=== PATIENT | male | born 1980 | race Caucasian/White ===

== ENCOUNTER 2019-08-07 19:49 | Emergency (ER) | payer OTHER, SELFPAY ==
--- OUTSIDE RECORDS SUMMARY | 2019-08-07 19:51 | XMS REPORT ---
:1980 Author Organization [facility] t Address [address] Mcgrath [address] [place] [id number] Care Team Providers Name Role Phone UNKNOWN Primary Care Physician Unavailable HAWA CONTRERAS M.D. Attending Clinician Unavailable HAWA CONTRERAS M.D. Admitting Clinician Unavailable Problems This patient has no known problems. Allergies, Adverse Reactions, Alerts This patient has no known allergies or adverse reactions. Medications This patient has no known medications. Procedures This patient has no known procedures. Results Test Description Test Time Test Comments Results Result Comments Source Thyroid Stimulating Hormone (TSH) 2016-12-06 13:34:00 Test Item Value Reference Range Interpretation Comme nts TSH (test code = TSH) 1.59 mIU/mL 0.270-4.200 N RPR, [id number] 12:29:00 Test Item Value Reference Range Interpretation Comments RPR (test code = RPR) Non-Reactive Non-Reactive N
[2019-08-07 20:57] LABS: Absolute Lymphocytes (CBC) 1.6 K/uL (0.7-4.9); Basophils % 0.4 % (0-1.3); Hematocrit 45.1 % (39.6-49.0); Lymphocytes % 20.6 % (15.3-44.8); MPV 8.9 fL (7.6-11.3); RBC Red Blood Cell Count 4.92 M/uL (4.33-5.43)
[2019-08-07 21:03] LABS: Barbiturates NEGATIVE (NEGATIVE); Benzodiazepines POSITIVE (NEGATIVE); Cocaine POSITIVE (NEGATIVE); METHAMPHETAM POSITIVE (NEGATIVE); Methadone NEGATIVE (NEGATIVE); Opiates POSITIVE (NEGATIVE); Phencyclidine NEGATIVE (NEGATIVE); THC Cannibis NEGATIVE (NEGATIVE)
[2019-08-07] MEDS ORDERED: THIAMINE 200 MG/2 ML INJ ONE (21:03)
[2019-08-07] MEDS ORDERED: NA CHLORIDE 0.9% 1,000 ML ONE (21:04)
[2019-08-07 21:06] LABS: Protime INR 1.01
[2019-08-07] MEDS ORDERED: NICOTINE 21 MG/PAT TD ONE (21:06)
[2019-08-07 21:09] LABS: Urine Blood NEGATIVE (NEG); Urine Glucose NEGATIVE (NEG); Urine Protein NEGATIVE (NEG); Urine Specific Gravity >1.030 (1.005-1.030); Urine pH 5.5 (5.0-7.0)
[2019-08-07 21:23] LABS: ALT/SGPT 18 U/L (12-78); AST/SGOT 11 U/L (15-37); Albumin 3.2 g/dL (3.4-5.0); Alkaline Phosphatase 105 U/L (45-117); BUN Blood Urea Nitrogen 7 mg/dL (7-18); Bicarbonate 24 mmol/L (21-32); Bilirubin Direct < 0.1 mg/dL (0-0.2); Bilirubin Total 0.3 mg/dL (0.2-1.0); Glucose Level 119 mg/dL (74-106); Potassium 3.5 mmol/L (3.5-5.1); Sodium Level 142 mmol/L (136-145)
--- NOTE | 2019-08-07 23:20 | ER ---
Nurse's Notes [facility] Name: Dami Newton Age: 39 yrs Sex: Male : 1980 Arrival Date: 08/07/2019 Time: 19:56 Bed 15 Private MD: Diagnosis: Alcohol abuse with intoxication;Abuse of non-psychoactive substances;Cocaine abuse;Major depressive disorder, recurrent;Bipolar disorder Presentation: 08/06 19:56 Chief complaint: EMS states: He is under the influence of alcohol and medications. He ca1 said he took Klonopin, Hydrocodone and Lexapro. His mom called us because he was talking about hanging himself. Reports History of previous suicide attempts. Pt has history of schizophrenia and bipolar and has not taken his meds for 5-6 months. Coronavirus screen: Proceed with normal triage. Patient denies a cough. Patient denies shortness of breath or difficulty breathing. Patient denies measured and/or subjective temperature greater than 100.4F prior to today's visit. Patient denies travel on a cruise ship or to a country the [facility] currently lists as an affected area. Patient denies contact with known and/or suspected case of COVID-19. Ebola Screen: Patient negative for fever greater than or equal to 101.5 degrees Fahrenheit, and additional compatible Ebola Virus Disease symptoms Patient denies exposure to infectious person. Patient denies travel to an Ebola-affected area in the 21 days before illness onset. No symptoms or risks identified at this time. Initial Sepsis Screen: Does the patient meet any 2 criteria? No. Patient's initial sepsis screen is negative. Does the patient have a suspected source of infection? No. Patient's initial sepsis screen is negative. Risk Assessment: Do you want to hurt yourself or someone else? Patient reports no desire to harm self or others. Onset of symptoms was August 07, 2019. 19:56 Method Of Arrival: EMS: [facility] ca1 19:56 Acuity: STEVE 2 ca1 21:36 Care prior to arrival: None. Activity prior to arrival: None. ls4 Triage Assessment: 21:36 General: Appears obese, Behavior is slurring words, unbalanced unsteady gate . Smells ls4 of alcohol, Reports. Pain: Denies pain. EENT: No deficits noted. No signs and/or symptoms were reported regarding the EENT system. Neuro: Level of Consciousness is awake, alert, obeys commands, Oriented to person, place, time, situation. Cardiovascular: No deficits noted. Denies chest pain, diaphoresis, fatigue, lightheadedness, nausea, palpitations, shortness of breath, syncope, vomiting. Respiratory: Airway is patent Respiratory effort is even, unlabored. GI: Abdomen is round non-distended, obese, Bowel sounds present X 4 quads. Patient currently denies abdominal pain, cramping, diarrhea, nausea, pain, vomiting. : No deficits noted. No signs and/or symptoms were reported regarding the genitourinary system. Derm: Skin is intact, is healthy with good turgor, Skin is dry, Skin is pink, warm \T\ dry. Musculoskeletal: Circulation, motion, and sensation intact. Capillary refill < 3 seconds, Range of motion: intact in all extremities, Swelling absent. Historical: - Allergies: 20:01 Ruxulti; ca1 - PMHx: 20:01 addiction; Anxiety; Bipolar disorder; Depression; Paranoid Schizophrenia; ca1 - PSHx: 20:01 paranasal surg; eye surg; ankle surg; ca1 - Immunization history:: Adult Immunizations up to date. - Social history:: Smoking status: Patient reports the use of cigarette tobacco products, smokes two packs cigarettes per day. Patient uses alcohol, on a daily basis. Patient/guardian denies using. Screenin:40 Abuse screen: Denies threats or abuse. Denies injuries from another. Nutritional ls4 screening: No deficits noted. Tuberculosis screening: No symptoms or risk factors identified. Fall Risk None identified. Assessment: 20:15 Reassessment: Pt reports he took Klonopin 8 tabs, Dille 5-6 tabs and Liter alcoholic ca1 drink. 20:19 Reassessment: Called Poison Control Center, Spoke with Radha. Suggest OD panel, EKG, ca1 cardiac and BP monitoring till baseline. Bolus if BP drops. Case # [id number]. 20:30 Reassessment: Ranjana Newton, , . Please call for updates. tl1 21:23 Pain: Denies pain. ls4 21:57 Reassessment: Patient appears in no apparent distress at this time. Patient and/or ls4 family updated on plan of care and expected duration. Pain level reassessed. Patient is alert, oriented x 3, equal unlabored respirations, skin warm/dry/pink. 08/07 00:00 Reassessment: Patient appears in no apparent distress at this time. Patient and/or ls4 family updated on plan of care and expected duration. Pain level reassessed. Patient is alert, oriented x 3, equal unlabored respirations, skin warm/dry/pink. [facility] POISON CONTROL CLOSED PT CASE. 02:00 Reassessment: Patient appears in no apparent distress at this time. Patient is alert, rr5 oriented x 3, equal unlabored respirations, skin warm/dry/pink. received from mary SUN for transfer to [facility] [place],awaiting for EMS transport. 02:59 Reassessment: Patient appears in no apparent distress at this time. Patient is alert, rr5 oriented x 3, equal unlabored respirations, skin warm/dry/pink. report given to [facility], awake, alert, ambulatory, breathing spontaneously at room air. no complaints made. Psych: 08/06 20:05 Objective: Patient is cooperative, Speech is slurred, Affect is flat. ls4 20:05 Subjective: Patient's mood is sad, hopeless, Delusions are denied, Hallucinations are ls4 denied Having thoughts of suicide. Plan for suicide is HANG HIMSELF. Interventions: Removed personal items and placed in bag. Urine collected and sent for urine drug test. Belonging list filled out. PAPER SCRUBS ON PT. Suicide Risk Assessment: Sad Person Scale: Sex of patient: Male: Score 1 point. Age of patient: Score 0 point if patient falls outside of specified age parameters. Depression: Score 1 point if signs of depression are present. Previous Attempt: Score 1 point if patient has previously attempted suicide. Substance Abuse: Score 1 point if patient abuses alcohol or drugs. Rational Thinking: Score 0 point if patient has rational thinking. Social Support: Score 1 point if social support is lacking and/or unavailable. Organized Plan: Score 1 point if patient had a plan in place. Relationship: Score 0 point if patient has a spouse or domestic partner. Chronic Sickness: Score 1 point if patient has illness, chronic, debilitating, or severe. TOTAL POINTS: If total points are 7-10, the proposed clinical action is to hospitalize or commit. Implement suicide precautions. Safety Checks: Personal items have been removed. Door is open. SITTER AT BEDSIDE. Patient uses one fifth of liquor, Last use was 3 hours ago. Patient does not have a history of DTs. Patient uses benzodiazepines Patient uses cocaine, Last use was 3 days ago. Patient uses hallucinogens Patient uses methamphetamines monthly, Last use was 1 months ago. Patient uses tobacco 2 packs Frequency daily, Last use was 3 hours ago. Vital Signs: 19:56 BP 102 / 61; Pulse 75; Resp 16 S; Temp 97.5(TE); Pulse Ox 98% on R/A; Weight 108.86 kg ca1 (R); Height 5 ft. 10 in. (177.80 cm) (R); 08/07 00:56 BP 116 / 60; Pulse 74; Resp 14; Temp 97.4; Pulse Ox 99% on R/A; Pain 0/10; ls4 08/06 19:56 Body Mass Index 34.44 (108.86 kg, 177.80 cm) ca1 ED Course: 08/06 19:56 Patient arrived in ED. ds1 20:00 Triage completed. ca1 20:01 Arm band placed on right wrist. ca1 20:04 Safety Checks: Personal items have been removed. The door is open or patient has been ls4 placed in a hallway bed/chair. 20:04 No provider procedures requiring assistance completed. Patient maintains SpO2 ls4 saturation greater than 95% on room air. 20:19 Trell Gutierrez MD is Attending Physician. [facility] 20:29 Mary Robin, CORINNE is Primary Nurse. ls4 20:45 Initial lab(s) drawn, by me, sent to lab. EKG done, by ED staff, reviewed by Trell ltPrashanth Gutierrez MD. Inserted saline lock: 20 gauge in right antecubital area, using aseptic technique. 21:40 Patient has correct armband on for positive identification. Side rails up X 1. ls4 Valuables inventory done. Locked in safe. See valuables checklist. Eunice PCT at bedside. Sitter at bedside. 21:57 No apparent distress. Resting quietly. ls4 08/07 02:56 IV discontinued, intact, bleeding controlled, No redness/swelling at site. Pressure rr5 dressing applied. Administered Medications: 08/06 21:00 Drug: Thiamine 100 mg Route: IV; Rate: per protocol; Site: right antecubital; ls4 21:55 Follow up: Response: No adverse reaction; IV Status: Completed infusion; IV Intake: 1ml 4 21:01 Drug: NS 0.9% 1000 ml Route: IV; Rate: 1 bolus; Site: right antecubital; ls4 21:55 Follow up: IV Status: Completed infusion; IV Intake: 1000ml 4 08/07 00:59 Drug: Banana Bag - (NS 0.9% 1000 ml, foLIC Acid 1 mg, Thiamine 100 mg, Multivitamin 1 ls4 amp) Route: IV; Rate: 125 ml/hr; Site: right antecubital; 03:04 Follow up: Response: No adverse reaction; IV Status: Completed infusion; Infusion rr5 continued upon transfer; IV Intake: 250ml Intake: 08/06 21:55 IV: 1ml; Total: 1ml. 4 :55 IV: 1000ml; Total: 1001ml. 4 08/07 03:04 IV: 250ml; Total: 1251ml. rr5 Outcome: 08/06 23:18 ER care complete, transfer ordered by . [facility] 08/07 02:56 Transferred by ground EMS to other acute care facility: [facility]. rr5 Transfer form completed. Condition: stable Instructed on the need for transfer. 03:03 Patient left the ED. rr5 Signatures: Trell Gutierrez MD MD cha Sanford, Demi ds1 Christina Jennings RN RN tl1 Mary Robin RN RN ls4 Janes Cameron RN RN rr5 Lisa Singh RN RN ca1 Eunice Monsivais lt1 Corrections: (The following items were deleted from the chart) 08/06 20:02 19:56 Chief complaint: EMS states: He is under the influence of alcohol and ca1 medications. He said he took Klonopin, Hydrocodone and Lexapro. His mom called us because he was talking about hanging himself. Reports History of previous suicide attempts. ca1 20:15 20:11 Reassessment: ca1 ca1 20:19 20:11 Reassessment: Reassessment: ca1 ca1 21:02 20:10 Reassessment: Pt reports he took Klonopin 8 tabs, Dille 5-6 tabs and Liter ca1 alcoholic drink. [facility] 08/07 01:06 00:00 Reassessment: Patient appears in no apparent distress at this time. Patient ls4 and/or family updated on plan of care and expected duration. Pain level reassessed. Patient is alert, oriented x 3, equal unlabored respirations, skin warm/dry/pink. ls4
--- NOTE | 2019-08-07 23:20 | EDPHYS ---
Physician Documentation [facility] Name: Dami Nweton Age: 39 yrs Sex: Male : 1980 Arrival Date: 08/07/2019 Time: 19:56 Bed 15 Private MD: ED Physician Trell Gutierrez HPI: 08/06 20:45 This 39 yrs old Male presents to ER via EMS with complaints of Suicidal karmen Ideation. 20:45 The patient presents to the emergency department with depression, a history of karmen substance abuse, Type: beer, the amount of abuse is unknown. Onset: The symptoms/episode began/occurred 3 day(s) ago. Past psychiatric history: Prior diagnosis: depression, Psychiatric medications include: Klonipin, Lexapro, hydrocodone. Associated signs and symptoms: Pertinent positives; anxiety, depression, substance abuse, suicide ideation. Severity of symptoms: At their worst the symptoms were mild. The patient has experienced similar episodes in the past, multiple times. Historical: - Allergies: 20:01 Ruxulti; ca1 - PMHx: 20:01 addiction; Anxiety; Bipolar disorder; Depression; Paranoid Schizophrenia; ca1 - PSHx: 20:01 paranasal surg; eye surg; ankle surg; ca1 - Immunization history:: Adult Immunizations up to date. - Social history:: Smoking status: Patient reports the use of cigarette tobacco products, smokes two packs cigarettes per day. Patient uses alcohol, on a daily basis. Patient/guardian denies using. ROS: 20:50 Constitutional: Negative for fever, chills, and weight loss, Eyes: Negative for injury, karmen pain, redness, and discharge, ENT: Negative for injury, pain, and discharge, Neck: Negative for injury, pain, and swelling, Cardiovascular: Negative for chest pain, palpitations, and edema, Respiratory: Negative for shortness of breath, cough, wheezing, and pleuritic chest pain, Abdomen/GI: Negative for abdominal pain, nausea, vomiting, diarrhea, and constipation, Back: Negative for injury and pain, : Negative for injury, bleeding, discharge, and swelling, MS/Extremity: Negative for injury and deformity, Skin: Negative for injury, rash, and discoloration, Neuro: Negative for headache, weakness, numbness, tingling, and seizure, Allergy/Immunology: Negative for hives, rash, and allergies, Endocrine: Negative for neck swelling, polydipsia, polyuria, polyphagia, and marked weight changes, Hematologic/Lymphatic: Negative for swollen nodes, abnormal bleeding, and unusual bruising. 20:50 Psych: Positive for anxiety, depression, suicidal ideation. Exam: 20:50 Constitutional: This is a well developed, well nourished patient who is awake, alert, karmen and in no acute distress. Head/Face: Normocephalic, atraumatic. Eyes: Pupils equal round and reactive to light, extra-ocular motions intact. Lids and lashes normal. Conjunctiva and sclera are non-icteric and not injected. Cornea within normal limits. Periorbital areas with no swelling, redness, or edema. ENT: Nares patent. No nasal discharge, no septal abnormalities noted. Tympanic membranes are normal and external auditory canals are clear. Oropharynx with no redness, swelling, or masses, exudates, or evidence of obstruction, uvula midline. Mucous membranes moist. Neck: Trachea midline, no thyromegaly or masses palpated, and no cervical lymphadenopathy. Supple, full range of motion without nuchal rigidity, or vertebral point tenderness. No Meningismus. Chest/axilla: Normal chest wall appearance and motion. Nontender with no deformity. No lesions are appreciated. Cardiovascular: Regular rate and rhythm with a normal S1 and S2. No gallops, murmurs, or rubs. Normal PMI, no JVD. No pulse deficits. Respiratory: Lungs have equal breath sounds bilaterally, clear to auscultation and percussion. No rales, rhonchi or wheezes noted. No increased work of breathing, no retractions or nasal flaring. Abdomen/GI: Soft, non-tender, with normal bowel sounds. No distension or tympany. No guarding or rebound. No evidence of tenderness throughout. Back: No spinal tenderness. No costovertebral tenderness. Full range of motion. Skin: Warm, dry with normal turgor. Normal color with no rashes, no lesions, and no evidence of cellulitis. MS/ Extremity: Pulses equal, no cyanosis. Neurovascular intact. Full, normal range of motion. Neuro: Awake and alert, GCS 15, oriented to person, place, time, and situation. Cranial nerves II-XII grossly intact. Motor strength 5/5 in all extremities. Sensory grossly intact. Cerebellar exam normal. Normal gait. 20:50 Psych: Behavior/mood is cooperative, Affect is calm, Oriented to person, place, time, Patient has no thoughts/intents to harm self or others. Judgement / Insight is normal. Delusions/hallucinations are not present. 20:55 ECG was reviewed by the Attending Physician. karmen Vital Signs: 19:56 BP 102 / 61; Pulse 75; Resp 16 S; Temp 97.5(TE); Pulse Ox 98% on R/A; Weight 108.86 kg ca1 (R); Height 5 ft. 10 in. (177.80 cm) (R); 08/07 00:56 BP 116 / 60; Pulse 74; Resp 14; Temp 97.4; Pulse Ox 99% on R/A; Pain 0/10; ls4 08/06 19:56 Body Mass Index 34.44 (108.86 kg, 177.80 cm) ca1 MDM: 08/06 20:19 Patient medically screened. karmen 20:52 Data reviewed: vital signs, nurses notes, lab test result(s), EKG, radiologic studies. [facility] 20:52 Differential diagnosis: drug withdrawal. acute psychotic break, depression, psychosis karmen secondary to non-compliance. Data interpreted: bus monitor: rate is 75 beats/min, Pulse oximetry: on room air is 98 %. Test interpretation: by ED physician or midlevel provider: ECG, plain radiologic studies. Counseling: I had a detailed discussion with the patient and/or guardian regarding: the historical points, exam findings, and any diagnostic results supporting the discharge/admit diagnosis, lab results, the need to transfer to another facility, for higher level of care, [facility] does not immediately have the required specialist. ED course: wants help, will go voluntary. ED course: willl transfer to psych. 08/06 20:21 Order name: Acetaminophen; Complete Time: 23:15 [facility] 08/06 20:21 Order name: Basic Metabolic Panel; Complete Time: 23:15 [facility] 08/06 20:21 Order name: CBC with Diff; Complete Time: 23:15 [facility] 08/06 20:21 Order name: ETOH Level; Complete Time: 23:15 [facility] 08/06 20:21 Order name: Hepatic Function; Complete Time: 23:15 [facility] 08/06 20:21 Order name: PT-INR; Complete Time: 23:15 [facility] 08/06 20:21 Order name: Ptt, Activated; Complete Time: 23:15 [facility] 08/06 20:21 Order name: Salicylate; Complete Time: 23:15 [facility] 08/06 20:21 Order name: Urine Drug Screen; Complete Time: 23:15 [facility] 08/06 20:32 Order name: Urine Dipstick--Ancillary (enter results); Complete Time: 23:15 ar5 08/07 00:18 Order name: ETOH Level [facility] 08/06 20:21 Order name: EKG; Complete Time: 20: [facility] 08/06 20:21 Order name: EKG - Nurse/Tech; Complete Time: 20:45 [facility] 08/06 20:21 Order name: IV Saline Lock; Complete Time: 20:45 [facility] 08/06 20:21 Order name: Labs collected and sent; Complete Time: 20:45 [facility] 08/06 20:21 Order name: Urine Dipstick-Ancillary (obtain specimen); Complete Time: 20:46 [facility] 08/06 20:21 Order name: Misc. Order: call poison control; Complete Time: 21:01 [facility] EC:55 Rate is 76 beats/min. Rhythm is regular. QRS [place] is Normal. [place] interval is normal. QRS karmen interval is normal. QT interval is normal. No Q waves. T waves are Normal. No ST changes noted. Clinical impression: Normal ECG and No evidence of ischemia. Interpreted by me. Reviewed by me. Administered Medications: 21:00 Drug: Thiamine 100 mg Route: IV; Rate: per protocol; Site: right antecubital; ls4 21:55 Follow up: Response: No adverse reaction; IV Status: Completed infusion; IV Intake: 1ml 4 21:01 Drug: NS 0.9% 1000 ml Route: IV; Rate: 1 bolus; Site: right antecubital; ls4 21:55 Follow up: IV Status: Completed infusion; IV Intake: 1000ml 4 08/07 00:59 Drug: Banana Bag - (NS 0.9% 1000 ml, foLIC Acid 1 mg, Thiamine 100 mg, Multivitamin 1 ls4 amp) Route: IV; Rate: 125 ml/hr; Site: right antecubital; 03:04 Follow up: Response: No adverse reaction; IV Status: Completed infusion; Infusion rr5 continued upon transfer; IV Intake: 250ml Disposition: 08/07/19 23:18 Transfer ordered to Psych Facility. Diagnosis are Alcohol abuse with intoxication, Abuse of non-psychoactive substances, Cocaine abuse, Major depressive disorder, recurrent, Bipolar disorder. - Reason for transfer: Higher level of care. - Accepting physician is to psych. - Condition is Stable. - Problem is new. - Symptoms have improved. Signatures: Dispatcher [employer] EDTrell Mahan MD MD cha Stewart, Lisa, RN RN ls4 Janes Cameron RN RN rr5 Lisa Singh RN RN ca1 Corrections: (The following items were deleted from the chart) 03:03 08/06 23:18 08/07/2019 23:18 Transfer ordered to Psych Facility. Diagnosis is Alcohol rr5 abuse with intoxication; Abuse of non-psychoactive substances; Cocaine abuse; Major depressive disorder, recurrent; Bipolar disorder. Reason for transfer: Higher level of care. Accepting physician is to psych. Condition is Stable. Problem is new. Symptoms have improved. karmen
[2019-08-08] MEDS ORDERED: NA CHLORIDE 0.9% 1,000 ML ONE (00:28)
[2019-08-08] MEDS ORDERED: THIAMINE 200 MG/2 ML INJ ONE (00:28)
[2019-08-08] MEDS ORDERED: MULTIVITAMINS 10 ML VIAL (INJ) IV ONE ×2 (00:29→00:32)
[2019-08-08] MEDS ORDERED: FOLIC ACID 5 MG/ML VIAL ONE (00:30)
[2019-08-08 03:19] VITALS: BP 116/60; TEMP 97.4; O2SAT 99
--- NOTE | 2019-08-10 07:05 | EKG ---
Test Date: 2019-08-07 Test Time: 20:30:56 Hot Press Operator: FRANCESCO MEASUREMENT RESULTS: Intervals: Rate: 76 VA: 160 QRSD: 80 QT: 400 QTc: 450 [place]: P: 40 VA: 160 QRS: 22 T: 39 INTERPRETIVE STATEMENTS: Normal sinus rhythm Normal ECG Compared to ECG 02/01/2017 13:58:10 No significant changes Electronically Signed On 08-10-19 07:00:45 CDT by Michael Charles
== END 2019-08-08 03:03 ==
LOC: ER 19:49
DX: F10.129 Alcohol abuse with intoxication, unspecified (principal); F14.10 Cocaine abuse, uncomplicated; F55.8 Abuse of other non-psychoactive substances; F33.9 Major depressive disorder, recurrent, unspecified; F20.0 Paranoid schizophrenia; F17.210 Nicotine dependence, cigarettes, uncomplicated; Z88.8 Allergy status to other drugs, medicaments and biological substances
CPT/HCPCS: 96365; 96367; 93005; 85025; 80048; 36415; 80320 ×2; 80329 ×2; 85610; 80076; 80307 ×8; 85730; 81003; 99285; 96366; J3411 ×2; J7030 ×2

== ENCOUNTER 2020-08-29 13:21 | Emergency (ER) | payer OTHER, SELFPAY ==
--- OUTSIDE RECORDS SUMMARY | 2020-08-29 13:24 | XMS REPORT | Continuity of Care Document ---
:[address] [facility] t Address [address] [place] [address] Care Team Providers Name Role Phone UNKNOWN Primary Care Physician Unavailable HAWA CONTRERAS M.D. Attending Clinician Unavailable HAWA CONTRERAS M.D. Admitting Clinician Unavailable Problems Condition Condition Condition Status Onset Resolution Last Treating Co mments Source Name Details Category Date Date Treatment Clinician Date Abdominal Problem Active 2012-03-14 Me moria Pain In 14:05:37 l The Right [place] Upper Abdominal Belly Pain In (Ruq) The Right Upper Belly (Ruq) Active 2 [facility] Recent Problem Active 2012-03-14 Memor ia Weight 14:05:37 l Loss Recent [place] Involuntar Weight y Over Loss Several Involuntar Months y Over Several Months Active 2 [facility] Allergies, Adverse Reactions, Alerts This patient has no known allergies or adverse reactions. Family History Family Member Diagnosis Comments Start Date Stop Date Source Unknown Family Family History 2012-03-14 2012-03-14 Roseann duran [place] Member 14:05:37 14:05:37 Social History Social Habit Start Date Stop Date Quantity Comments Source Social History 2012-03-14 2012-03-14 [facility] henry 14:05:37 14:05:37 Medications Ordered Filled Start Stop Current Ordering Indication Dosage Frequency Signature Comments Components Source Medication Medication Date Date Medication? Clinician (SIG) Name Name Suboxone 2011-03 Yes (Active) Kelvin cheryl SUBL 2-22 l 14:05: [place] 38 CeleXA 40 2011-03 Yes (Active) Mem oria MG Oral 2-22 l Tablet 14:05: [place] 37 Procedures This patient has no known procedures. Encounters Start End Encounter Admission Attending Care Care Encounter Source Date/Time Date/Time Type Type Clinicians Facility Department ID 2012-03-14 2012-03-14 Outpatient 3 [id number] 08:05:53 08:05:37 Results Test Description Test Time Test Comments Results Result Comments Source Thyroid Stimulating Hormone (TSH) 2016-12-06 13:34:00 Test Item Value Reference Range Interpretation Comme nts TSH (test code = TSH) 1.59 mIU/mL 0.270-4.200 N RPR, [id number] 12:29:00 Test Item Value Reference Range Interpretation Comments RPR (test code = RPR) Non-Reactive Non-Reactive N
[2020-08-29 14:56] LABS: Urine Blood Negative (Negative); Urine Glucose Negative (Negative); Urine Protein 1+ (Negative); Urine Specific Gravity >=1.030 (1.005-1.030); Urine pH 5.5 (5.0-7.0)
[2020-08-29 15:15] LABS: Barbiturates NEGATIVE (NEGATIVE); Benzodiazepines NEGATIVE (NEGATIVE); Cocaine NEGATIVE (NEGATIVE); METHAMPHETAM NEGATIVE (NEGATIVE); Methadone NEGATIVE (NEGATIVE); Opiates NEGATIVE (NEGATIVE); Phencyclidine NEGATIVE (NEGATIVE); THC Cannibis NEGATIVE (NEGATIVE)
[2020-08-29] MEDS ORDERED: ONDANSETRON 4 MG/2 ML VIAL ONE (15:19)
[2020-08-29] MEDS ORDERED: NA CHLORIDE 0.9% 1,000 ML ONE (15:20)
[2020-08-29 15:36] LABS: Absolute Lymphocytes (CBC) 1.8 K/uL (0.7-4.9); Basophils % 0.5 % (0-1.3); Hematocrit 48.8 % (39.6-49.0); MPV 9.1 fL (7.6-11.3); RBC Red Blood Cell Count 5.48 M/uL (4.33-5.43)
[2020-08-29] MEDS ORDERED: HALOPERIDOL LACT 5 MG/ML INJ ONE (15:40)
[2020-08-29 15:51] LABS: Protime INR 1.08
[2020-08-29 15:55] LABS: ALT/SGPT 17 U/L (12-78); AST/SGOT 8 U/L (15-37); Albumin 3.9 g/dL (3.4-5.0); Alkaline Phosphatase 82 U/L (45-117); BUN Blood Urea Nitrogen 7 mg/dL (7-18); Bicarbonate 27 mmol/L (21-32); Bilirubin Direct < 0.1 mg/dL (0-0.2); Bilirubin Total 0.4 mg/dL (0.2-1.0); Glucose Level 93 mg/dL (74-106); Potassium 3.5 mmol/L (3.5-5.1); Protein, Total 8.1 g/dL (6.4-8.2); Sodium Level 138 mmol/L (136-145)
--- NOTE | 2020-08-29 16:00 | ER ---
Nurse's Notes [facility] Name: Dami Newton Age: 40 yrs Sex: Male : 1980 Arrival Date: 08/29/2020 Time: 13:23 Bed 15 Private MD: None, None Diagnosis: Suicidal ideations;Paranoid schizophrenia Presentation: 08/29 14:01 Chief complaint: Patient states: " I feel like there's something all over my skin and ph clothes that's burning my skin." Also reports auditory and visual hallucinations. States that he has been taking medications as prescribed. States he has non-stop thoughts of killing himself. 14:04 Coronavirus screen: Client denies travel out of the [place] in the last 14 days. Ebola ph Screen: No symptoms or risks identified at this time. Initial Sepsis Screen: Does the patient meet any 2 criteria? No. Patient's initial sepsis screen is negative. Does the patient have a suspected source of infection? No. Patient's initial sepsis screen is negative. Risk Assessment: Do you want to hurt yourself or someone else? Patient reports no desire to harm self or others. Onset of symptoms was August 29, 2020. 14:04 Method Of Arrival: Ambulatory ph 14:04 Acuity: STEVE 2 ph Triage Assessment: 14:15 General: Appears distressed, comfortable, unkempt, Behavior is cooperative, appropriate bp for age, anxious. Pain: Denies pain. EENT: No deficits noted. Neuro: Level of Consciousness is awake, alert, obeys commands, Oriented to Appropriate for age. Cardiovascular: No deficits noted. Respiratory: No deficits noted. GI: No signs and/or symptoms were reported involving the gastrointestinal system. : No signs and/or symptoms were reported regarding the genitourinary system. Derm: No deficits noted. Musculoskeletal: No deficits noted. Historical: - Allergies: 14: Ruxulti; ph - PMHx: 14: addiction; Anxiety; Bipolar disorder; Depression; Paranoid Schizophrenia; ph - PSHx: 14:01 paranasal surg; eye surg; ankle surg; ph - Immunization history:: Adult Immunizations unknown. - Social history:: Smoking status: Patient reports the use of cigarette tobacco products, smokes one pack cigarettes per day. Patient/guardian denies using alcohol, street drugs. - Family history:: not pertinent. - Hospitalizations: : No recent hospitalization is reported. Screenin:15 Abuse screen: Denies threats or abuse. Denies injuries from another. Nutritional bp screening: No deficits noted. Tuberculosis screening: No symptoms or risk factors identified. Fall Risk None identified. Assessment: 14:15 General: SEE TRIAGE NOTE. bp 16:00 Reassessment: Patient appears in no apparent distress at this time. Patient and/or bp family updated on plan of care and expected duration. Pain level reassessed. Patient is alert, oriented x 3, equal unlabored respirations, skin warm/dry/pink. PT MEDICALLY CLEARED. 18:00 Reassessment: [facility]. bp 08/30 13:49 Reassessment: Patient appears in no apparent distress at this time. Patient and/or tw2 family updated on plan of care and expected duration. Pain level reassessed. Patient is alert, oriented x 3, equal unlabored respirations, skin warm/dry/pink. Vital Signs: 08/29 14:04 BP 146 / 96; Pulse 92; Resp 18; Temp 98.0; Pulse Ox 98% on R/A; Height 5 ft. 8 in. ph (172.72 cm); 16:00 BP 118 / 86; Pulse 77; Resp 17; Pulse Ox 96% ; bp 20:00 BP 119 / 68; Pulse 75; Resp 18; Temp 98.7; Pulse Ox 91% ; fm2 20:00 BP 119 / 68; Pulse 75; Resp 18; Temp 98; Pulse Ox 91% ; fm2 08/30 00:00 BP 118 / 58; Pulse 71; Resp 18; Temp 97.1; Pulse Ox 93% ; fm2 04:00 BP 120 / 67; Pulse 89; Resp 18; Temp 97.5; Pulse Ox 95% ; fm2 08:00 BP 131 / 72; Pulse 65; Resp 15; Temp 98.2; Pulse Ox 95% ; tf1 ED Course: 08/29 13:23 Patient arrived in ED. hh 13:24 None, None is Private Physician. hh 14:05 Triage completed. ph 14:05 Arm band placed on Patient placed in an exam room, on a stretcher. ph 14:06 Brain Jackson, CORINNE is Primary Nurse. bp 14:14 Miguel Abdi MD is Attending Physician. rn 14:15 Patient has correct armband on for positive identification. Bed in low position. Call bp light in reach. Side rails up X2. Adult w/ patient. 15:30 EKG done, by ED staff, reviewed by Miguel Abdi MD. formerly [facility] 15:30 Inserted saline lock: 20 gauge in right antecubital area, using aseptic technique. bp Blood collected. 16:48 contacted [facility] to have pt evaluated by screener. bd 17:58 Conchis Johnson (Lisa) (mother to pt) [phone]. [phone] 18:37 faxed chart to [facility] and [facility]. bd 20:48 [facility] called and said he will be on a waiting list. ar5 08/30 10:12 Primary Nurse role handed off by Brain Jackson, CORINNE tw2 10:12 Anne Weems, CORINNE is Primary Nurse. tw2 13:39 No provider procedures requiring assistance completed. tw2 13:49 IV discontinued, intact, bleeding controlled, No redness/swelling at site. Pressure tw2 dressing applied. Administered Medications: 08/29 15:19 CANCELLED (Duplicate Order): Geodon (ziprasidone) 10 mg IM once rn 15:30 Drug: NS 0.9% 1000 ml Route: IV; Rate: 1000 ml; Site: right antecubital; bp 18:23 Follow up: IV Status: Completed infusion; IV Intake: 1000ml bp 15:30 Drug: Zofran (Ondansetron) 4 mg Route: IVP; Site: right antecubital; bp 18:24 Follow up: Response: No adverse reaction bp 15:30 Drug: HALdol (as decanoate) 5 mg Route: IM; Site: left deltoid; bp 18:24 Follow up: Response: Anxiety decreased bp Intake: 18:23 IV: 1000ml; Total: 1000ml. bp Outcome: 15:59 ER care complete, transfer ordered by . rn 08/30 13:27 Discharge ordered by . rn 13:49 Patient left the ED. tw2 Signatures: Alicia Vann Roman, MD MD rn Hall, Patricia, RN RN Anne Weems RN RN 2 Pat Aviles 3 Brain Jackson RN RN bp [place], [place]fel fm2 Cindi Sarah ar5 Sumeet Sosa RN RN tf1 Desi Champagne Corrections: (The following items were deleted from the chart) 08/29 14:05 14:01 Chief complaint: Patient states: " I feel like there's something all over my skin ph and clothes that's burning my skin." Also reports auditory and visual hallucinations. States that he has been taking medications as prescribed. ph
--- NOTE | 2020-08-29 16:00 | EDPHYS ---
Physician Documentation [facility] Name: Dami Newton Age: 40 yrs Sex: Male : 1980 Arrival Date: 08/29/2020 Time: 13:23 Bed 15 Private MD: None, None ED Physician Miguel Abdi HPI: 08/29 15:53 This 40 yrs old Male presents to ER via Ambulatory with complaints of mental rn health evaluation, Suicidal Ideation. 15:53 The patient presents to the emergency department with suicide ideation. Onset: The rn symptoms/episode began/occurred at an unknown time. Associated signs and symptoms: Pertinent positives; anxiety, delusions, hallucinations, suicide ideation, Pertinent negatives: fever. Associated signs and symptoms: Pertinent negatives: homicidal ideation. Severity of symptoms: At their worst the symptoms were moderate in the emergency department the symptoms are unchanged. The patient has experienced similar episodes in the past. The patient has not recently seen a physician. Reports longstanding thoughts of self-harm, worse recently, no specific trigger. + suicidal ideations with command auditory hallucinations. Reports sees [facility] and they have been titrating meds down. No attempt today. Also increased paranoia and not eating lately because feels like someone is going to poison him.. Historical: - Allergies: 14:01 Ruxulti; ph - PMHx: 14:01 addiction; Anxiety; Bipolar disorder; Depression; Paranoid Schizophrenia; ph - PSHx: 14:01 paranasal surg; eye surg; ankle surg; ph - Immunization history:: Adult Immunizations unknown. - Social history:: Smoking status: Patient reports the use of cigarette tobacco products, smokes one pack cigarettes per day. Patient/guardian denies using alcohol, street drugs. - Family history:: not pertinent. - Hospitalizations: : No recent hospitalization is reported. ROS: 15:53 Constitutional: Negative for fever, chills, and weight loss, Eyes: Negative for injury, rn pain, redness, and discharge, ENT: Negative for injury, pain, and discharge, Neck: Negative for injury, pain, and swelling, Cardiovascular: Negative for chest pain, palpitations, and edema, Respiratory: Negative for shortness of breath, cough, wheezing, and pleuritic chest pain, Abdomen/GI: Negative for abdominal pain, vomiting, diarrhea, and constipation, Back: Negative for injury and pain, MS/Extremity: Negative for injury and deformity, Skin: Negative for injury, rash, and discoloration, Neuro: Negative for headache, weakness, numbness, tingling, and seizure, Psych: + for suicidal ideation and auditory hallucinations Exam: 15:53 Constitutional: Disheveled male who doesn't make eye contact, + strong body odor rn Head/Face: Normocephalic, atraumatic. ENT: dry MM Neck: Trachea midline, no masses palpated, and no cervical lymphadenopathy. Supple, full range of motion without nuchal rigidity, or vertebral point tenderness. No Meningismus. Cardiovascular: Regular rate and rhythm. No pulse deficits. Respiratory: No increased work of breathing, no retractions or nasal flaring. Abdomen/GI: soft, non-tender Skin: Warm, dry MS/ Extremity: Pulses equal, no cyanosis. Neuro: Awake and alert, GCS 15, oriented to person, place, time, and situation. Cranial nerves II-XII grossly intact. Motor strength 5/5 in all extremities. Sensory grossly intact. Cerebellar exam normal. Vital Signs: 14:04 BP 146 / 96; Pulse 92; Resp 18; Temp 98.0; Pulse Ox 98% on R/A; Height 5 ft. 8 in. ph (172.72 cm); 16:00 BP 118 / 86; Pulse 77; Resp 17; Pulse Ox 96% ; bp 20:00 BP 119 / 68; Pulse 75; Resp 18; Temp 98.7; Pulse Ox 91% ; fm2 20:00 BP 119 / 68; Pulse 75; Resp 18; Temp 98; Pulse Ox 91% ; fm2 09 00:00 BP 118 / 58; Pulse 71; Resp 18; Temp 97.1; Pulse Ox 93% ; fm2 04:00 BP 120 / 67; Pulse 89; Resp 18; Temp 97.5; Pulse Ox 95% ; fm2 08:00 BP 131 / 72; Pulse 65; Resp 15; Temp 98.2; Pulse Ox 95% ; tf1 MDM: 08/29 14:14 Patient medically screened. rn 15:58 Differential diagnosis: depression, psychosis secondary to non-compliance, paranoid rn schizophrenia, suicidal ideations. Data reviewed: vital signs, nurses notes, lab test result(s), and as a result, I will admit patient. Counseling: I had a detailed discussion with the patient and/or guardian regarding: the historical points, exam findings, and any diagnostic results supporting the discharge/admit diagnosis, lab results, the need to transfer to another facility. 08/30 01:19 ED course: Resting comfortably, NAD, VSS, no combative activity.. mh7 06:52 ED course: Resting comfortably, NAD, VSS. No acute issues overnight. Continues to await mh7 placement at psychiatric facility.. 07:09 ED course: Pt resting comfortably, stable vitals.. rn 13:25 ED course: Reevaluated patient, now looks like a totally different andrea, smiling, making rn eye contact, states feels rested and longer having thoughts of hurting himself. States wants to go home and will not hurt himself. Will call mother to pick him up. States feels much better after sleeping, hadn't been to sleep in a few days. has medication at home and is thankful for the help.. 08/29 14:29 Order name: Acetaminophen; Complete Time: 16:26 08/29 14:29 Order name: Basic Metabolic Panel; Complete Time: 16: rn 08/29 14:29 Order name: CBC with Diff; Complete Time: 16: rn 08/29 14:29 Order name: ETOH Level; Complete Time: 16: rn 08/29 14:29 Order name: Hepatic Function; Complete Time: 16:26 rn 08/29 14:29 Order name: PT-INR; Complete Time: 16:26 rn 08/29 14:29 Order name: Ptt, Activated; Complete Time: 16:26 rn 08/29 14:29 Order name: Salicylate; Complete Time: 16:26 rn 08/29 14:29 Order name: Urine Drug Screen; Complete Time: 15:19 rn 08/29 14:55 Order name: Urine Dipstick-Ancillary; Complete Time: 15:19 EDNV 08/29 19:22 Order name: SARS-COV-2 RT PCR EDNV 08/29 14:29 Order name: Suicide Precautions; Complete Time: 15:43 rn 08/29 14:29 Order name: EKG; Complete Time: 14:30 rn 08/29 14:29 Order name: EKG - Nurse/Tech; Complete Time: 15:43 rn 08/29 14:29 Order name: IV Saline Lock; Complete Time: 15:43 rn 08/29 14:29 Order name: Labs collected and sent; Complete Time: 15:44 rn 08/29 14:29 Order name: Suicide Screening ([place]); Complete Time: 15:44 rn 08/29 14:29 Order name: Urine Dipstick-Ancillary (obtain specimen); Complete Time: 15:44 rn 08/29 16:12 Order name: Diet Regular; Complete Time: 16:12 dh3 08/30 06:10 Order name: Diet Regular: psych; Complete Time: 06:10 ss 08/30 09:47 Order name: Diet Regular; Complete Time: 09:47 tw2 Administered Medications: 08/29 15:19 CANCELLED (Duplicate Order): Geodon (ziprasidone) 10 mg IM once rn 15:30 Drug: NS 0.9% 1000 ml Route: IV; Rate: 1000 ml; Site: right antecubital; bp 18:23 Follow up: IV Status: Completed infusion; IV Intake: 1000ml bp 15:30 Drug: Zofran (Ondansetron) 4 mg Route: IVP; Site: right antecubital; bp 18:24 Follow up: Response: No adverse reaction bp 15:30 Drug: HALdol (as decanoate) 5 mg Route: IM; Site: left deltoid; bp 18:24 Follow up: Response: Anxiety decreased bp Disposition: 08/30/20 13:27 Discharged to Home. Impression: Suicidal ideations, Paranoid schizophrenia. - Condition is Stable. - Discharge Instructions: Paranoia, Schizophrenia, Suicidal Feelings: How to Help Yourself, Stress and Stress Management. - Medication Reconciliation Form, Thank You Letter, Antibiotic Education, Prescription Opioid Use form. - Follow up: Private Physician; When: As needed; Reason: Recheck today's complaints, Re-evaluation by your physician. - Problem is an ongoing problem. - Symptoms have improved. Signatures: Dispatcher [employer] EDMS Miguel Abdi MD MD rn Hall, Patricia RN RN ph Anne Weems RN RN tw2 Brain Jackson RN RN bp Mahesh Warner MD MD 7 Corrections: (The following items were deleted from the chart) 15:19 15:19 Geodon (ziprasidone) 10 mg IM once ordered. rn rn 18:05 16:01 CORONAVIRUS+MR.LAB.BRZ ordered. EDMS EDMS 08/30 13:27 08/29 15:59 08/29/2020 15:59 Transfer ordered to [facility]. Diagnosis is Suicidal rn ideations; Paranoid schizophrenia. Reason for transfer: Higher level of care. Accepting physician is . Condition is Stable. Problem is an ongoing problem. Symptoms are unchanged. rn 08/30 13:49 13:27 08/30/2020 13:27 Discharged to Home. Impression: Suicidal ideations; Paranoid tw2 schizophrenia. Condition is Stable. Forms are Medication Reconciliation Form, Thank You Letter, Antibiotic Education, Prescription Opioid Use. Follow up: Private Physician; When: As needed; Reason: Recheck today's complaints, Re-evaluation by your physician. Problem is an ongoing problem. Symptoms have improved. rn
[2020-08-30 14:23] VITALS: O2SAT 95
[2020-08-30 14:25] VITALS: BP 131/72; TEMP 98.2
== END 2020-08-30 13:49 | disposition home or self-care (01) ==
LOC: ER 13:21
DX: F20.0 Paranoid schizophrenia (principal); F17.210 Nicotine dependence, cigarettes, uncomplicated; Z20.822 Contact with and (suspected) exposure to COVID-19; Z88.8 Allergy status to other drugs, medicaments and biological substances
CPT/HCPCS: 36415; 80048; 80076; 80307; 80320; 80329; 81003; 85025; 85610; 85730; 93005; 96361; 96372; 96374; 99284; J1630; J2405; J7030; U0003

== ENCOUNTER 2022-08-12 23:02 | Inpatient (IN) | payer SELFPAY ==
--- OUTSIDE RECORDS SUMMARY | 2022-08-12 23:07 | XMS REPORT | Continuity of Care Document ---
:1980 Author Organization [facility] t Address [address] [place] [address] Care Team Providers Name Role Phone UNKNOWN, REFFERING Primary Care Physician Unavailable JEANNINE HAMILTON Attending Clinician Unavailable Radhika Kimball MD Attending Clinician [phone] Jeannine Hamilton MD Attending Clinician RADHIKA KIMBALL Attending Clinician Unavailable HAWA CONTRERAS M.D., Loli SHAIKH Attending Clinician Unavailable RADHIKA KIMBALL Admitting Clinician Unavailable HAWA CONTRERAS M.D., Loli SHAIKH Admitting Clinician Unavailable Payers Payer Name Policy Type Policy Number Effective Date Expiration Date S ource Problems Condition Condition Condition Status Onset Resolution Last Treating Co mments Source Name Details Category Date Date Treatment Clinician Date Encephalop Encephalop Disease Active [facility] Allergies, Adverse Reactions, Alerts Allergy Allergy Status Severity Reaction(s) Onset Inactive Treating Comm ents Source Name Type Date Date Clinician BREXPIPR Allergy Active Itching [facility] 06-21 00:00: 00 Brexpipr Propensi Active [facility]ching [facility] adverse [facility]: Medical reaction 00 Center s Social History Social Habit Start Date Stop Date Quantity Comments Source History SDOH [facility] History of tobacco Smokes tobacco [facility] History SDOH 2022-06-25 2022-06-[address] [facility] Transport Med 00:00:00 00:00:[address] [facility] 2022-06-25 2022-06-[address] [facility] Housing Unable to 00:00:00 00:00:00 Medical Center Pay History [facility] 2022-06-25 2022-06-[address] [facility] Housing Places 00:00:00 00:00:00 Medical Ce nter Lived History [facility] 2022-06-25 2022-06-[address] [facility] Housing Homeless 00:00:00 00:00:00 Medical Center Last Year Alcohol Comment 2022-06-21 2022-06-21 Uncle at bedside [facility]:00 00:00:00 reported that he Medical Center drinks only socially Alcohol intake 2022-06-21 2022-06-21 Ex-drinker [facility] [place] [facility] 00:00:00 00:00:00 (finding) [facility] Sex Assigned At [birth year] [facility] 00:00:00 00:00:00 [facility] Smoking Status Start Date Stop Date Source Smokes tobacco daily 2022-06-21 00:00:00 [facility] Medications Ordered Filled Start Stop Current Ordering Indication Dosage Frequency Signature Comments Components Source Medication Medication Date Date Medication? Clinician (SIG) Name Name amLODIPine 2023- Yes 5mg QD Take [address] [facility] [address] (NORVASC) 5 4-11 04-10 tablet (5 Shelby kes MG tablet 00:00: 23:59 mg total) Me dical 00 :00 by mouth Center in the morning. divalproex 2022- No 500mg QD Take [address] [facility] (DEPAKOTE) 4-10 04-10 tablet [facility] 500 MG 24 13:47: 00:00 (500 mg Medi temitope hr tablet 51 :00 [facility] QUEtiapine 2022- No 100mg QD Take [address] [facility] (SEROquel) 4-10 04-10 tablet [facility] 100 MG 13:47: 00:00 (100 mg Medical tablet 51 :00 total) by Center mouth nightly. busPIRone 2022- No 15mg [id number] Take [address] [address] (BUSPAR) 15 4-10 04-10 [id number] tablet (15 [facility] MG tablet 13:47: 00:00 3D mg total) Me dical 51 :00 by mouth Center in the morning and 1 tablet (15 mg total) at noon and 1 tablet (15 mg total) in the evening. QUEtiapine 3-0 Yes 100mg QD Take [address] (SEROquel) 4-10 tablet [facility] 100 MG 00:00: (100 mg Medical tablet 00 total) by Center mouth nightly. busPIRone 2023-0 Yes 15mg [id number] Take [address] (BUSPAR) 15 4-10 [id number] tablet (15 [facility] MG tablet 00:00: 3D mg total) Med ical 00 by mouth Center in the morning and 1 tablet (15 mg total) at noon and 1 tablet (15 mg total) in the evening. divalproex 2022-0 Yes 500mg QD Take [address] [facility] (DEPAKOTE) 4-10 tablet [facility] 500 MG 24 00:00: (500 mg Medic al hr tablet 00 total) by Cente r mouth in the morning. hydrOXYzine 2022-0 2023- No 25mg Take [address] [facility] (ATARAX) 25 4-10 04-20 tablet (25 [facility] MG tablet 00:00: 23:59 mg total) Me dical 00 :00 by mouth Center every 6 (six) hours as needed for Anxiety for up to 10 days . Vital Signs Vital Name Observation Time Observation Value Comments Source WEIGHT 2022-07-01 06:00:00 84.55 kg WEIGHT 2022-07-01 04:44:00 84.505 kg WEIGHT 2022-06-29 06:00:00 82.872 kg WEIGHT 2022-06-26 06:00:00 81.647 kg HEIGHT 2022-06-24 07:05:00 177.8 cm WEIGHT 2022-06-23 06:00:00 86.2 kg WEIGHT 2022-06-22 06:00:00 86.2 kg WEIGHT 2022-06-21 12:49:00 86.183 kg WEIGHT 2022-07-01 06:00:00 84.55 kg WEIGHT 2022-07-01 04:44:00 84.505 kg WEIGHT 2022-06-29 06:00:00 82.872 kg WEIGHT 2022-06-26 06:00:00 81.647 kg HEIGHT 2022-06-24 07:05:00 177.8 cm WEIGHT 2022-06-23 06:00:00 86.2 kg WEIGHT 2022-06-22 06:00:00 86.2 kg WEIGHT 2022-06-21 12:49:00 86.183 kg WEIGHT 2022-07-01 06:00:00 84.55 kg WEIGHT 2022-07-01 04:44:00 84.505 kg WEIGHT 2022-06-29 06:00:00 82.872 kg WEIGHT 2022-06-26 06:00:00 81.647 kg HEIGHT 2022-06-24 07:05:00 177.8 cm WEIGHT 2022-06-23 06:00:00 86.2 kg WEIGHT 2022-06-22 06:00:00 86.2 kg WEIGHT 2022-06-21 12:49:00 86.183 kg Diastolic blood 2022-07-01 11:10:00 86 mm[Hg] [facility] Heart rate 2022-07-01 11:10:00 67 /min [facility] Body temperature 2022-07-01 11:10:00 36.61 Hortencia [facility] Respiratory rate 2022-07-01 11:10:00 18 /min [facility] Oxygen saturation in 2022-07-01 11:10:00 96 /min [facility] Arterial blood by Medical Ce nter Pulse oximetry Systolic blood 2022-07-01 11:10:00 146 mm[Hg] [facility] Body weight 2022-07-01 06:00:00 84.55 kg [facility] BMI 2022-07-01 06:00:00 26.75 kg/m2 [facility] Body height 2022-06-24 07:05:00 177.8 cm [facility] Procedures Procedure Date / Time Performed Performing Clinician Sour e BASIC METABOLIC PANEL 2022-07-01 04:50:00 Jeannine Hamilton [facility] CBC W/PLT COUNT & AUTO 2022-06-30 03:47:00 Ibgustavo [facility] CBC W/PLT COUNT & AUTO 2022-06-30 03:47:00 Joy [facility] BASIC METABOLIC PANEL 2022-06-29 06:10:00 Ibgustavo [facility] CBC W/PLT COUNT & AUTO 2022-06-28 05:27[facility] BASIC METABOLIC PANEL 2022-06-28 05:27:00 Ibgustavo [facility] CBC W/PLT COUNT & AUTO 2022-06-28 05:27:00 [facility] CBC W/PLT COUNT & AUTO 2022-06-27 05:18:00 Joy [facility] BASIC METABOLIC PANEL 2022-06-27 05:18:00 [facility] CBC W/PLT COUNT & AUTO 2022-06-27 05:18:00 Joy [facility] CARBAMAZEPINE 2022-06-25 11:19:00 Ruth Vasquez [facility] BASIC METABOLIC PANEL 2022-06-25 04:46:00 Ruth Vasquez [facility] CBC W/PLT COUNT & AUTO 2022-06-25 04:46:00 Ruth Vasquez [facility] VALPROIC ACID LEVEL, 2022-06-25 04:46:00 Chaz Estrada [facility] CBC W/PLT COUNT & AUTO 2022-06-25 04:46:00 Ruth Vasquez [facility] BASIC METABOLIC PANEL 2022-06-24 04:44:00 Daron Rios [facility] CBC W/PLT COUNT & AUTO 2022-06-24 04:44:00 Daron Rios [facility] CARBAMAZEPINE 2022-06-24 04:44:00 Joy Biswas [facility] CBC W/PLT COUNT & AUTO 2022-06-24 04:44:00 Gabriel Daron Hallmaja [facility] CBC W/PLT COUNT & AUTO 2022-06-23 05:59:00 Gabriel Daron Valentin [facility] PROCALCITONIN 2022-06-23 05:59:00 Marce Ordoñez [facility] COMPREHENSIVE METABOLIC 2022-06-23 05:59:00 Radhika Kimball [facility] CARBAMAZEPINE 2022-06-23 05:59:00 Sheikh Radhika [facility] CBC W/PLT COUNT & AUTO 2022-06-23 05:59:00 Gabriel Daron Valentin [facility] CARBAMAZEPINE 2022-06-22 20:39:00 Chaz Estrada [facility] CARBAMAZEPINE 2022-06-22 12:24:00 Chaz Estrada [facility] ECG 12-LEAD 2022-06-22 12:22:11 Chaz Estrada [facility] ECG 12-LEAD 2022-06-22 12:22:11 Unknown, Hl7 Doctor [facility] BASIC METABOLIC PANEL 2022-06-22 04:56:00 Daron Rios [facility] CBC W/PLT COUNT & AUTO 2022-06-22 04:56:00 Gabriel Daron Valentin [facility] CBC W/PLT COUNT & AUTO 2022-06-22 04:56:00 Daron Rios [facility] CARBAMAZEPINE 2022-06-22 04:54:00 Radhika Kimball [facility] STREP PNEUMONIAE ANTIGEN 2022-06-21 20:57:00 Daron Rios [facility] LEGIONELLA ANTIGEN, URINE 2022-06-21 20:56:00 Daron Rios [facility] BASIC METABOLIC PANEL 2022-06-21 19:54:00 Radhika Kimball [facility] CARBAMAZEPINE 2022-06-21 18:16:00 Chaz Estrada [facility] ECG 12-LEAD 2022-06-21 18:07:12 Chaz Estrada [facility] ECG 12-LEAD 2022-06-21 18:07:12 Unknown, Hl7 Doctor [facility] LACTIC ACID, VENOUS 2022-06-21 17:17:00 AchDaron hicksmaja [facility] XR CHEST 1 VIEW PORTABLE 2022-06-21 16:23:[address] [facility] / BEDSIDE [facility] BLOOD CULTURE 2022-06-21 15:28[facility] 2022-06-21 15:28:00 [facility] 2022-06-21 15:28:00 [facility] COMPREHENSIVE METABOLIC 2022-06-21 14:19:[address] [facility] MAGNESIUM 2022-06-21 14:19:00 Chaz Estrada [facility] PHOSPHORUS 2022-06-21 14:19:00 [facility] LACT[facility], VENOUS 2022-06-21 14:19:00 Chaz Estrada [facility] POCT-GLUCOSE METER 2022-06-21 12:49:[address] [facility] EKG-SCANNED 2022-06-21 00:00:00 ProviderMeri [facility] Plan of Care Planned Activity Planned Date Details Comments Source Future Scheduled 2023-06-[address] [facility] Test 00:00[facility]00 [facility] r Screening (12+) [code = Tobacco Cessation Counseling and Screening (12+)] Future Scheduled 2022-11-[address] [facility] Test 00:00:00 (Season Ended) [code = [facility] INFLUENZA VACCINE (Season Ended)] Future Scheduled 2022-03-[address] [facility] Test 00:00:00 (12+) [code = Medical Center DEPRESSION SCREENING (12+)] Future Scheduled [address] [facility] 00:[facility]00 (procedure) [code = Medical Center [id number]] Future Scheduled 2000 DTAP/TDAP/TD VACCINES [facility] 00:00:00 (1 - Tdap) [code = Medical C enter DTAP/TDAP/TD VACCINES (1 - Tdap)] Future Scheduled 1999 HEPATITIS C SCREENING [facility] 00:00:00 [code = HEPATITIS C Medical Center SCREENING] Future Scheduled [address] [facility] Test 00:00:00 0-64 YRS (1 - PCV) Medical C enter [code = PNEUMOCOCCAL VACCINE 0-64 YRS (1 - PCV)] Future Scheduled 1981 COVID-19 VACCINE (#1) [facility] Test 00:00:00 [code = COVID-[address] VACCINE (#1)] Encounters Start End Encounter Admission Attending Care Care Encounter Source Date/Time Date/Time Type Type Clinicians Facility Department ID 2022-06-26 Outpatient [facility] [id number] [place] 23:25:[id number] [place] [address] 2022-06-25 Outpatient [facility] [id number] [place] 17:05:[id number] [place] [address] 2022-06-24 Outpatient [facility] [id number] [place] 22:27:19 [id number] [facility] 2022-02-08 Inpatient TEXANA TEXANA [id number] [place] 15:14:51 [id number] [facility] 2021-10-11 Inpatient TEXANA TEXANA [id number] [place] 12:36:37 [id number] [facility] 2021-09-18 Inpatient TEXANA TEXANA [id number] [place] 11:21:56 [id number] [facility] 2022-06-21 2022-07-01 Inpatient ER ANAND HAMILTON [facility] [id number] [facility] 12:04:00 13:49:00 [facility] 2022-06-21 2022-07-01 [facility] Radhika Kimball [facility] [id number] 12:04:00 13:49:00 [facility] 2022-06-24 Travel [facility] [id number] [facility] 00:00:00 00:00:00 [facility] 2022-06-21 2022-06-21 Orders [facility] [id number] [facility] 00:00:00 00:00:00 Only [facility] Results Test Description Test Time Test Comments Results Result Comments Source BASIC METABOLIC PANEL 2022-07-01 05:31:30 Test Item Value Reference Range Interpretation Comme nts SODIUM (BEAKER) (test 139 meq/L 135-148 code = 381) POTASSIUM (BEAKER) 3.9 meq/L 3.6-5.5 (test code = 379) CHLORIDE (BEAKER) (test 106 meq/L 98-106 code = 382) CO2 (BEAKER) (test code 20 meq/L 20-29 = 355) BLOOD UREA NITROGEN 10 mg/dL 10-26 (BEAKER) (test code = 354) CREATININE (BEAKER) 0.77 mg/dL 0.50-1.20 (test code = 358) GLUCOSE RANDOM (BEAKER) 113 mg/dL 70-110 H (test code = 652) CALCIUM (BEAKER) (test 9.0 mg/dL 8.5-10.5 code = 697) EGFR (BEAKER) (test 116 mL/min/1.73 sq I nterpretation of eGFR values code = 1092) m Stage Descripti on Result G1 Normal or high >=90 G2 Mildly decreased 60-89 G3a Mildly to moderately 45-5 9 G3b Moderately to severely 30- 44 G4 Severly decreased 15-29 G5 Kidney failure <15Repo rted eGFR is based on the CK D-EPI 2020 equation that d oes not use a race coefficien tEstimated GFR is not as accurate as Creatinine Clearance in pr edicting glomerular filt ration rate. Estimated GFR i s not applicable for dialysis anton boothe Geophysical Data Technician ID - CHOPZCBC W/PLT COUNT & AUTO [id number] 04:02:54 Test Item Value Reference Range Interpretation Comments WHITE BLOOD CELL COUNT (BEAKER) 7.8 K/ L 4.0-10.0 (test code = 775) RED BLOOD CELL COUNT (BEAKER) 5.08 M/ L 4.20-5.80 (test code = 761) HEMOGLOBIN (BEAKER) (test code = 15.8 GM/DL 13.0-16.8 410) HEMATOCRIT (BEAKER) (test code = 46.3 % 36.0-50.0 411) MEAN CORPUSCULAR VOLUME (BEAKER) 91 fL 82-99 (test code = 753) MEAN CORPUSCULAR HEMOGLOBIN 31.1 pg 27.0-33.0 (BEAKER) (test code = 751) MEAN CORPUSCULAR HEMOGLOBIN CONC 34.1 GM/DL 32.0-36.0 (BEAKER) (test code = 752) RED CELL DISTRIBUTION WIDTH 12.4 % 12.0-15.0 (BEAKER) (test code = 412) PLATELET COUNT (BEAKER) (test 272 K/CU MM 150-430 code = 756) MEAN PLATELET VOLUME (BEAKER) 9.9 fL 6.0-11.5 (test code = 754) NUCLEATED RED BLOOD CELLS 0 /100 WBC 0-0 (BEAKER) (test code = 413) NEUTROPHILS RELATIVE PERCENT 58 % (BEAKER) (test code = 429) LYMPHOCYTES RELATIVE PERCENT 28 % (BEAKER) (test code = 430) MONOCYTES RELATIVE PERCENT 10 % (BEAKER) (test code = 431) EOSINOPHILS RELATIVE PERCENT 3 % (BEAKER) (test code = 432) BASOPHILS RELATIVE PERCENT 1 % (BEAKER) (test code = 437) NEUTROPHILS ABSOLUTE COUNT 4.56 K/ L 1.80-8.00 (BEAKER) (test code = 670) LYMPHOCYTES ABSOLUTE COUNT 2.18 K/ L 1.48-4.50 (BEAKER) (test code = 414) MONOCYTES ABSOLUTE COUNT (BEAKER) 0.76 K/ L 0.00-1.30 (test code = 415) EOSINOPHILS ABSOLUTE COUNT 0.22 K/ L 0.00-0.50 (BEAKER) (test code = 416) BASOPHILS ABSOLUTE COUNT (BEAKER) 0.06 K/ L 0.00-0.20 (test code = 417) IMMATURE GRANULOCYTES-RELATIVE 0.40 % 0.00-0.00 H PERCENT (BEAKER) (test code = 2801) BASIC METABOLIC [id number] 06:36:58 Test Item Value Reference Range Interpretation Comments SODIUM (BEAKER) 138 meq/L 135-148 (test code = 381) POTASSIUM 4.6 meq/L 3.6-5.5 (BEAKER) (test code = 379) CHLORIDE (BEAKER) 106 meq/L 98-106 (test code = 382) CO2 (BEAKER) 21 meq/L 20-29 (test code = 355) BLOOD UREA 8 mg/dL 10-26 L NITROGEN (BEAKER) (test code = 354) CREATININE 0.71 mg/dL 0.50-1.20 (BEAKER) (test code = 358) GLUCOSE RANDOM 101 mg/dL 70-110 (BEAKER) (test code = 652) CALCIUM (BEAKER) 9.4 mg/dL 8.5-10.5 (test code = 697) EGFR (BEAKER) 118 Interpretatio n of eGFR (test code = mL/min/1.73 values Stage De scription 1092) sq m Result G1 Fifi l or high >=90 G2 Mildly decreased 60-89 G3a Mildl y to moderately 45-5 9 G3b Moderately to s everely 30-44 G4 Severl y decreased 15-29 G5 Kidne y failure <15Reported eGF R is based on the CKD-EPI 2020 equation that d oes not use a race coefficientEsti mated GFR is not as accur ate as Creatinine Mare anton in predicting glom erular filtration rate . Estimated GFR is not appl icable for dialysis patien ts Geophysical Data Technician ID [facility] METABOLIC [id number] 06:07:26 Test Item Value Reference Range Interpretation Comments SODIUM (BEAKER) 138 meq/L 135-148 (test code = 381) POTASSIUM 4.8 meq/L 3.6-5.5 (BEAKER) (test code = 379) CHLORIDE (BEAKER) 107 meq/L 98-106 H (test code = 382) CO2 (BEAKER) 18 meq/L 20-29 L (test code = 355) BLOOD UREA 9 mg/dL 10-26 L NITROGEN (BEAKER) (test code = 354) CREATININE 0.72 mg/dL 0.50-1.20 (BEAKER) (test code = 358) GLUCOSE RANDOM 87 mg/dL 70-110 (BEAKER) (test code = 652) CALCIUM (BEAKER) 9.6 mg/dL 8.5-10.5 (test code = 697) EGFR (BEAKER) 118 Interpretatio n of eGFR (test code = mL/min/1.73 values Stage De scription 1092) sq m Result G1 Fifi l or high >=90 G2 Mildly decreased 60-89 G3a Mildl y to moderately 45-5 9 G3b Moderately to s everely 30-44 G4 Severl y decreased 15-29 G5 Kidney failure <15Reported eGF R is based on the CKD-EPI 2020 equation that d oes not use a race coefficientEsti mated GFR is not as accur ate as Creatinine Mare anton in predicting glom erular filtration rate . Estimated GFR is not appl icable for dialysis patien ts Geophysical Data Technician ID - Luz Maria TCBC W/PLT COUNT & AUTO [id number] 05:37:14 Test Item Value Reference Range Interpretation Comments WHITE BLOOD CELL COUNT (BEAKER) 9.4 K/ L 4.0-10.0 (test code = 775) RED BLOOD CELL COUNT (BEAKER) 5.34 M/ L 4.20-5.80 (test code = 761) HEMOGLOBIN (BEAKER) (test code = 16.8 GM/DL 13.0-16.8 410) HEMATOCRIT (BEAKER) (test code = 50.0 % 36.0-50.0 411) MEAN CORPUSCULAR VOLUME (BEAKER) 94 fL 82-99 (test code = 753) MEAN CORPUSCULAR HEMOGLOBIN 31.5 pg 27.0-33.0 (BEAKER) (test code = 751) MEAN CORPUSCULAR HEMOGLOBIN CONC 33.6 GM/DL 32.0-36.0 (BEAKER) (test code = 752) RED CELL DISTRIBUTION WIDTH 13.1 % 12.0-15.0 (BEAKER) (test code = 412) PLATELET COUNT (BEAKER) (test 258 K/CU MM 150-430 code = 756) MEAN PLATELET VOLUME (BEAKER) 10.3 fL 6.0-11.5 (test code = 754) NUCLEATED RED BLOOD CELLS 0 /100 WBC 0-0 (BEAKER) (test code = 413) NEUTROPHILS RELATIVE PERCENT 63 % (BEAKER) (test code = 429) LYMPHOCYTES RELATIVE PERCENT 22 % (BEAKER) (test code = 430) MONOCYTES RELATIVE PERCENT 11 % (BEAKER) (test code = 431) EOSINOPHILS RELATIVE PERCENT 3 % (BEAKER) (test code = 432) BASOPHILS RELATIVE PERCENT 1 % (BEAKER) (test code = 437) NEUTROPHILS ABSOLUTE COUNT 5.89 K/ L 1.80-8.00 (BEAKER) (test code = 670) LYMPHOCYTES ABSOLUTE COUNT 2.04 K/ L 1.48-4.50 (BEAKER) (test code = 414) MONOCYTES ABSOLUTE COUNT (BEAKER) 1.01 K/ L 0.00-1.30 (test code = 415) EOSINOPHILS ABSOLUTE COUNT 0.24 K/ L 0.00-0.50 (BEAKER) (test code = 416) BASOPHILS ABSOLUTE COUNT (BEAKER) 0.11 K/ L 0.00-0.20 (test code = 417) IMMATURE GRANULOCYTES-RELATIVE 0.90 % 0.00-0.00 H PERCENT (BEAKER) (test code = 2801) BASIC METABOLIC [id number] 05:48:52 Test Item Value Reference Range Interpretation Comments SODIUM (BEAKER) 139 meq/L 135-148 (test code = 381) POTASSIUM 4.4 meq/L 3.6-5.5 (BEAKER) (test code = 379) CHLORIDE (BEAKER) 108 meq/L 98-106 H (test code = 382) CO2 (BEAKER) 21 meq/L 20-29 (test code = 355) BLOOD UREA 5 mg/dL 10-26 L NITROGEN (BEAKER) (test code = 354) CREATININE 0.62 mg/dL 0.50-1.20 (BEAKER) (test code = 358) GLUCOSE RANDOM 95 mg/dL 70-110 (BEAKER) (test code = 652) CALCIUM (BEAKER) 9.5 mg/dL 8.5-10.5 (test code = 697) EGFR (BEAKER) 122 Interpretatio n of eGFR (test code = mL/min/1.73 values Stage De scription 1092) sq m Result G1 Fifi l or high >=90 G2 Mildly decreased 60-89 G3a Mildl y to moderately 45-5 9 G3b Moderately to s everely 30-44 G4 Severl y decreased 15-29 G5 Kidney failure <15Reported eGF R is based on the CKD-EPI 2020 equation that d oes not use a race coefficientEsti mated GFR is not as accur ate as Creatinine Mare anton in predicting glom erular filtration rate . Estimated GFR is not appl icable for dialysis patien ts Geophysical Data Technician ID - CHOPZCBC W/PLT COUNT & AUTO [id number] 05:28:05 Test Item Value Reference Range Interpretation Comments WHITE BLOOD CELL COUNT (BEAKER) 8.5 K/ L 4.0-10.0 (test code = 775) RED BLOOD CELL COUNT (BEAKER) 5.24 M/ L 4.20-5.80 (test code = 761) HEMOGLOBIN (BEAKER) (test code = 16.1 GM/DL 13.0-16.8 410) HEMATOCRIT (BEAKER) (test code = 48.1 % 36.0-50.0 411) MEAN CORPUSCULAR VOLUME (BEAKER) 92 fL 82-99 (test code = 753) MEAN CORPUSCULAR HEMOGLOBIN 30.7 pg 27.0-33.0 (BEAKER) (test code = 751) MEAN CORPUSCULAR HEMOGLOBIN CONC 33.5 GM/DL 32.0-36.0 (BEAKER) (test code = 752) RED CELL DISTRIBUTION WIDTH 12.7 % 12.0-15.0 (BEAKER) (test code = 412) PLATELET COUNT (BEAKER) (test 259 K/CU MM 150-430 code = 756) MEAN PLATELET VOLUME (BEAKER) 10.4 fL 6.0-11.5 (test code = 754) NUCLEATED RED BLOOD CELLS 0 /100 WBC 0-0 (BEAKER) (test code = 413) NEUTROPHILS RELATIVE PERCENT 64 % (BEAKER) (test code = 429) LYMPHOCYTES RELATIVE PERCENT 23 % (BEAKER) (test code = 430) MONOCYTES RELATIVE PERCENT 9 % (BEAKER) (test code = 431) EOSINOPHILS RELATIVE PERCENT 3 % (BEAKER) (test code = 432) BASOPHILS RELATIVE PERCENT 1 % (BEAKER) (test code = 437) NEUTROPHILS ABSOLUTE COUNT 5.43 K/ L 1.80-8.00 (BEAKER) (test code = 670) LYMPHOCYTES ABSOLUTE COUNT 1.98 K/ L 1.48-4.50 (BEAKER) (test code = 414) MONOCYTES ABSOLUTE COUNT (BEAKER) 0.74 K/ L 0.00-1.30 (test code = 415) EOSINOPHILS ABSOLUTE COUNT 0.27 K/ L 0.00-0.50 (BEAKER) (test code = 416) BASOPHILS ABSOLUTE COUNT (BEAKER) 0.05 K/ L 0.00-0.20 (test code = 417) IMMATURE GRANULOCYTES-RELATIVE 0.50 % 0.00-0.00 H PERCENT (BEAKER) (test code = 2801) BLOOD [id number] 23:00:38 Test Item Value Reference Range Interpretation Comments CULTURE (BEAKER) (test No growth in 5 days code = 1095) The specimen volume collected for this blood culture was below the optimum (10 mL per bottle or 20 mL total). Use of lower volumes may adversely affect recovery and/or detection times of some organisms.BLOOD [id number] 23:00:38 Test Item Value Reference Range Interpretation Comments CULTURE (BEAKER) (test No growth in 5 days code = 1095) The specimen volume collected for this blood culture was below the optimum (10 mL per bottle or 20 mL total). Use of lower volumes may adversely affect recovery and/or detection times of some organisms.[id number] 17:57:07 Test Item Value Reference Range Interpretation Comments CARBAMAZEPINE LEVEL (BEAKER) (test 5.0 ug/mL 4.0-12.0 code = 696) Geophysical Data Technician ID - BSVALPROIC ACID LEVEL, [id number] 16:16:29 Test Item Value Reference Range Interpretation Comments VALPROIC ACID TOTAL (BEAKER) (test 28 ug/mL 50-100 L code = 924) Therapeutic range for some clinical conditions may be >100 ug/mLBASIC METABOLIC [id number] 05:17:45 Test Item Value Reference Range Interpretation Comments SODIUM (BEAKER) 141 meq/L 135-148 (test code = 381) POTASSIUM 3.6 meq/L 3.6-5.5 (BEAKER) (test code = 379) CHLORIDE (BEAKER) 108 meq/L 98-106 H (test code = 382) CO2 (BEAKER) 23 meq/L 20-29 (test code = 355) BLOOD UREA 7 mg/dL 10-26 L NITROGEN (BEAKER) (test code = 354) CREATININE 0.69 mg/dL 0.50-1.20 (BEAKER) (test code = 358) GLUCOSE RANDOM 123 mg/dL 70-110 H (BEAKER) (test code = 652) CALCIUM (BEAKER) 8.6 mg/dL 8.5-10.5 (test code = 697) EGFR (BEAKER) 119 Interpretatio n of eGFR (test code = mL/min/1.73 values Stage De scription 1092) sq m Result G1 Fifi l or high >=90 G2 Mildly decreased 60-89 G3a Mildl y to moderately 45-5 9 G3b Moderately to s everely 30-44 G4 Sever ly decreased 15-29 G5 Kidney failure <15Repo rted eGFR is based on the CKD-EPI 1 equation t hat does not use a race coefficientEsti mated GFR is not as accur ate as Creatinine Mare walton in predicting glom erular filtration rate . Estimated GFR is not appl icable for dialysis patien ts Geophysical Data Technician ID - PURACBC W/PLT COUNT & AUTO [id number] 04:58:53 Test Item Value Reference Range Interpretation Comments WHITE BLOOD CELL COUNT (BEAKER) 8.1 K/ L 4.0-10.0 (test code = 775) RED BLOOD CELL COUNT (BEAKER) 4.53 M/ L 4.20-5.80 (test code = 761) HEMOGLOBIN (BEAKER) (test code = 14.1 GM/DL 13.0-16.8 410) HEMATOCRIT (BEAKER) (test code = 41.3 % 36.0-50.0 411) MEAN CORPUSCULAR VOLUME (BEAKER) 91 fL 82-99 (test code = 753) MEAN CORPUSCULAR HEMOGLOBIN 31.1 pg 27.0-33.0 (BEAKER) (test code = 751) MEAN CORPUSCULAR HEMOGLOBIN CONC 34.1 GM/DL 32.0-36.0 (BEAKER) (test code = 752) RED CELL DISTRIBUTION WIDTH 12.3 % 12.0-15.0 (BEAKER) (test code = 412) PLATELET COUNT (BEAKER) (test 193 K/CU MM 150-430 code = 756) MEAN PLATELET VOLUME (BEAKER) 10.5 fL 6.0-11.5 (test code = 754) NUCLEATED RED BLOOD CELLS 0 /100 WBC 0-0 (BEAKER) (test code = 413) NEUTROPHILS RELATIVE PERCENT 66 % (BEAKER) (test code = 429) LYMPHOCYTES RELATIVE PERCENT 22 % (BEAKER) (test code = 430) MONOCYTES RELATIVE PERCENT 8 % (BEAKER) (test code = 431) EOSINOPHILS RELATIVE PERCENT 3 % (BEAKER) (test code = 432) BASOPHILS RELATIVE PERCENT 1 % (BEAKER) (test code = 437) NEUTROPHILS ABSOLUTE COUNT 5.34 K/ L 1.80-8.00 (BEAKER) (test code = 670) LYMPHOCYTES ABSOLUTE COUNT 1.79 K/ L 1.48-4.50 (BEAKER) (test code = 414) MONOCYTES ABSOLUTE COUNT (BEAKER) 0.61 K/ L 0.00-1.30 (test code = 415) EOSINOPHILS ABSOLUTE COUNT 0.23 K/ L 0.00-0.50 (BEAKER) (test code = 416) BASOPHILS ABSOLUTE COUNT (BEAKER) 0.05 K/ L 0.00-0.20 (test code = 417) IMMATURE GRANULOCYTES-RELATIVE 0.40 % 0.00-0.00 H PERCENT (BEAKER) (test code = 2801) [id number] 13:34:42 Test Item Value Reference Range Interpretation Comments CARBAMAZEPINE LEVEL (BEAKER) (test 14.9 ug/mL 4.0-12.0 H code = 696) Geophysical Data Technician ID - MARCOOperator ID - MARCOBASIC METABOLIC [id number] 05:11:16 Test Item Value Reference Range Interpretation Comments SODIUM (BEAKER) 138 meq/L 135-148 (test code = 381) POTASSIUM 3.6 meq/L 3.6-5.5 (BEAKER) (test code = 379) CHLORIDE (BEAKER) 107 meq/L 98-106 H (test code = 382) CO2 (BEAKER) 20 meq/L 20-29 (test code = 355) BLOOD UREA 3 mg/dL 10-26 L NITROGEN (BEAKER) (test code = 354) CREATININE 0.64 mg/dL 0.50-1.20 (BEAKER) (test code = 358) GLUCOSE RANDOM 88 mg/dL 70-110 (BEAKER) (test code = 652) CALCIUM (BEAKER) 8.4 mg/dL 8.5-10.5 L (test code = 697) EGFR (BEAKER) 121 Interpretatio n of eGFR (test code = mL/min/1.73 values Stage De scription 1092) sq m Result G1 Fifi l or high >=90 G2 Mildly decreased 60-89 G3a Mildl y to moderately 45-5 9 G3b Moderately to s everely 30-44 G4 Severl y decreased 15-29 G5 Kidne y failure <15Reported eGF R is based on the CKD-EPI 2020 equation that d oes not use a race coefficientEsti mated GFR is not as accur ate as Creatinine Mare walton in predicting glom erular filtration rate . Estimated GFR is not appl icable for dialysis patien ts Geophysical Data Technician ID - [id number] W/PLT COUNT & AUTO [id number] 04:50:57 Test Item Value Reference Range Interpretation Comments WHITE BLOOD CELL COUNT (BEAKER) 7.3 K/ L 4.0-10.0 (test code = 775) RED BLOOD CELL COUNT (BEAKER) 4.49 M/ L 4.20-5.80 (test code = 761) HEMOGLOBIN (BEAKER) (test code = 14.0 GM/DL 13.0-16.8 410) HEMATOCRIT (BEAKER) (test code = 41.2 % 36.0-50.0 411) MEAN CORPUSCULAR VOLUME (BEAKER) 92 fL 82-99 (test code = 753) MEAN CORPUSCULAR HEMOGLOBIN 31.2 pg 27.0-33.0 (BEAKER) (test code = 751) MEAN CORPUSCULAR HEMOGLOBIN CONC 34.0 GM/DL 32.0-36.0 (BEAKER) (test code = 752) RED CELL DISTRIBUTION WIDTH 12.5 % 12.0-15.0 (BEAKER) (test code = 412) PLATELET COUNT (BEAKER) (test 165 K/CU MM 150-430 code = 756) MEAN PLATELET VOLUME (BEAKER) 10.3 fL 6.0-11.5 (test code = 754) NUCLEATED RED BLOOD CELLS 0 /100 WBC 0-0 (BEAKER) (test code = 413) NEUTROPHILS RELATIVE PERCENT 62 % (BEAKER) (test code = 429) LYMPHOCYTES RELATIVE PERCENT 26 % (BEAKER) (test code = 430) MONOCYTES RELATIVE PERCENT 8 % (BEAKER) (test code = 431) EOSINOPHILS RELATIVE PERCENT 3 % (BEAKER) (test code = 432) BASOPHILS RELATIVE PERCENT 1 % (BEAKER) (test code = 437) NEUTROPHILS ABSOLUTE COUNT 4.51 K/ L 1.80-8.00 (BEAKER) (test code = 670) LYMPHOCYTES ABSOLUTE COUNT 1.89 K/ L 1.48-4.50 (BEAKER) (test code = 414) MONOCYTES ABSOLUTE COUNT (BEAKER) 0.59 K/ L 0.00-1.30 (test code = 415) EOSINOPHILS ABSOLUTE COUNT 0.18 K/ L 0.00-0.50 (BEAKER) (test code = 416) BASOPHILS ABSOLUTE COUNT (BEAKER) 0.06 K/ L 0.00-0.20 (test code = 417) IMMATURE GRANULOCYTES-RELATIVE 0.40 % 0.00-0.00 H PERCENT (BEAKER) (test code = 2801) [id number] 15:31:07 Test Item Value Reference Range Interpretation Comments CARBAMAZEPINE LEVEL (BEAKER) (test 19.8 ug/mL 4.0-12.0 HH code = 696) Geophysical Data Technician ID - MARCOOperator ID - [id number] 15:30:51 Test Item Value Reference Range Interpretation Comments CARBAMAZEPINE LEVEL (BEAKER) (test 21.8 ug/mL 4.0-12.0 HH code = 696) Geophysical Data Technician ID - MARCOOperator ID - [id number] 10:09:57 Test Item Value Reference Range Interpretation Comments PROCALCITONIN (BEAKER) (test code = < ng/mL <0.05 3036) SEPSIS RISK (ng/mL)Low: 0.05-0.50Intermediate: 0.51-2.00High: >=2.01 COMPREHENSIVE METABOLIC [id number] 06:31:44 Test Item Value Reference Range Interpretation Comments TOTAL PROTEIN 5.8 gm/dL 6.0-8.5 L Specimen sligh tly (BEAKER) (test hemolyzed code = 770) ALBUMIN (BEAKER) 3.1 g/dL 3.5-5.0 L Specimen sl ightly (test code = 1145) hemolyzed ALKALINE 72 U/L 30-115 PHOSPHATASE (BEAKER) (test code = 346) BILIRUBIN TOTAL 0.3 mg/dL 0.1-1.2 Specimen sli ghtly (BEAKER) (test hemolyzed code = 377) SODIUM (BEAKER) 143 meq/L 135-148 (test code = 381) POTASSIUM (BEAKER) 3.6 meq/L 3.6-5.5 Specimen slightly (test code = 379) hemolyzed CHLORIDE (BEAKER) 108 meq/L 98-106 H (test code = 382) CO2 (BEAKER) (test 25 meq/L 20-29 code = 355) BLOOD UREA 4 mg/dL 10-26 L NITROGEN (BEAKER) (test code = 354) CREATININE 0.74 mg/dL 0.50-1.20 Specimen slight ly (BEAKER) (test hemolyzed code = 358) GLUCOSE RANDOM 92 mg/dL 70-110 (BEAKER) (test code = 652) CALCIUM (BEAKER) 8.3 mg/dL 8.5-10.5 L (test code = 697) AST (SGOT) 13 U/L 5-40 Specimen slight ly (BEAKER) (test hemolyzed code = 353) ALT (SGPT) 11 U/L 5-50 Specimen slight ly (BEAKER) (test hemolyzed code = 347) EGFR (BEAKER) 117 Interpretatio n of eGFR (test code = 1092) mL/min/1.[address] age Description sq m Result G1 Fifi l or high >=90 G2 Mildly decreased 60-89 G3a Mildl y to moderately 45-5 9 G3b Moderately to s everely 30-44 G4 Severl y decreased 15-29 G5 Kidney failure <15Reported eGF R is based on the CKD-EPI 2020 equation that d oes not use a race coefficientEsti mated GFR is not as accur ate as Creatinine Mare anton in predicting glom erular filtration rate . Estimated GFR is not appl icable for dialysis patien ts Geophysical Data Technician ID - PURACBC W/PLT COUNT & AUTO [id number] 06:18:41 Test Item Value Reference Range Interpretation Comments WHITE BLOOD CELL COUNT (BEAKER) 6.7 K/ L 4.0-10.0 (test code = 775) RED BLOOD CELL COUNT (BEAKER) 4.29 M/ L 4.20-5.80 (test code = 761) HEMOGLOBIN (BEAKER) (test code = 13.3 GM/DL 13.0-16.8 410) HEMATOCRIT (BEAKER) (test code = 39.2 % 36.0-50.0 411) MEAN CORPUSCULAR VOLUME (BEAKER) 91 fL 82-99 (test code = 753) MEAN CORPUSCULAR HEMOGLOBIN 31.0 pg 27.0-33.0 (BEAKER) (test code = 751) MEAN CORPUSCULAR HEMOGLOBIN CONC 33.9 GM/DL 32.0-36.0 (BEAKER) (test code = 752) RED CELL DISTRIBUTION WIDTH 12.5 % 12.0-15.0 (BEAKER) (test code = 412) PLATELET COUNT (BEAKER) (test 187 K/CU MM 150-430 code = 756) MEAN PLATELET VOLUME (BEAKER) 10.5 fL 6.0-11.5 (test code = 754) NUCLEATED RED BLOOD CELLS 0 /100 WBC 0-0 (BEAKER) (test code = 413) NEUTROPHILS RELATIVE PERCENT 62 % (BEAKER) (test code = 429) LYMPHOCYTES RELATIVE PERCENT 30 % (BEAKER) (test code = 430) MONOCYTES RELATIVE PERCENT 7 % (BEAKER) (test code = 431) EOSINOPHILS RELATIVE PERCENT 2 % (BEAKER) (test code = 432) BASOPHILS RELATIVE PERCENT 0 % (BEAKER) (test code = 437) NEUTROPHILS ABSOLUTE COUNT 4.11 K/ L 1.80-8.00 (BEAKER) (test code = 670) LYMPHOCYTES ABSOLUTE COUNT 1.99 K/ L 1.48-4.50 (BEAKER) (test code = 414) MONOCYTES ABSOLUTE COUNT (BEAKER) 0.45 K/ L 0.00-1.30 (test code = 415) EOSINOPHILS ABSOLUTE COUNT 0.10 K/ L 0.00-0.50 (BEAKER) (test code = 416) BASOPHILS ABSOLUTE COUNT (BEAKER) 0.02 K/ L 0.00-0.20 (test code = 417) IMMATURE GRANULOCYTES-RELATIVE 0.10 % 0.00-0.00 H PERCENT (BEAKER) (test code = 2801) [id number] 19:46:11 Test Item Value Reference Range Interpretation Comments CARBAMAZEPINE LEVEL (BEAKER) (test 16.9 ug/mL 4.0-12.0 HH code = 696) Geophysical Data Technician ID - MMOperator ID - [id number] 17:03:40 Test Item Value Reference Range Interpretation Comments CARBAMAZEPINE LEVEL > ug/mL 4.0-12.0 HH >60This is a (BEAKER) (test code = [facility] result. 696) Previous result was >15.0 ug/mL on 06/22/2022 at 163 0 CDT Geophysical Data Technician ID - MMLegilyndonlla antigen, [id number] 14:07:45 Test Item Value Reference Range Interpretation Comments Legionella Urine Negative - see Negative Negative for L. Antigen (test code = comment pneumop oksana 37794-1) serogroup 1 antigen, sugges ting no recent or current infecti on with this serogroup. Legionellosis cannot be ruled out since other serogroups and species may cau se disease. Lab Interpretation Normal (test code = 12728-3) [facility], [id number] 14:07:45 Test Item Value Reference Range Interpretation Comments L. PNEUMOPHILA Negative - see Negative Negative fo r L. SEROGP 1 UR AG comment pneumophila (BEAKER) (test code serogrou p 1 antigen, = 1156) suggesting no r ecent or current infe ction with this serog roup. Legionellosis c annot be ruled out si nce other serogroup s and species may cau se disease. STREP PNEUMONIAE [id number] 14:05:28 Test Item Value Reference Range Interpretation Comments STREP PNEUMONIAE Presumptive negative Presumptive negative ANTIGEN (BEAKER) for pneumococcal for pneumococcal (test code = 1615) pneumonia - see pneumonia - see comment commen Presumptive negative for pneumococcal pneumonia, suggesting no current or recent pneumococcal infection. Infection due to S. pneumoniae cannot be ruled out since the antigen present in the sample may be below the detection limit of the test. CBC W/PLT COUNT & AUTO [id number] 05:49:29 Test Item Value Reference Range Interpretation Comments WHITE BLOOD CELL COUNT (BEAKER) 5.4 K/ L 4.0-10.0 (test code = 775) RED BLOOD CELL COUNT (BEAKER) 4.19 M/ L 4.20-5.80 L (test code = 761) HEMOGLOBIN (BEAKER) (test code = 13.0 GM/DL 13.0-16.8 410) HEMATOCRIT (BEAKER) (test code = 38.5 % 36.0-50.0 411) MEAN CORPUSCULAR VOLUME (BEAKER) 92 fL 82-99 (test code = 753) MEAN CORPUSCULAR HEMOGLOBIN 31.0 pg 27.0-33.0 (BEAKER) (test code = 751) MEAN CORPUSCULAR HEMOGLOBIN CONC 33.8 GM/DL 32.0-36.0 (BEAKER) (test code = 752) RED CELL DISTRIBUTION WIDTH 12.5 % 12.0-15.0 (BEAKER) (test code = 412) PLATELET COUNT (BEAKER) (test 172 K/CU MM 150-430 code = 756) MEAN PLATELET VOLUME (BEAKER) 10.6 fL 6.0-11.5 (test code = 754) NUCLEATED RED BLOOD CELLS 0 /100 WBC 0-0 (BEAKER) (test code = 413) NEUTROPHILS RELATIVE PERCENT 62 % (BEAKER) (test code = 429) LYMPHOCYTES RELATIVE PERCENT 29 % (BEAKER) (test code = 430) MONOCYTES RELATIVE PERCENT 8 % (BEAKER) (test code = 431) EOSINOPHILS RELATIVE PERCENT 1 % (BEAKER) (test code = 432) BASOPHILS RELATIVE PERCENT 0 % (BEAKER) (test code = 437) NEUTROPHILS ABSOLUTE COUNT 3.34 K/ L 1.80-8.00 (BEAKER) (test code = 670) LYMPHOCYTES ABSOLUTE COUNT 1.56 K/ L 1.48-4.50 (BEAKER) (test code = 414) MONOCYTES ABSOLUTE COUNT (BEAKER) 0.41 K/ L 0.00-1.30 (test code = 415) EOSINOPHILS ABSOLUTE COUNT 0.06 K/ L 0.00-0.50 (BEAKER) (test code = 416) BASOPHILS ABSOLUTE COUNT (BEAKER) 0.02 K/ L 0.00-0.20 (test code = 417) IMMATURE GRANULOCYTES-RELATIVE 0.60 % 0.00-0.00 H PERCENT (BEAKER) (test code = 2801) BASIC METABOLIC [id number] 05:44:00 Test Item Value Reference Range Interpretation Comments SODIUM (BEAKER) 141 meq/L 135-148 (test code = 381) POTASSIUM 3.6 meq/L 3.6-5.5 (BEAKER) (test code = 379) CHLORIDE (BEAKER) 108 meq/L 98-106 H (test code = 382) CO2 (BEAKER) 25 meq/L 20-29 (test code = 355) BLOOD UREA 3 mg/dL 10-26 L NITROGEN (BEAKER) (test code = 354) CREATININE 0.67 mg/dL 0.50-1.20 (BEAKER) (test code = 358) GLUCOSE RANDOM 109 mg/dL 70-110 (BEAKER) (test code = 652) CALCIUM (BEAKER) 8.2 mg/dL 8.5-10.5 L (test code = 697) EGFR (BEAKER) 120 Interpretatio n of eGFR (test code = mL/min/1.73 values Stage De scription 1092) sq m Result G1 Fifi l or high >=90 G2 Mildly decreased 60-89 G3a Mildl y to moderately 45-5 9 G3b Moderately to s everely 30-44 G4 Severl y decreased 15-29 G5 Kidney failure <15Reported eGF R is based on the CKD-EPI 2020 equation that d oes not use a race coefficientEsti mated GFR is not as accur ate as Creatinine Mare anton in predicting glom erular filtration rate . Estimated GFR is not appl icable for dialysis patien ts Geophysical Data Technician ID - [id number] 22:32:20 Test Item Value Reference Range Interpretation Comments CARBAMAZEPINE LEVEL (BEAKER) (test > ug/mL 4.0-12.0 HH code = 696) Geophysical Data Technician ID - BSBASIC METABOLIC [id number] 20:20:47 Test Item Value Reference Range Interpretation Comments SODIUM (BEAKER) 139 meq/L 135-148 (test code = 381) POTASSIUM 3.3 meq/L 3.6-5.5 L (BEAKER) (test code = 379) CHLORIDE (BEAKER) 109 meq/L 98-106 H (test code = 382) CO2 (BEAKER) 22 meq/L 20-29 (test code = 355) BLOOD UREA 4 mg/dL 10-26 L NITROGEN (BEAKER) (test code = 354) CREATININE 0.62 mg/dL 0.50-1.20 (BEAKER) (test code = 358) GLUCOSE RANDOM 102 mg/dL 70-110 (BEAKER) (test code = 652) CALCIUM (BEAKER) 8.0 mg/dL 8.5-10.5 L (test code = 697) EGFR (BEAKER) 122 Interpretati on of eGFR (test code = mL/min/1.73 values Stage De scription 1092) sq m Result G1 Fifi l or high >=90 G2 Mildly decreased 60-89 G3a Mildl y to moderately 45-5 9 G3b Moderately to s everely 30-44 G4 Severl y decreased 15-29 G5 Kidney failure <15Reported eGF R is based on the CKD-EPI 2020 equation that d oes not use a race coefficientEsti mated GFR is not as accur ate as Creatinine Mare walton in predicting glom erular filtration rate . Estimated GFR is not appl icable for dialysis patien ts Geophysical Data Technician ID - BRUCELACTIC ACID, [id number] 17:51:43 Test Item Value Reference Range Interpretation Comments LACTATE BLOOD VENOUS (2) ([facility]) 1.89 mmol/L 0.50-2.00 (test code = 2872) Geophysical Data Technician ID - BRUCEPOC-Glucose [id number] 17:10:41 Test Item Value Reference Range Interpretation Comments POC-Glucose Meter (test 98 mg/dL 70-110 : TE STED AT [facility] code = 1538) [address], [facility] [address]: Geophysical Data Technician/Techni emir ID = [id number] for Chelsey Mccarthy Lab Interpretation (test Normal code = 56916-0) [facility] [id number] 17:10:41 Test Item Value Reference Range Interpretation Comments POC-GLUCOSE METER 98 mg/dL 70-110 : TESTED A T [facility] ([facility]) (test code = [address], 1538) [facility] [address]: Geophysical Data Technician/Techni emir ID = [id number] for Frank jane Chelsey RAD, CHEST, 1 VIEW, NON [id number] 16:19:00Reason for exam:->sepsisShould this be performed at the bedside?->Yes [facility] 1980 Sex: MFINAL REPORTPATIENT ID: [id number] Chest AP portable erect History provided: Sepsis Radiographically normal-appearing heart and lungs. Signed: Min Sevilla Verified Date/Time: 06/21/2022 16:19:41 Reading Location: [facility] Diagnostic Imaging Reading Room - [facility] [id number] 16:02:34 Test Item Value Reference Range Interpretation Comments PARTIAL THROMBOPLASTIN 25.9 seconds 25.8-34.5 Final Information TIME (BEAKER) (test (Auto Ou tput) code = 760) PROTHROMBIN [id number] 16:02:33 Test Item Value Reference Range Interpretation Comments PROTIME (BEAKER) 10.4 seconds 9.8-12.0 Final Infor mation (test code = 759) (Auto Outp ut) INR (BEAKER) (test 0.94 <=5.90 Final Inf ormation code = 370) (Auto Output) RECOMMENDED COUMADIN/WARFARIN INR THERAPY RANGESSTANDARD DOSE: 2.0 - 3.0 Includes: PROPHYLAXIS for venous thrombosis, systemic embolization; TREATMENT for venous thrombosis and/or pulmonary embolus.HIGH RISK: Target INR is 2.5-3.5 for patients with mechanical heart valves.COMPREHENSIVE METABOLIC PANEL 2022-06-21 15:03:35 Test Item Value Reference Range Interpretation Comments TOTAL PROTEIN 5.9 gm/dL 6.0-8.5 L (BEAKER) (test code = 770) ALBUMIN (BEAKER) 3.8 g/dL 3.5-5.0 (test code = 1145) ALKALINE 78 U/L 30-115 PHOSPHATASE (BEAKER) (test code = 346) BILIRUBIN TOTAL 0.5 mg/dL 0.1-1.2 (BEAKER) (test code = 377) SODIUM (BEAKER) 139 meq/L 135-148 (test code = 381) POTASSIUM (BEAKER) 3.4 meq/L 3.6-5.5 L (test code = 379) CHLORIDE (BEAKER) 108 meq/L 98-106 H (test code = 382) CO2 (BEAKER) (test 19 meq/L 20-29 L code = 355) BLOOD UREA 3 mg/dL 10-26 L NITROGEN (BEAKER) (test code = 354) CREATININE 0.70 mg/dL 0.50-1.20 (BEAKER) (test code = 358) GLUCOSE RANDOM 99 mg/dL 70-110 (BEAKER) (test code = 652) CALCIUM (BEAKER) 8.4 mg/dL 8.5-10.5 L (test code = 697) AST (SGOT) 8 U/L 5-40 (BEAKER) (test code = 353) ALT (SGPT) 9 U/L 5-50 (BEAKER) (test code = 347) EGFR (BEAKER) 118 Interpretatio n of eGFR (test code = 1092) mL/min/1.[address] age Description sq m Result G1 Fifi l or high >=90 G2 Mildly decreased 60-89 G3a Mildl y to moderately 45-5 9 G3b Moderately to s everely 30-44 G4 Severl y decreased 15-29 G5 Kidney failure <15Reported eGF R is based on the CKD-EPI 2020 equation that d oes not use a race coefficientEsti mated GFR is not as accur ate as Creatinine Mare anton in predicting glom erular filtration rate . Estimated GFR is not appl icable for dialysis patien ts Geophysical Data Technician ID - [id number] 14:57:36 Test Item Value Reference Range Interpretation Comments PHOSPHORUS (BEAKER) (test code = 2.9 mg/dL 2.5-4.5 604) Geophysical Data Technician ID - [id number] 14:57:36 Test Item Value Reference Range Interpretation Comments MAGNESIUM (BEAKER) (test code = 1.9 mg/dL 1.5-3.0 627) Geophysical Data Technician ID - CAROLYNLACTIC ACID, [id number] 14:51:53 Test Item Value Reference Range Interpretation Comments LACTATE BLOOD VENOUS (2) (BEAKER) 3.58 mmol/L 0.50-2.00 H (test code = 2872) Geophysical Data Technician ID - CAROLYNThyroid Stimulating Hormone (TSH)2016-12-06 13:34:00 Test Item Value Reference Range Interpretation Comments TSH (test code = TSH) 1.59 mIU/mL 0.270-4.200 N RPR, [id number] 12:29:00 Test Item Value Reference Range Interpretation Comments RPR (test code = RPR) Non-Reactive Non-Reactive N Notes Date/Time Note Provider Source 2017-03-11 20:58:37-00:00 [facility] Discharge Summary PATIENT NAME: VARINDER FISH PHYSICIAN: Eunice Arenas MD Admitted: MR NUMBER: [id number] DISCHARGED: 02/10/2017 03:3 6:00 ATTENDING PHYSICIAN: Dr. Contreras. DATE OF ADMISSION: 02/02/2017. DATE OF DISCHARGE: 02/10/2017. REASON FOR ADMISSION: The patient is a 36-year-old male with a past psychiatric history of schizoaffective disorder and polysubstance us e disorder (opioids currently and alcohol and benzodiazepines). His last admis randi to [facility] was on 11/2016 for a suicide attempt. He is now presenting for suicidal ideation with a plan to overdose with i ntent as well as command auditory hallucinations telling him to "kill him self", visual hallucinations in the context of unstable psychiatric f ollow-up and polysubstance use. He was evaluated at [facility] and signed into [facility] volunt arily. On interview, he endorsed depressed mood for the last year, sleep disturbances, anhedonia, guilt, 20-pound weight loss over the last year, decreased energy, concentration problems and hopelessness, as well as his suicidal ideation. He also endorses paranoia, audio and visual hidalgo ucinations. He denies any other odd beliefs or delusions. His history is m ost significant for been on Suboxone from 9984-7326. He was not taking them as prescribed and would get them off the streets if needed, then 1 y ear ago, he decided to taper off them. The suboxone taper was not done under the superv ision of a psychiatrist or physician. When we saw him last at [facility] in 11/2016, we helped him finish the Suboxone taper with a meth adone taper. On discharge however he got a hold of some hydrocodone and st arted taking those. He then checked himself back into a psychiatric hospital to help him get off of the hydrocodone. He states that the medications that we discharged him on began not working. He then after being discharged from [facility], went to two [facility], had 1 mor e psychiatric hospitalization and finally ended up here at our psychiatric war d.His psych review of systems was significant for panic attacks and very sever e anxiety and agoraphobia and social phobia. Other than that, he denies any manic symptoms. Denies any history of manic symp toms. FINAL DIAGNOSES: AXIS I: 1. Major depressive disorder, recurrent, most r ecent episode, severe, with psychotic features. 2. Substance-induced mood disorder. 3. Opioid use disorder. AXIS II: None. AXIS III: None. AXIS IV: Unemployed, living with his mother, sep arated from his . He [facility] Discharge Summary PATIENT NAME: VARINDER FISH PHYSICIAN: Eunice Farr Admitted: MR NUMBER: [id number] DISCHARGED: 02/10/2017 03:3 6:00 ATTENDING PHYSICIAN: Dr. Contreras. DATE OF ADMISSION: 02/02/2017. DATE OF DISCHARGE: 02/10/2017. REASON FOR ADMISSION: The patient is a 36-year-old male with a past psychiatric history of schizoaffective disorder and polysubstance us e disorder (opioids currently and alcohol and benzodiazepines). His last admis randi to [facility] was on 11/2016 for a suicide attempt. He is now presenting for suicidal ideation with a plan to overdose with i ntent as well as command auditory hallucinations telling him to "kill him self", visual hallucinations in the context of unstable psychiatric f ollow-up and polysubstance use. He was evaluated at [facility] and signed into [facility] volunt arily. On interview, he endorsed depressed mood for the last year, sleep disturbances, anhedonia, guilt, 20-pound weight loss over the last year, decreased energy, concentration problems and hopelessness, as well as his suicidal ideation. He also endorses paranoia, audio and visual hidalgo ucinations. He denies any other odd beliefs or delusions. His history is m ost significant for been on Suboxone from 5230-5866. He was not taking them as prescribed and would get them off the streets if needed, then 1 y ear ago, he decided to taper off them. The suboxone taper was not done under the superv ision of a psychiatrist or physician. When we saw him last at [facility] in 11/2016, we helped him finish the Suboxone taper with a meth adone taper. On discharge however he got a hold of some hydrocodone and st arted taking those. He then checked himself back into a psychiatric hospital to help him get off of the hydrocodone. He states that the medications that we discharged him on began not working. He then after being discharged from [facility], went to two ERs, had 1 mor e psychiatric hospitalization and finally ended up here at our psychiatric war d.His psych review of systems was significant for panic attacks and very sever e anxiety and agoraphobia and social phobia. Other than that, he denies any manic symptoms. Denies any history of manic symp toms. FINAL DIAGNOSES: AXIS I: 1. Major depressive disorder, recurrent, most r ecent episode, severe, with psychotic features. 2. Substance-induced mood disorder. 3. Opioid use disorder. AXIS II: None. AXIS III: None. AXIS IV: Unemployed, living with his mother, sep arated from his . He [facility] Discharge Summary has 3 kids, has a supportive family in the area. Mary is his mother, her number is [phone]. I spoke with her reyes gilmore throughout his stay. His is Ranjana, her number is [phone]. I did not speak with her, as he asked me not to, since they are and not getting along at the moment. His Family Medicine doctor in [facility] is Dr. Ortega. His office number is [phone], his fax number is . I will fax the discharge summary to his office. I spoke with moni barnes about the current issues of the patient. He is in agreement with our disc harge plan. PRINCIPAL PROCEDURES: Psychopharmacotherapy. SPECIAL PROCEDURES: None. HOSPITAL COURSE: The patient is a 36-year-old male that was admitted to Dr. Contreras's team from 02/02/2017-02/10/2017. The patient was on unit restrictions along with elopement and standard PICU precautions. Th e patient was started on Celexa 40 mg p.o. daily for his depression, Risp erdal 2 mg p.o. b.i.d. for his psychotic features, Klonopin 1 mg p.o. b.i.d . with a taper as he did mention being on benzodiazepines prior to his ad mission, which he has got at other psych hospitalizations and ER visits. He w as also started on Vistaril 50 mg p.o. q.6h. p.r.n. for anxiety and trazodon e 50 mg p.o. at bedtime p.r.n. for insomnia. On 02/05/2017 we titrated gary banuelos Klonopin down to 0.5 b.i.d. We changed the Celexa to bedtime at the r equest of the patient. We increased his fish oil to 100 mg p.o. every 6 ho urs p.r.n. as the 50 mg were not working for anxiety. We also called our disa bility department to come and speak with him to get his application proces s started on 02/06/2017, it was when he finally got his first dose of Celexa as we had medication administration problems. It was also on this day that we titrated up his Risperdal to 3 mg p.o. b.i.d. The patient did ve ry well on Risperdal, that made the voices and the visual hallucinations go away. We also started him on propranolol 10 mg p.o. q.12 hours for anxiety. Gary holland did very well on propranolol and felt like his anxiety was manage d with the propranolol as well as Vistaril. As the Risperdal was working s o well, he was agreeable to starting Invega Sustenna, we administered the fi rst dose on 02/06/2017. His Invega Sustenna 234 mg IM. He then received a odell anneliese dose on 02/10/2017 of 156 mg IM. He tolerated it well. Initially, he e xperienced some drowsiness, but that self resolved. We discontinued the oral Risperdal after starting the Invega Sustenna. The patient showed symptom improvement. The patient attended daily assessments and group therapy. On the day of discharge, the patient was deemed suitable for discharge, based on symptom improvement. His anxiety was managed with the propranolol and Vis taril. His hallucinations had subsided with the oral Risperdal and then the In mason Sustenna injection. His mood had improved with the Celexa 40 mg p.o. oscar ry day. He had improved mood and affect, was sleeping well. His insight was fair. Judgment good. [facility] Discharge Summary has 3 kids, has a supportive family in the area. Mary is his mother, her number is [phone]. I spoke with her tongdavid gilmore throughout his stay. His is Ranjana, her number is [phone]. I did not speak with her, as he asked me not to, since they are and not getting along at the moment. His Family Medicine doctor in [facility] is Dr. Ortega. His office number is [phone], his fax number is . I will fax the discharge summary to his office. I spoke with moni barnes about the current issues of the patient. He is in agreement with our disc harge plan. PRINCIPAL PROCEDURES: Psychopharmacotherapy. SPECIAL PROCEDURES: None. HOSPITAL COURSE: The patient is a 36-year-old male that was admitted to Dr. Contreras's team from 02/02/2017-02/10/2017. The patient was on unit restrictions along with elopement and standard PICU precautions. Th e patient was started on Celexa 40 mg p.o. daily for his depression, Risp erdal 2 mg p.o. b.i.d. for his psychotic features, Klonopin 1 mg p.o. b.i.d . with a taper as he did mention being on benzodiazepines prior to his ad mission, which he has got at other psych hospitalizations and ER visits. He w as also started on Vistaril 50 mg p.o. q.6h. p.r.n. for anxiety and trazodon e 50 mg p.o. at bedtime p.r.n. for insomnia. On 02/05/2017 we titrated gary banuelos Klonopin down to 0.5 b.i.d. We changed the Celexa to bedtime at the r equest of the patient. We increased his fish oil to 100 mg p.o. every 6 ho urs p.r.n. as the 50 mg were not working for anxiety. We also called our disa bility department to come and speak with him to get his application proces s started on 02/06/2017, it was when he finally got his first dose of Celexa as we had medication administration problems. It was also on this day that we titrated up his Risperdal to 3 mg p.o. b.i.d. The patient did ve ry well on Risperdal, that made the voices and the visual hallucinations go away. We also started him on propranolol 10 mg p.o. q.12 hours for anxiety. Gary holland did very well on propranolol and felt like his anxiety was manage d with the propranolol as well as Vistaril. As the Risperdal was working s o well, he was agreeable to starting Invega Sustenna, we administered the fi rst dose on 02/06/2017. His Invega Sustenna 234 mg IM. He then received a odell anneliese dose on 02/10/2017 of 156 mg IM. He tolerated it well. Initially, he e xperienced some drowsiness, but that self resolved. We discontinued the oral Risperdal after starting the Invega Sustenna. The patient showed symptom improvement. The patient attended daily assessments and group therapy. On the day of discharge, the patient was deemed suitable for discharge, based on symptom improvement. His anxiety was managed with the propranolol and Vis taril. His hallucinations had subsided with the oral Risperdal and then the In mason Sustenna injection. His mood had improved with the Celexa 40 mg p.o. oscar ry day. He had improved mood and affect, was sleeping well. His insight was fair. Judgment good. [facility] Discharge Summary He denied any SI, HI, or AVH. The patient plans to be discharged to the [facility], continuing the psychotropic medicat ions, follow up with an outpatient psychiatrist and go to rehab with [facility]. MENTAL STATUS EXAMINATION ON DISCHARGE: GENERAL: He is a well-groomed, well-nourished [place] ucasian male, with good eye contact, calm attitude. No psychomotor retardati on, activation, tics, tardive dyskinesia or tremor. Speech regular rat e and rhythm, and volume with good articulation. Mood was "good." Affect is euthymic and congruent. Affect is even with normal range and intensity. Perception: Denies any audiovisual hallucinations. Thought process: Ally ear and goal directed. Thought content: Denies any SI, HI or delusions. Insight is fair. Judgment is good. The patient is alert and oriented to pe rson, place, time and circumstance. Memory and attention are grossly i ntact. Gait normal. LABS: None. DRUG REACTIONS AND INTERACTIONS: None. DISCHARGE MEDICATIONS: 1. Celexa 40 mg p.o. at bedtime. 2. Propranolol 10 mg p.o. q. 12 hours. 3. Vistaril 100 mg p.o. q.6 hours p.r.n. for an xiety. 4. Trazodone 50 mg p.o. at bedtime p.r.n. for i nsomnia. 5. He received both his initial and booster dos e of Invega Sustenna. His next dose of Invega Sustenna will be on 017. We recommend a dose of 234 mg IM; however, a dose of 156 mg IM may be appropriate. DISCHARGE INSTRUCTIONS: Provided to the patient. PHYSICAL ACTIVITY: As tolerated. DRIVING RESTRICTIONS: Do not drive after taking sedating medications s uch as Vistaril and trazodone. DIET RESTRICTIONS: None. FOLLOWUP: The patient has a followup appointment scheduled at the [facility] in [place], [place] on 03/03/2017 at 8:[address] Weems. Patient has been given specific instructions on how to g et to the appointment. [facility] Discharge Summary He denied any SI, HI, or AVH. The patient plans to be discharged to the [facility], continuing the psychotropic medicat ions, follow up with an outpatient psychiatrist and go to rehab with [facility]. MENTAL STATUS EXAMINATION ON DISCHARGE: GENERAL: He is a well-groomed, well-nourished [place] ucasian male, with good eye contact, calm attitude. No psychomotor retardati on, activation, tics, tardive dyskinesia or tremor. Speech regular rat e and rhythm, and volume with good articulation. Mood was "good." Affect is euthymic and congruent. Affect is even with normal range and intensity. Perception: Denies any audiovisual hallucinations. Thought process: Ally ear and goal directed. Thought content: Denies any SI, HI or delusions. Insight is fair. Judgment is good. The patient is alert and oriented to pe rson, place, time and circumstance. Memory and attention are grossly i ntact. Gait normal. LABS: None. DRUG REACTIONS AND INTERACTIONS: None. DISCHARGE MEDICATIONS: 1. Celexa 40 mg p.o. at bedtime. 2. Propranolol 10 mg p.o. q. 12 hours. 3. Vistaril 100 mg p.o. q.6 hours p.r.n. for an xiety. 4. Trazodone 50 mg p.o. at bedtime p.r.n. for i nsomnia. 5. He received both his initial and booster dos e of Invega Sustenna. His next dose of Invega Sustenna will be on 017. We recommend a dose of 234 mg IM; however, a dose of 156 mg IM may be appropriate. DISCHARGE INSTRUCTIONS: Provided to the patient. PHYSICAL ACTIVITY: As tolerated. DRIVING RESTRICTIONS: Do not drive after taking sedating medications s uch as Vistaril and trazodone. DIET RESTRICTIONS: None. FOLLOWUP: The patient has a followup appointment scheduled at the [facility] in [place], [place] on 03/03/2017 at 8:[address] Weems. Patient has been given specific instructions on how to g et to the appointment. [facility] Discharge Summary DISPOSITION: The patient is currently stable and tolerating a ll his medications. We are discharging the patient to the [facility] and R ehab with [facility]. The patient's prognosis is poor as he has a hist ory of noncompliance and anxiety that leads him to go to hospitals and ER instead of continuing followup with one psychiatrist on an outpatient basis. However, if he is able to be compliant with his psychotropic medic ations and consistent with outpatient followup, he should do very well. He has also been encouraged to abstain from illicit drug use and not to discont inue any of his psychotropic medications without the [facility]. The patient has also met with his social services specialist to obtain th e appropriate follow-up paperwork. The importance of following through w ith this plan have been reviewed with the patient, with the jyotiin reshma that compliance will be crucial to his recovery. He has been given the [facility] hotline number and information about [facility] if he wishes to obtain therapy. He has been given information about the chemical dependency evaluation so he can get into rehab with [facility]. He is agreeable to this plan. MD Hawa Plummer MD LK/SALLY/MOR/ELIE TD: 02/16/2017 17:30 CC:Dr. Contreras Electronically Authenticated and Edited by: Eunice Arenas MD On 02/24/2017 03:21 PM [facility] Discharge Summary DISPOSITION: The patient is currently stable and tolerating a ll his medications. We are discharging the patient to the [facility]. The patient's prognosis is poor as he has a hist ory of noncompliance and anxiety that leads him to go to hospitals and ER instead of continuing followup with one psychiatrist on an outpatient basis. However, if he is able to be compliant with his psychotropic medic ations and consistent with outpatient followup, he should do very well. He has also been encouraged to abstain from illicit drug use and not to discont inue any of his psychotropic medications without the guidance [facility]. The patient has also met with his social services specialist to obtain th e appropriate follow-up paperwork. The importance of following through w ith this plan have been reviewed with the patient, with the richard justice that compliance will be crucial to his recovery. He has been given the [facility] hotline number and information about [facility] if he wishes to obtain therapy. He has been given information about the chemical dependency evaluation so he can get into rehab with [facility]. He is agreeable to this plan. MD Hawa Plummer MD LK/SALLY/MOR/ACH TD: 02/16/2017 17:30 CC:Dr. Contreras Electronically Authenticated and Edited by: Eunice Arenas MD On 02/24/2017 03:21 PM AUTOMOTIVE COLLISION ESTIMATOR Electronically Authenticated by: Hawa Contreras MD On 02/26/2017 12:50 PM AUTOMOTIVE COLLISION ESTIMATOR 2017-02-05 22:28:11-00:00 [facility] Psych Eval PATIENT NAME: VARINDER FISH PHYSICIAN: Eunice Farr Admitted: MR NUMBER: [id number] DISCHARGED: Psych Eval Patient Name: VARINDER FISH Date of Service: Date of : April [birth year] Clinician: Eunice Arenas MD User Field 1: J Encounter Visit: [facility] User Field 3: J Referring Hawa Contreras MD Clinician: PSYCHIATRIC EVALUATION INFORMANTS: Include the patient, the patient's mother, [facility]'s medical record, outside hospital record. CHIEF COMPLAINT: Command auditory hallucination to "kill myself a nd cut myself." HISTORY OF PRESENT ILLNESS: Mr. Varinder Fish is a 36-year-old male w ith a past psychiatric history of schizoaffective disorder, last seen a t [facility] in November 2016, presenting for command audito ry hallucinations telling him to "kill himself, developed visual hallucination s of faceless people and suicidal ideation with a plan. All of this is in the context of increasingly worse depression, medication adherence though he has had unstable psychiatric followup and current opioid use with current ariella zodiazepine use and a very recent history of opioid use. On interview, he i s positive for depressed mood since his grandfather 3 years ago, and since his grandmother in May of this year. He also endorses decrease d sleep, anhedonia, guilt, decreased energy, difficulty concentrating, weig ht loss and suicidal ideation. He states that when he was last discha rged from [facility] in November 2016, the medications that gary holland was discharged on were Seroquel 100 mg q.a.m. and 200 mg at bedtime as well as trazodone and Vistaril and Klonopin were working well and his symptoms were controlled; however, after that admission where he was also weaned off of Suboxone with methadone. On discharge, he started using [place] from off the streets. He then checked himself into [facility] . There they changed his psychotropic medications to Trileptal and Risper marcus 2 mg at bedtime. He found no relief with either of those. He does st ate that Seroquel was helping, however, it made him very drowsy. He womack d another admission to [facility] in [place] as well as 2 visits to the ER which eventually led him to this present admission. He states that he was never able to make it to his appointment with a [facility] psychiatrist tressa miramontes to these admissions and ER visits. PROS: His psych review of systems is significant for d epressive symptoms as mentioned above. He was also positive for com raymundo auditory hallucinations that present as his depression gets worse. He is also positive for visual hallucinations, stating they are "faceless peopl e." He is positive for paranoia, thinking that people are out to get hi m. He is negative for any other delusions. He is positive for panic attack s. He denies any history of abuse or trauma. Denies any history of manic epi sodes that occurred outside [facility] Psych Eval PATIENT NAME: VARINDER FISH PHYSICIAN: Eunice Farr Admitted: MR NUMBER: [id number] DISCHARGED: Psych Eval Patient Name: VARINDER FISH Date of Service: Date of : 1980 Clinician: Eunice Arenas MD User Field 1: J Encounter Visit: [facility] User Field 3: J Referring Hawa Contreras MD Clinician: PSYCHIATRIC EVALUATION INFORMANTS: Include the patient, the patient's mother, [facility]'s medical record, outside hospital record. CHIEF COMPLAINT: Command auditory hallucination to "kill myself a nd cut myself." HISTORY OF PRESENT ILLNESS: Mr. Varinder Fish is a 36-year-old male w ith a past psychiatric history of schizoaffective disorder, last seen a t [facility] in November 2016, presenting for command audito ry hallucinations telling him to "kill himself, developed visual hallucination s of faceless people and suicidal ideation with a plan. All of this is in the context of increasingly worse depression, medication adherence though he has had unstable psychiatric followup and current opioid use with current ariella zodiazepine use and a very recent history of opioid use. On interview, he i s positive for depressed mood since his grandfather 3 years ago, and since his grandmother in May of this year. He also endorses decrease d sleep, anhedonia, guilt, decreased energy, difficulty concentrating, weig ht loss and suicidal ideation. He states that when he was last discha rged from [facility] in November 2016, the medications that gary holland was discharged on were Seroquel 100 mg q.a.m. and 200 mg at bedtime as well as trazodone and Vistaril and Klonopin were working well and his symptoms were controlled; however, after that admission where he was also weaned off of Suboxone with methadone. On discharge, he started using [place] from off the streets. He then checked himself into [facility] . There they changed his psychotropic medications to Trileptal and Risper marcus 2 mg at bedtime. He found no relief with either of those. He does st ate that Seroquel was helping, however, it made him very drowsy. He womack d another admission to [facility] in [place] as well as 2 visits to the ER which eventually led him to this present admission. He states that he was never able to make it to his appointment with a [facility] psychiatrist tressa miramontes to these admissions and ER visits. PROS: His psych review of systems is significant for d epressive symptoms as mentioned above. He was also positive for com raymundo auditory hallucinations that present as his depression gets worse. He is also positive for visual hallucinations, stating they are "faceless peopl e." He is positive for paranoia, thinking that people are out to get hi m. He is negative for any other delusions. He is positive for panic attack s. He denies any history of abuse or trauma. Denies any history of manic epi sodes that occurred outside Patient Name: VARINDER FISH [id number] of drug use. He denies any current manic symptom s and no manic symptoms are observed during the evaluation. He is positive f or being tremulous and diaphoretic. PAST PSYCHIATRIC HISTORY: His psychiatrist is at [facility]; however, he h as not been able to make a [facility] psychiatric appointment as he is ramos g to other hospitals and ERs since his last discharge from [facility] in November 2016. THERAPIST: None. HOSPITALIZATIONS: Multiple one and only admission to [facility] in November 2016, where he was treated by Dr. Contreras and Dr. Tyler for a suicide attempt. Since his discharge, he has been to [facility] twice for worsening symptoms. Past medication trials, Celexa with relief, Sero quel with relief; however, increased drowsiness and sedation. Risperdal 2 m g at bedtime without relief. He does say that his recent medications include opioids that are not all prescribed for him. He states those that are pre scribed for him are either Ativan or Xanax 0.5 mg b.i.d. He also takes his 's Clorazepic acid 7.5 mg daily. Suicide attempts 5 including one about 3 weeks ago after being discharged from [facility] in [place] where he overdosed on all of his psychotropic medications. SUBSTANCE USE: Alcohol, history of heavy use; however, he stopp ed using alcohol 1 year ago. Tobacco, he has a 35-[id number] history of smokin g. He has a history of using speed and heroin as well as OxyContin prior to and in 2009 up until 2015, he was using Suboxone, but are doses that were not prescribed to him up to about 80 mg daily. Often that he would get of f the streets. Last year, he decided to self taper himself and has not been u nder psychiatric care for this taper. The end of his taper was when we saw him in November this year and finished the taper with a methadone taper be tween his last discharge and now he was able to get a hold of some [place] whic h he has been using since his last discharge when he has been out of the [facility]. PAST MEDICAL HISTORY: None. PRIMARY CARE PHYSICIAN: Dr. Ortega in [place] is a family medication p ractitioner. ALLERGIES: NO KNOWN DRUG ALLERGIES. Patient Name: VARINDER FISH [id number] of drug use. He denies any current manic symptom s and no manic symptoms are observed during the evaluation. He is positive f or being tremulous and diaphoretic. PAST PSYCHIATRIC HISTORY: His psychiatrist is at [facility]; however, he h as not been able to make a [facility] psychiatric appointment as he is ramos g to other hospitals and ERs since his last discharge from [facility] in November 2016. THERAPIST: None. HOSPITALIZATIONS: Multiple one and only admission to [facility] in November 2016, where he was treated by Dr. Contreras and Dr. Tyler for a suicide attempt. Since his discharge, he has been to [facility] twice for worsening symptoms. Past medication trials, Celexa with relief, Sero quel with relief; however, increased drowsiness and sedation. Risperdal 2 m g at bedtime without relief. He does say that his recent medications include opioids that are not all prescribed for him. He states those that are pre scribed for him are either Ativan or Xanax 0.5 mg b.i.d. He also takes his 's Clorazepic acid 7.5 mg daily. Suicide attempts 5 including one about 3 weeks ago after being discharged from [facility] in [place] where he overdosed on all of his psychotropic medications. SUBSTANCE USE: Alcohol, history of heavy use; however, he stopp ed using alcohol 1 year ago. Tobacco, he has a 89-[id number]-[id number] history of smokin g. He has a history of using speed and heroin as well as OxyContin prior to and in 2009 up until 2016, he was using Suboxone, but are doses that were not prescribed to him up to about 80 mg daily. Often that he would get of f the streets. Last year, he decided to self taper himself and has not been u nder psychiatric care for this taper. The end of his taper was when we saw him in November this year and finished the taper with a methadone taper be tween his last discharge and now he was able to get a hold of some [place] whic h he has been using since his last discharge when he has been out of the [facility]. PAST MEDICAL HISTORY: None. PRIMARY CARE PHYSICIAN: Dr. Ortega in [place] is a family medication p ractitioner. ALLERGIES: NO KNOWN DRUG ALLERGIES. Patient Name: VARINDER FISH [id number] PAST SURGICAL HISTORY: He had multiple eye surgeries as a child when gr eater than 8 years of age. His home medications included, 1. Risperdal 2 mg p.o. at bedtime. 2. Trileptal t.i.d., unknown dose. 3. Klonopin 0.5 q.i.d. 4. Trazodone 150 mg p.o. at bedtime. 5. Flexeril. 6. He also reports taking Xanax or Ativan 0.5 m g b.i.d. 7. Clorazepate acid 7.5 mg daily, which were hi s 's prescription. SOCIAL HISTORY: Recent stressors include the of his grandm other in May of this year as well as from his of 11 years and moving to [facility] 1 year ago. HOUSEHOLD: Currently lives with his mother who has a substa nce abuse disorder with Suboxone. 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 EDUCATION LEVEL: High school with some college. LEGAL HISTORY: He has a DWI in 2001. Other than that, no other charges. FAMILY HISTORY: Mother with Suboxone use disorder. Father with a lcoholism. Uncle with multiple suicide attempts. REVIEW OF SYSTEMS: GENERAL: Denies. HEENT: Positive for headache, chronic bilateral in the occipital area which he describes as a pressure. CARDIOVASCULAR: Denies. RESPIRATORY: Denies. GASTROINTESTINAL: Denies. GENITOURINARY: Denies. MUSCULOSKELETAL: Denies. NEUROLOGIC: Denies. ENDOCRINE: Denies. Patient Name: VARINDER FISH [id number] PAST SURGICAL HISTORY: He had multiple eye surgeries as a child when gr eater than 8 years of age. His home medications included, 1. Risperdal 2 mg p.o. at bedtime. 2. Trileptal t.i.d., unknown dose. 3. Klonopin 0.5 q.i.d. 4. Trazodone 150 mg p.o. at bedtime. 5. Flexeril. 6. He also reports taking Xanax or Ativan 0.5 m g b.i.d. 7. Clorazepate acid 7.5 mg daily, which were hi s 's prescription. SOCIAL HISTORY: Recent stressors include the of his grandm other in May of this year as well as from his of 11 years and moving to [facility] 1 year ago. HOUSEHOLD: Currently lives with his mother who has a substa nce abuse disorder with Suboxone. 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 EDUCATION LEVEL: High school with some college. LEGAL HISTORY: He has a DWI in 2001. Other than that, no other charges. FAMILY HISTORY: Mother with Suboxone use disorder. Father with a lcoholism. Uncle with multiple suicide attempts. REVIEW OF SYSTEMS: GENERAL: Denies. HEENT: Positive for headache, chronic bilateral in the occipital area which he describes as a pressure. CARDIOVASCULAR: Denies. RESPIRATORY: Denies. GASTROINTESTINAL: Denies. GENITOURINARY: Denies. MUSCULOSKELETAL: Denies. NEUROLOGIC: Denies. ENDOCRINE: Denies. Patient Name: VARINDER FISH [id number] SKIN: Denies. PHYSICAL EXAMINATION: VITAL SIGNS: Temperature 97.7, pulse 72, respira tory rate 18, blood pressure 131/54. MENTAL STATUS EXAMINATION: GENERAL: He is a well-appearing, well-nourished male, with good eye contact, calm attitude. No psychomotor retar dation, activation, tics, hives, dyskinesia or tremor. SPEECH: Regular rate, rhythm, and volume with go od articulation. Mood is depressed. Affect is depressed and congruent. Af fect is even with normal range and intensity. Perception: Currently denie s audiovisual hallucinations, but states that last night he wa s seeing people without faces and hearing the voices telling him to "kill myse lf and cut myself." Thought process is linear and goal directed. Thought con tent: Denies any current SI, HI, or delusions. Insight is fair. Judgment: Poor. The patient is alert and oriented to person, place, time and ci rcumstance. Recall intact, able to name three words immediately and at 2 mi nutes. Memory intact. Able to name the current and last 3 presidents. Atten tion intact. Able to spell the word [place] backwards. Abstraction intact, ab le to identify abstract similarities between a ruler and a clock. Fund o f knowledge appropriate per education level, able to name 5 cities. Gait nor mal. LABORATORY DATA: UDS is positive for benzodiazepines only. CBC w ithin normal limits. CMP within normal limits. Blood alcohol content unde tectable. UA within normal limits. ASSESSMENT: Mr. Varinder Fish is a 36-year-old male w ith a past psychiatric history of schizoaffective disorder and past jerrod cide attempts presenting for command auditory hallucinations telling him to k ill himself all in the context of worsening depression, disjointed psyc hiatric followup, current benzodiazepine use and a recent history of opioi d use. On interview, he is positive for depressive symptoms, including depr essed mood, decreased sleep, anhedonia, guilt, decreased energy, decreased co ncentration, weight loss and suicidal ideation for more than 2 weeks. He is a lso positive for visual hallucinations and some paranoia about people ta lking about him. He denies any history of manic episodes and does not demon strate any current manic symptoms. He denies any other delusions. DIAGNOSTIC IMPRESSION: AXIS I: Major depressive disorder, recurrent, mo st recent episode, severe, with psychotic features. He also has substance u se disorder for opioids as he is taking them, not as prescribed, as well as a recent history of opioid use and benzodiazepine withdrawal. Patient Name: VARINDER FISH [id number] SKIN: Denies. PHYSICAL EXAMINATION: VITAL SIGNS: Temperature 97.7, pulse 72, respira tory rate 18, blood pressure 131/54. MENTAL STATUS EXAMINATION: GENERAL: He is a well-appearing, well-nourished male, with good eye contact, calm attitude. No psychomotor retar dation, activation, tics, hives, dyskinesia or tremor. SPEECH: Regular rate, rhythm, and volume with go od articulation. Mood is depressed. Affect is depressed and congruent. Af fect is even with normal range and intensity. Perception: Currently denie s audiovisual hallucinations, but states that last night he wa s seeing people without faces and hearing the voices telling him to "kill myse lf and cut myself." Thought process is linear and goal directed. Thought con tent: Denies any current SI, HI, or delusions. Insight is fair. Judgment: Poor. The patient is alert and oriented to person, place, time and ci rcumstance. Recall intact, able to name three words immediately and at 2 mi nutes. Memory intact. Able to name the current and last 3 presidents. Atten tion intact. Able to spell the word [place] backwards. Abstraction intact, ab le to identify abstract similarities between a ruler and a clock. Fund o f knowledge appropriate per education level, able to name 5 cities. Gait nor mal. LABORATORY DATA: UDS is positive for benzodiazepines only. CBC wi thin normal limits. CMP within normal limits. Blood alcohol content unde tectable. UA within normal limits. ASSESSMENT: Mr. Varinder Fish is a 36-year-old male w ith a past psychiatric history of schizoaffective disorder and past jerrod cide attempts presenting for command auditory hallucinations telling him to k ill himself all in the context of worsening depression, disjointed psyc hiatric followup, current benzodiazepine use and a recent history of opioi d use. On interview, he is positive for depressive symptoms, including depr essed mood, decreased sleep, anhedonia, guilt, decreased energy, decreased co ncentration, weight loss and suicidal ideation for more than 2 weeks. He is a lso positive for visual hallucinations and some paranoia about people ta lking about him. He denies any history of manic episodes and does not demon strate any current manic symptoms. He denies any other delusions. DIAGNOSTIC IMPRESSION: AXIS I: Major depressive disorder, recurrent, mo st recent episode, severe, with psychotic features. He also has substance u se disorder for opioids as he is taking them, not as prescribed, as well as a recent history of opioid use and benzodiazepine withdrawal. Patient Name: VARINDER FISH 2013 AXIS II: None. AXIS III: None. AXIS IV : Currently lives with mother. Has a wif e and 3 kids, ages 2, 3 and 5, is unemployed. Last education high school. LEGAL HISTORY: Significant for one DWI at the age of 21. His mo ther is Mary, her number is [phone]. TREATMENT PLAN: Mr. Varinder Fish will be admitted to Dr. Contreras's s ervice on the [facility] Inpatient Unit and placed on suicide, elopement, standard PICU precautions and unit restriction. He will be started on Klon opin 1 mg p.o. b.i.d., which we will taper during his stay for his benzodiaze pine withdrawal. We will also start him on Celexa 40 mg p.o. daily and Ri sperdal 2 mg p.o. b.i.d. for his depression and mood congruent psychotic feat ures. He will also be started on trazodone 50 mg p.o. at bedtime p.r.n . for insomnia and Vistaril 50 mg p.o. every 6 hours p.r.n. for anxiety. He will be offered nicotine patch and gum for nicotine replacement. Internal Medicine has been consulted for current medical needs. She will be monitored daily while in the unit. We plan to discharge to home with either mother or . He has been encouraged to attend all group therapy sessions to participate in his treatment and to bring any concerns to the atten tion of the treatment team. MD Hawa Plummer MD Date Dictated: 02/03/2017 Date 02/03/2017 Transcribed: DREW/FILIPPO/TABITHA/MCKAYLA cc:Hawa Contreras MD Electronically Authenticated and Edited by: Eunice Arenas MD On 02/05/2017 10:27 PM AUTOMOTIVE COLLISION ESTIMATOR Patient Name: VARINDER FISH [id number] AXIS II: None. AXIS III: None. AXIS IV : Currently lives with mother. Has a wif e and 3 kids, ages 2, 3 and 5, is unemployed. Last education high school. LEGAL HISTORY: Significant for one DWI at the age of 21. His mo ther is Mary, her number is [phone]. TREATMENT PLAN: Mr. Varinder Fish will be admitted to Dr. Contreras's s [facility] on the [facility] Inpatient Unit and placed on suicide, elopement, standard PICU precautions and unit restriction. He will be started on Klon opin 1 mg p.o. b.i.d., which we will taper during his stay for his benzodiaze pine withdrawal. We will also start him on Celexa 40 mg p.o. daily and Ri sperdal 2 mg p.o. b.i.d. for his depression and mood congruent psychotic feat ures. He will also be started on trazodone 50 mg p.o. at bedtime p.r.n . for insomnia and Vistaril 50 mg p.o. every 6 hours p.r.n. for anxiety. He will be offered nicotine patch and gum for nicotine replacement. Internal Medicine has been consulted for current medical needs. She will be monitored daily while in the unit. We plan to discharge to home with either mother or . He has been encouraged to attend all group therapy sessions to participate in his treatment and to bring any concerns to the atten tion of the treatment team. MD Hawa Plummer MD Date Dictated: 02/03/2017 Date 02/03/2017 Transcribed: DREW/FILIPPO/TABITHA/MCKAYLA cc:Hawa Contreras MD Electronically Authenticated and Edited by: Eunice Arenas MD On 02/05/2017 10:27 PM AUTOMOTIVE COLLISION ESTIMATOR Electronically Authenticated by: Hawa Contreras MD On 02/08/2017 07:45 AM AUTOMOTIVE COLLISION ESTIMATOR 2017-02-04 08:30:47-00:00 [facility] History and Physical PATIENT NAME: VARINDER FISH PHYSICIAN: Ventura Russell se, MD Admitted: MR NUMBER: [id number] DISCHARGED: DATE OF SERVICE: 02/03/2017 TIME: Seem approximately at around 1350. REASON FOR EVALUATION: Medical management. REQUESTING PHYSICIAN: Hawa Contreras MD. DICTATING PHYSICIAN: Ventura Fisher MD. HISTORY OF PRESENT ILLNESS: This is a 36-year-old male, who has apparent pas t medical history of schizoaffective disorder and has had issues with his visual acuity as he has had multiple eye surgeries and still has residua l floaters that comes from time to time. On top of his eye surgeries he al so had an unspecified nasal surgery in the past as well as a left ankle surg amado. The patient has been at multiple hospitals in th e recent past, most recently in our facility in November 2016 and has been a t 2 other facilities since then. Most recently, he was in [facility] for inpatient psychiatric care. The patient came in account with regard to worse digna of his symptoms, once again was more depressed than usual, with suicid al ideation and apparently had expressed plans of overdosing. He states gloria t he had been compliant with his medications and he states he was only taking Celexa and Klonopin. He states that he was not happy with the inpatient care at [facility] and is glad he is at this facility. Anyho w, he went through [facility] for further evaluat ion. There, he had the following evaluation done: He had a white count on the CBC that showed a white count 8.4, hemoglobin 15.7, hematocrit 46.2, platelet count 230,000. He had a BUN of 9, creatinine 0.73, potassium 3. 8, sodium 136. There was no acetaminophen noted in his system. No alcohol noted in the system. His LFTs were within normal limits. His INR was 1.02, PTT of 27.9. No salicylate were noted in the system. His urine drug screen was positive for benzodiaz epines. His urinalysis did not indicate infection. He had an EKG performed, which showed normal sin us rhythm mechanism without ST deviation, no axis deviation, no bundle branc h block, that was obvious. [facility] History and Physical PATIENT NAME: VARINDER FISH PHYSICIAN: Ventura Russell se, MD Admitted: MR NUMBER: [id number] DISCHARGED: DATE OF SERVICE: 02/03/2017 TIME: Seem approximately at around 1350. REASON FOR EVALUATION: Medical management. REQUESTING PHYSICIAN: Hawa Contreras MD. DICTATING PHYSICIAN: Ventura Fisher MD. HISTORY OF PRESENT ILLNESS: This is a 36-year-old male, who has apparent pas t medical history of schizoaffective disorder and has had issues with his visual acuity as he has had multiple eye surgeries and still has residua l floaters that comes from time to time. On top of his eye surgeries he als o had an unspecified nasal surgery in the past as well as a left ankle surg amado. The patient has been at multiple hospitals in th e recent past, most recently in our facility in November 2016 and has been a t 2 other facilities since then. Most recently, he was in [facility] for inpatient psychiatric care. The patient came in account with regard to worse digna of his symptoms, once again was more depressed than usual, with suicid al ideation and apparently had expressed plans of overdosing. He states gloria t he had been compliant with his medications and he states he was only taking Celexa and Klonopin. He states that he was not happy with the inpatient care at [facility] and is glad he is at this facility. Anyho w, he went through [facility] for further evaluat ion. There, he had the following evaluation done: He had a white count on the CBC that showed a white count 8.4, hemoglobin 15.7, hematocrit 46.2, platelet count 230,000. He had a BUN of 9, creatinine 0.73, potassium 3. 8, sodium 136. There was no acetaminophen noted in his system. No alcohol noted in the system. His LFTs were within normal limits. His INR was 1.02, PTT of 27.9. No salicylate were noted in the system. His urine drug screen was positive for benzodiaz epines. His urinalysis did not indicate infection. He had an EKG performed, which showed normal sin us rhythm mechanism without ST deviation, no axis deviation, no bundle branc h block, that was obvious. Patient Name: VARINDER FISH [id number] REVIEW OF SYSTEMS: Otherwise documented above, the rest of 10-point review of systems was asked and negative. PAST MEDICAL/ SURGICAL HISTORY: As stated above. HOME MEDICATIONS: The patient states he was just taking Celexa and Klonopin. He does not take any other medications for chronic medical condit ions. ALLERGIES: NONE KNOWN. SOCIAL HISTORY: Smokes about 2 packs a day of cigarettes. He has been sober for 50 days from various drugs. He does not drink alcohol. He is and he has 3 children. He is currently unemployed. FAMILY HISTORY: No premature history of CAD. PHYSICAL EXAMINATION: VITAL SIGNS: Temperature 97.7 degrees Fahrenheit , heart rate 72, respiratory rate 18, blood pressure 131/54. GENERAL: The patient is sitting in chair, appear s comfortable, somewhat with a depressed affect, no acute distress. HEENT: Mucous membranes are moist. Normocephalic , atraumatic. EOMI. No obvious nystagmus appreciated. NECK: No adenopathy. No JVD. Midline supple. CHEST: Clear to auscultation bilaterally. No whe ezes, rhonchi or rales. HEART: S1, S2 audible. Rhythm is regular. No gal lops. ABDOMEN: Soft, nontender, normoactive bowel soun ds. GENITOURINARY: Deferred. BACK: No spinal or paraspinal tenderness. No CVA tenderness. SKIN: No sancho rash or ecchymotic lesions. Good skin turgor otherwise. EXTREMITIES: No cyanosis, clubbing or edema. Dis socorro extremities are warm. NEUROLOGIC: Tongue is midline, no facial symmetr y, no nystagmus, good hand repair operator bilaterally. ASSESSMENT AND PLAN: This is a 36-year-old male who has a significant psychiatric illness history presumed to be from schizoaffective disorder veronika rachel other mood disorder who has had very difficult to control symptoms, who was once again admitted with suicidal ideation. The patient claims he is comp liant with his medications. Patient Name: VARINDER FISH [id number] REVIEW OF SYSTEMS: Otherwise documented above, the rest of 10-point review of systems was asked and negative. PAST MEDICAL/ SURGICAL HISTORY: As stated above. HOME MEDICATIONS: The patient states he was just taking Celexa and Klonopin. He does not take any other medications for chronic medical condit ions. ALLERGIES: NONE KNOWN. SOCIAL HISTORY: Smokes about 2 packs a day of cigarettes. He has been sober for 50 days from various drugs. He does not drink alcohol. He is and he has 3 children. He is currently unemployed. FAMILY HISTORY: No premature history of CAD. PHYSICAL EXAMINATION: VITAL SIGNS: Temperature 97.7 degrees Fahrenheit , heart rate 72, respiratory rate 18, blood pressure 131/54. GENERAL: The patient is sitting in chair, appear s comfortable, somewhat with a depressed affect, no acute distress. HEENT: Mucous membranes are moist. Normocephalic , atraumatic. EOMI. No obvious nystagmus appreciated. NECK: No adenopathy. No JVD. Midline supple. CHEST: Clear to auscultation bilaterally. No whe ezes, rhonchi or rales. HEART: S1, S2 audible. Rhythm is regular. No gal lops. ABDOMEN: Soft, nontender, normoactive bowel soun ds. GENITOURINARY: Deferred. BACK: No spinal or paraspinal tenderness. No CVA tenderness. SKIN: No sancho rash or ecchymotic lesions. Good skin turgor otherwise. EXTREMITIES: No cyanosis, clubbing or edema. Dis socorro extremities are warm. NEUROLOGIC: Tongue is midline, no facial symmetr y, no nystagmus, good hand repair operator bilaterally. ASSESSMENT AND PLAN: This is a 36-year-old male who has a significant psychiatric illness history presumed to be from schizoaffective disorder veronika rachel other mood disorder who has had very difficult to control symptoms, who was once again admitted with suicidal ideation. The patient claims he is comp liant with his medications. Patient Name: VARINDER FISH [id number] We will start this patient on nicotine patch 21 mg daily. Otherwise, the rest of the care as per the [facility] service. We thank you for the opportunity for us to see t his patient. Please call us with any questions regarding the care of the pat ient. MD SVETLANA Duncan/KAMINI TD: 02/03/2017 15:51 CC:Hawa Contreras MD Patient Name: VARINDER FISH [id number] We will start this patient on nicotine patch 21 mg daily. Otherwise, the rest of the care as per the [facility] service. We thank you for the opportunity for us to see t his patient. Please call us with any questions regarding the care of the pat ient. MD EDWARD Duncan TD: 02/03/2017 15:51 CC:Hawa Contreras MD Electronically Authenticated by: Ventura Fisher MD On 02/04/2017 08:30 AM [facility] 2016-12-16 10:52:29-00:00 [facility] Discharge Summary PATIENT NAME: VARINDER FISH PHYSICIAN: Aurora estrada MD Admitted: MR NUMBER: [id number] DISCHARGED: 12/08/2016 12:0 0:00 REASON FOR ADMISSION: Mr. Varinder Fish is a 36-year-old male w ith past psychiatric history of schizoaffective disorder and anxiety disorder , who was transferred from [facility] for suicide attempt after cuttin g his wrist. The patient stated that he began experiencing suicidal ideat ion about 10 months ago and that the thoughts were increasing in intensity a nd frequency of incidents where he was actually trying to hurt himself. Ho wever, the patient states that he is unable to follow through with acts co mpletely due to his kids and his family. He was planning on doing it, but he does not remember going to the places where he actually cut his wrist. He s tates that he blacked out during the incident. The patient also endorsed h earing child-like laughter of auditory hallucinations for the past several mon ths in the absence of depressive symptoms at times. The patient also e ndorsed seeing shadows of hallucinations over the past several months as w ell as seeing people such as his grandfather. The patient and his fam caro state that his symptoms began about a year ago when he and his family mo mina from [employer] into [place]. The patient's family also stated that t he symptoms began occurring during his Suboxone decreased over the past 2 ye ars where he went from 36 mg of Suboxone per day to 8 mg of Suboxone per day. The patient and his family believe that the drugs and the Suboxone may have been lasting the symptoms for years. On initial interview, the patient end orsed depressive symptoms of insomnia, anhedonia, guilt and anorexia with jerardo ght loss, decreased concentration, hopelessness, psychomotor agitati on for the past year. Screening is positive for depression. Patient roger so endorsed periods of mery in his lifetime, lasting about a week in [facility] with symptoms including elevated mood, impulsivity, distractibility, gra ndiosity, racing thoughts and rapid speech. The patient endorsed paranoia abou t people watching him. The patient's stated the patient oftentimes is paranoid that people are out to get him and that restaurants are poisoning hi s food. Most recently the patient has also become increasingly paranoid to wards his . The patient has also had illusions of elderly females being his grandmother. The patient also endorsed panic attacks lasting from 30 seconds t o a few minutes when he experiences shortness of breath, diaphoresis and intensity of impending doom. These attacks have brought him to become agoraph obic and isolating himself to his mother's house. The patient denied a ny PTSD symptoms or significant abuse. FINAL DIAGNOSES: AXIS I: Schizoaffective disorder, bipolar type, most recent episode depressed, severe, substance abuse disorder, chr onic opiate abuse. AXIS II: None. AXIS III: None. AXIS IV: Unemployed and currently staying with h is mother as he has from his and 3 kids. AXIS V: Global assessment of functioning 48. PRINCIPAL PROCEDURE: Psychopharmacotherapy. SPECIAL PROCEDURES: None. [facility] Discharge Summary PATIENT NAME: VARINDER FISH PHYSICIAN: Aurora estrada MD Admitted: MR NUMBER: [id number] DISCHARGED: 12/08/2016 12:0 0:00 REASON FOR ADMISSION: Mr. Varinder Fish is a 36-year-old male w ith past psychiatric history of schizoaffective disorder and anxiety disorder , who was transferred from [place] [facility] for suicide attempt after cuttin g his wrist. The patient stated that he began experiencing suicidal ideat ion about 10 months ago and that the thoughts were increasing in intensity a nd frequency of incidents where he was actually trying to hurt himself. Ho wever, the patient states that he is unable to follow through with acts co mpletely due to his kids and his family. He was planning on doing it, but he does not remember going to the places where he actually cut his wrist. He s tates that he blacked out during the incident. The patient also endorsed h earing child-like laughter of auditory hallucinations for the past several mon ths in the absence of depressive symptoms at times. The patient also e ndorsed seeing shadows of hallucinations over the past several months as w ell as seeing people such as his grandfather. The patient and his fam caro state that his symptoms began about a year ago when he and his family mo mina from college into [place]. The patient's family also stated that t he symptoms began occurring during his Suboxone decreased over the past 2 ye ars where he went from 36 mg of Suboxone per day to 8 mg of Suboxone per day. The patient and his family believe that the drugs and the Suboxone may have been lasting the symptoms for years. On initial interview, the patient end orsed depressive symptoms of insomnia, anhedonia, guilt and anorexia with jerardo ght loss, decreased concentration, hopelessness, psychomotor agitati on for the past year. Screening is positive for depression. Patient roger so endorsed periods of mery in his lifetime, lasting about a week in duratio n with symptoms including elevated mood, impulsivity, distractibility, gra ndiosity, racing thoughts and rapid speech. The patient endorsed paranoia abou t people watching him. The patient's stated the patient oftentimes is paranoid that people are out to get him and that restaurants are poisoning hi s food. Most recently the patient has also become increasingly paranoid to wards his . The patient has also had illusions of elderly females being his grandmother. The patient also endorsed panic attacks lasting from 30 seconds t o a few minutes when he experiences shortness of breath, diaphoresis and intensity of impending doom. These attacks have brought him to become agoraph obic and isolating himself to his mother's house. The patient denied a ny PTSD symptoms or significant abuse. FINAL DIAGNOSES: AXIS I: Schizoaffective disorder, bipolar type, most recent episode depressed, severe, substance abuse disorder, chr onic opiate abuse. AXIS II: None. AXIS III: None. AXIS IV: Unemployed and currently staying with h is mother as he has from his and 3 kids. AXIS V: Global assessment of functioning 48. PRINCIPAL PROCEDURE: Psychopharmacotherapy. SPECIAL PROCEDURES: None. [facility] Discharge Summary HOSPITAL COURSE: Mr. Fish is a 36-year-old male who wa s admitted to Dr. Contreras's team from 12/05/2016 to 12/09/2016. The patient was on unit restrictions along with elopement and standard PICU precautio ns. Initial starting medications included, 1. Methadone 20 mg one with a taper for pain re lated withdrawal. 2. Trazodone 50 mg at bedtime p.r.n. 3. Vistaril 50 mg q. 6 hours p.r.n. 4. Klonopin 0.5 mg t.i.d. 5. Seroquel 100 mg p.o. q.a.m. and 200 mg p.o. q.p.m. The patient showed improvement on the Seroquel m edication and his vitals remained stable during his methadone taper. The patient attended groups as well as one-to-one therapy medicines for patient during his initial intake but has not required for further evaluation duri ng his stay. The patient stated that his suicidal thoughts decreased over his stay and were no longer present at time of discharge. The patient denied any access to firearms on the outside world and stated that if his thought s return he will call the hotline for help and return. The patient also st ated that he wanted to get into a Methadone Clinic to assist him with his S uboxone withdrawal. The patient stated that all of his auditory and visu al hallucinations that subsided on his Seroquel medication. The patient also reported less anxiety. On day of discharge, the patient was deemed suit able for discharge. The patient had his symptom improvement and no longe r experiencing suicidal ideation, homicidal ideation or any auditory or visual hallucinations. MENTAL STATUS EXAMINATION ON DISCHARGE.: BEHAVIOR: No acute distress. APPEARANCE: In civilian clothes and groomed. COGNITION: Intact. Alert and oriented x4. SPEECH: Regular rate and rhythm. MOOD: "okay." AFFECT: Congruent THOUGHT PROCESSING: Linear. THOUGHT CONTENT: No suicidal ideation. No homici marcus ideation. PERCEPTION: No auditory or visual hallucinations . INSIGHT: Fair. JUDGMENT: Fair. GAIT: Within normal limits. The patient plans to return home and then get ev aluated for chemical dependency via the [facility] on 12/11/19 17 in [place], [place] at 8:00 a.m. LABS: TSH was within normal limits. RPR is nonreactive . [facility] Discharge Summary HOSPITAL COURSE: Mr. Fish is a 36-year-old male who wa s admitted to Dr. Contreras's team from 12/05/2016 to 12/09/2016. The patient was on unit restrictions along with elopement and standard PICU precautio ns. Initial starting medications included, 1. Methadone 20 mg one with a taper for pain re lated withdrawal. 2. Trazodone 50 mg at bedtime p.r.n. 3. Vistaril 50 mg q. 6 hours p.r.n. 4. Klonopin 0.5 mg t.i.d. 5. Seroquel 100 mg p.o. q.a.m. and 200 mg p.o. q.p.m. The patient showed improvement on the Seroquel m edication and his vitals remained stable during his methadone taper. The patient attended groups as well as one-to-one therapy medicines for patient during his initial intake but has not required for further evaluation duri ng his stay. The patient stated that his suicidal thoughts decreased over his stay and were no longer present at time of discharge. The patient denied any access to firearms on the outside world and stated that if his thought s return he will call the hotline for help and return. The patient also st ated that he wanted to get into a Methadone Clinic to assist him with his S uboxone withdrawal. The patient stated that all of his auditory and visu al hallucinations that subsided on his Seroquel medication. The patient also reported less anxiety. On day of discharge, the patient was deemed suit able for discharge. The patient had his symptom improvement and no longe r experiencing suicidal ideation, homicidal ideation or any auditory or visual hallucinations. MENTAL STATUS EXAMINATION ON DISCHARGE.: BEHAVIOR: No acute distress. APPEARANCE: In civilian clothes and groomed. COGNITION: Intact. Alert and oriented x4. SPEECH: Regular rate and rhythm. MOOD: "okay." AFFECT: Congruent THOUGHT PROCESSING: Linear. THOUGHT CONTENT: No suicidal ideation. No homici marcus ideation. PERCEPTION: No auditory or visual hallucinations . INSIGHT: Fair. JUDGMENT: Fair. GAIT: Within normal limits. The patient plans to return home and then get ev aluated for chemical dependency via the [facility] on 12/11/19 in [place], [place] at 8:00 a.m. LABS: TSH was within normal limits. RPR is nonreactive . [facility] Discharge Summary DRUG INTERACTIONS: None. DISCHARGE MEDICATIONS: 1. Seroquel 100 mg q.a.m. p.o. and Seroquel 200 mg q.p.m. p.o. 2. Trazodone 50 mg at bedtime p.r.n. p.o. 3. Klonopin 0.5 mg p.o. b.i.d. DISCHARGE INSTRUCTIONS: Discharge instructions were provided to the jocelyne ent. PHYSICAL ACTIVITIES: As tolerated. DRIVING RESTRICTIONS: Please do not drive while taking trazodone as th is may sedate you. DIET RESTRICTIONS: None. FOLLOWUP: Patient has a chemical dependency evaluation wit [facility] on 12/09/2016 in [place] outpatient or inpatient johnnie abilitation evaluation in [place], [place] at 8 a.m. In addition a followup appointment is scheduled with Dr. Moe on January 13, 2017 in [facility] and the patient has been given specific instructions on how to get to thi s appointment. DISPOSITION: Mr. Fish is currently stable and tolerating all of his medications. The patient's prognosis is fair as he has been tryin g to detox from opioids for the past 7 years. If he is able to be compliant with his psychotropic medications and consistent with his outpatient f ollowup, he should do well. He has also been encouraged to abstain from illi cit drug use and not discontinue any of his psychotropic medications without the guidance of his outpatient psychiatrist. The patient has also be en instructed to continue with the treatment plan and he was discharged on followup with [facility] chemical dependency evaluation tomorrow on 12/10 at 8 o'clock in the morning in [place], [place] [facility]. In addition, the patient has been instructed to continue the treatment plan that gary holland was discharged on until followup at the [facility] on January 13 017 at 1:[address] Moe at the [facility]. The patient has als o met with a social services specialist to obtain appropriate followup paperwork. The impor tance of following through with this plan has been reviewed with the toby peña, with understanding the compliance will be crucial to his recovery. He h as been given information [facility] Discharge Summary DRUG INTERACTIONS: None. DISCHARGE MEDICATIONS: 1. Seroquel 100 mg q.a.m. p.o. and Seroquel 200 mg q.p.m. p.o. 2. Trazodone 50 mg at bedtime p.r.n. p.o. 3. Klonopin 0.5 mg p.o. b.i.d. DISCHARGE INSTRUCTIONS: Discharge instructions were provided to the jocelyne amirah. PHYSICAL ACTIVITIES: As tolerated. DRIVING RESTRICTIONS: Please do not drive while taking trazodone as th is may sedate you. DIET RESTRICTIONS: None. FOLLOWUP: Patient has a chemical dependency evaluation wit [facility] on 12/09/2016 in [facility] outpatient or inpatient johnnie abilitation evaluation in [place], [place] at 8 a.m. In addition a followup appointment is scheduled with Dr. Moe on January 13, 2017 in [facility] and the patient has been given specific instructions on how to get to thi s appointment. DISPOSITION: Mr. Fish is currently stable and tolerating all of his medications. The patient's prognosis is fair as he has been tryin g to detox from opioids for the past 7 years. If he is able to be compliant with his psychotropic medications and consistent with his outpatient f ollowup, he should do well. He has also been encouraged to abstain from illi cit drug use and not discontinue any of his psychotropic medications without the guidance of his outpatient psychiatrist. The patient has also be en instructed to continue with the treatment plan and he was discharged on followup with [facility] chemical dependency evaluation tomorrow on 12/10 at 8 o'clock in the morning in [place], [place] [facility]. In addition, the patient has been instructed to continue the treatment plan that gary holland was discharged on until followup at the [facility] on January 13 017 at 1:[address] Moe at the [facility]. The patient has als o met with a social services specialist to obtain appropriate followup paperwork. The impor tance of following through with this plan has been reviewed with the patien casey, with understanding the compliance will be crucial to his recovery. He h as been given information [facility] Discharge Summary about the [facility] that if therapy is needed. The patient is also being given the [facility] crisis hotline, which is . MD Hawa Mckeon MD IP/TABITHA/PITER/HAN TD: 12/12/2016 01:32 CC:Hawa Contreras MD Electronically Authenticated and Edited by: Aurora Tyler MD On 12/16/2016 10:52 AM CDT [facility] Discharge Summary about the [facility] that if therapy is needed. The patient is also being given the [facility] crisis hotline, which is . MD Hawa Mckeon MD IP/TABITHA/PITER/HAN TD: 12/12/2016 01:32 CC:Hawa Contreras MD Electronically Authenticated and Edited by: Aurora Tyler MD On 12/16/2016 10:52 AM CDT Electronically Authenticated by: Hawa Contreras MD On 12/20/2016 11:25 AM CDT 2016-12-11 20:44:07-00:00 [facility] Psych Eval PATIENT NAME: VARINDER FISH PHYSICIAN: Aurora estrada MD Admitted: MR NUMBER: [id number] DISCHARGED: Psych Eval Patient Name: VARINDER FISH Date of Service: Date of : [birth year] Clinician: Aurora Tyler MD User Field 1: J Encounter Visit: B4J User Field 3: J Referring Hawa Contreras MD Clinician: DATE OF ADMISSION: 12/05/2016 ATTENDING PHYSICIAN: Hawa Contreras MD INFORMANT: The patient/mother, Mary/, Ranjana. Mother' p radha number is [phone]. 's phone number is [phone] . CHIEF COMPLAINT: "I have suicidal ideation and schizoaffectivenes s." HISTORY OF PRESENT ILLNESS: The patient is a 36-year-old male with the past psychiatric history of schizoaffective disorder and anxiety, who was transferred from the [facility] for a suicide attempt by cutting his wrist. The patient stated that he began experiencing suicidal ideation abo ut 10 months ago and the thoughts of increasing intensity and frequency o f incidents where he has actually been trying to hurt himself. However, t he patient states that he is unable to follow through with the acts completel y killing himself because of his kids and his family prevented. He states, "I was planning on doing it, but I do not remember going to be placed where I cut my wrist and so as if I blacked out and woke up with my wrist cut. The p atient endorses hearing child-like laughter for the past several months even in the absence of depressive type symptoms. The patient also endor ses seeing shadows of hallucinations for the past several months as we ll as seeing that people such as his grandfather. The patient's family state t hat his symptoms began about 1 year ago when he and his family moved from [facility] in to [place] his original childhood home. Patient's family also s tated that these symptoms began occurring during that his Suboxone decreas ed over the past few years where he went from 36 mg per day to 8 mg per day . Thus, they believe that the drugs in the Suboxone may have been masking the symptoms for the past several years. On initial interview, the patient endorses depressive symptoms of insomnia, anhedonia, guilt and anore osmany with weight loss, decreased concentration, hopelessness, and psych omotor agitation for the past year. Screening positive for depression. Patient also endorses periods remaining in his lifetime each lasting about a w [place] in duration with symptoms including elevated mood, impulsivity, distractib ility, grandiosity, racing thoughts and rapid speech. The patient endorses paranoia about people watching him. Patient's stated that the pat ient oftentimes is paranoid [facility] Psych Eval PATIENT NAME: VARINDER FISH PHYSICIAN: Aurora estrada MD Admitted: MR NUMBER: [id number] DISCHARGED: Psych Eval Patient Name: VARINDER FISH Date of Service: Date of : 1980 Clinician: Aurora Tyler MD User Field 1: J Encounter Visit: B4J User Field 3: J Referring Hawa Contreras MD Clinician: DATE OF ADMISSION: 12/05/2016 ATTENDING PHYSICIAN: Hawa Contreras MD INFORMANT: The patient/mother, Mary/, Ranjana. Mother' p radha number is [phone]. 's phone number is [phone] . CHIEF COMPLAINT: "I have suicidal ideation and schizoaffectivenes s." HISTORY OF PRESENT ILLNESS: The patient is a 36-year-old male with the past psychiatric history of schizoaffective disorder and anxiety, who was transferred from the [place] [facility] for a suicide attempt by cutting his wrist. The patient stated that he began experiencing suicidal ideation abo ut 10 months ago and the thoughts of increasing intensity and frequency o f incidents where he has actually been trying to hurt himself. However, t he patient states that he is unable to follow through with the acts completel y killing himself because of his kids and his family prevented. He states, "I was planning on doing it, but I do not remember going to be placed where I cut my wrist and so as if I blacked out and woke up with my wrist cut. The p atient endorses hearing child-like laughter for the past several months even in the absence of depressive type symptoms. The patient also endor ses seeing shadows of hallucinations for the past several months as we ll as seeing that people such as his grandfather. The patient's family state t hat his symptoms began about 1 year ago when he and his family moved from [facility] in to [place] his original childhood home. Patient's family also s tated that these symptoms began occurring during that his Suboxone decreas ed over the past few years where he went from 36 mg per day to 8 mg per day . Thus, they believe that the drugs in the Suboxone may have been masking the symptoms for the past several years. On initial interview, the patient endorses depressive symptoms of insomnia, anhedonia, guilt and anore osmany with weight loss, decreased concentration, hopelessness, and psych omotor agitation for the past year. Screening positive for depression. Patient also endorses periods remaining in his lifetime each lasting about a w [place] in duration with symptoms including elevated mood, impulsivity, distractib ility, grandiosity, racing thoughts and rapid speech. The patient endorses paranoia about people watching him. Patient's stated that the pat ient oftentimes is paranoid [facility] Psych Eval PATIENT NAME: VARINDER FISH PHYSICIAN: Aurora estrada MD Admitted: MR NUMBER: [id number] DISCHARGED: Psych Eval Patient Name: VARINDER FISH Date of Service: Date of : 1980 Clinician: Aurora Tyler MD User Field 1: J Encounter Visit: B4J User Field 3: J Referring Hawa Contreras MD Clinician: DATE OF ADMISSION: 12/05/2016 ATTENDING PHYSICIAN: Hawa oCntreras MD INFORMANT: The patient/mother, Mary/, Ranjana. Mother' p radha number is [phone]. 's phone number is [phone] . CHIEF COMPLAINT: "I have suicidal ideation and schizoaffectivenes s." HISTORY OF PRESENT ILLNESS: The patient is a 36-year-old male with the past psychiatric history of schizoaffective disorder and anxiety, who was transferred from the [place] [facility] for a suicide attempt by cutting his wrist. The patient stated that he began experiencing suicidal ideation abo ut 10 months ago and the thoughts of increasing intensity and frequency o f incidents where he has actually been trying to hurt himself. However, t he patient states that he is unable to follow through with the acts completel y killing himself because of his kids and his family prevented. He states, "I was planning on doing it, but I do not remember going to be placed where I cut my wrist and so as if I blacked out and woke up with my wrist cut. The p atient endorses hearing child-like laughter for the past several months even in the absence of depressive type symptoms. The patient also endor ses seeing shadows of hallucinations for the past several months as we ll as seeing that people such as his grandfather. The patient's family state t hat his symptoms began about 1 year ago when he and his family moved from [facility] in to [place] his original childhood home. Patient's family also s tated that these symptoms began occurring during that his Suboxone decreas ed over the past few years where he went from 36 mg per day to 8 mg per day . Thus, they believe that the drugs in the Suboxone may have been masking the symptoms for the past several years. On initial interview, the patient endorses depressive symptoms of insomnia, anhedonia, guilt and anore osmany with weight loss, decreased concentration, hopelessness, and psych omotor agitation for the past year. Screening positive for depression. Patient also endorses periods remaining in his lifetime each lasting about a w [place] in duration with symptoms including elevated mood, impulsivity, distractib ility, grandiosity, racing thoughts and rapid speech. The patient endorses paranoia about people watching him. Patient's stated that the pat ient oftentimes is paranoid Patient Name: VARINDER FISH [id number] that people are out to get him and restaurants a re poisoning his food. Most recently, she states that the patient has become increasingly paranoid of her. The patient also has delusions or illusions of elderly females being his grandmother. Patient also endorsed panic at tacks lasting from 30 seconds to a few minutes where he experiences sh ortness of breath, diaphoresis and intense fear of impending doom. These attacks have led him to become agoraphobic and isolating himself to h is house with his mother. The patient denies any PTSD symptoms or signific ant abuse. PAST PSYCHIATRIC HISTORY: The patient has had three previous suicide attem pts, one, 13 years ago with self cutting of his wrist, one , one month ago w here he ingested 30 pills of [place] and cut his wrist and ended up at the [facility] inpatient unit. Diagnosis there was bipolar diso rder and discharged on the second generation antipsychotic rezultatia. Jocelyne macario began self-mutilation behavior after his discharge and again returned to the [facility] for a second admission during which he wa s diagnosed with schizoaffective disorder, discharged with the ne w medication. He also has a history of a diagnosis of depression made at the age, in which he was in 6th grade and at that time they put him on antidepre ssant, but he is unsure of the name and he did not stay on that medication for long. He states that his current PCP has been prescribing him Celexa 40 m g daily for the past 15 years as well as BuSpar 10 mg for the past year. The p atient has also struggled with severe polysubstance abuse disorder with martin bstance use including alcohol, opioids, stimulants, and hallucinogenic s. The patient is currently taking Suboxone 8 mg maintenance dosage. He has been on Suboxone for the past 6 to 8 years. The patient most recently carlos t to rehabilitation at the [facility] in [place], as well as the [facility] in [place]. His most recent stay was in February 2016. Patient's stated that he has self-titrated himself over the past years from taking an avera ge of 36 mg of Suboxone daily to an average of 8 mg of Suboxone for the past 2 months daily. FAMILY PSYCHIATRIC HISTORY: The patient has a positive family psychiatric hi story of suicide attempts in his uncle, mother and brother, as well as each o f those individuals having severe addiction issues. PAST MEDICAL HISTORY: Includes a foot surgery in his early 20s, which led to his opioid addiction. In addition, the patient states that he has seiz ures when attempting to detoxing himself from Suboxone in the past. The patient denies any head injuries. REVIEW OF SYSTEMS: HEENT: Positive for headache and blurry vision, but the patient states that the blurry vision is his baseline. CARDIOVASCULA R: No chest pain. RESPIRATORY: No shortness of breath. GASTROINTES TINAL: The patient endorses Patient Name: VARINDER FISH [id number] that people are out to get him and restaurants a re poisoning his food. Most recently, she states that the patient has become increasingly paranoid of her. The patient also has delusions or illusions of elderly females being his grandmother. Patient also endorsed panic at tacks lasting from 30 seconds to a few minutes where he experiences sh ortness of breath, diaphoresis and intense fear of impending doom. These attacks have led him to become agoraphobic and isolating himself to h is house with his mother. The patient denies any PTSD symptoms or signific ant abuse. PAST PSYCHIATRIC HISTORY: The patient has had three previous suicide attem pts, one, 13 years ago with self cutting of his wrist, one , one month ago w here he ingested 30 pills of [place] and cut his wrist and ended up at the [facility] inpatient unit. Diagnosis there was bipolar diso rder and discharged on the second generation antipsychotic rezultatia. Jocelyne ent began self-mutilation behavior after his discharge and again returned to the [facility] for a second admission during which he wa s diagnosed with schizoaffective disorder, discharged with the ne w medication. He also has a history of a diagnosis of depression made at the age, in which he was in 6th grade and at that time they put him on antidepre ssant, but he is unsure of the name and he did not stay on that medication for long. He states that his current PCP has been prescribing him Celexa 40 m g daily for the past 15 years as well as BuSpar 10 mg for the past year. The p atient has also struggled with severe polysubstance abuse disorder with martin bstance use including alcohol, opioids, stimulants, and hallucinogenic s. The patient is currently taking Suboxone 8 mg maintenance dosage. He has been on Suboxone for the past 6 to 8 years. The patient most recently carlos t to rehabilitation at the [facility] in [place], as well as the [facility] in [place]. His most recent stay was in February 2016. Patient's stated that he has self-titrated himself over the past years from taking an avera ge of 36 mg of Suboxone daily to an average of 8 mg of Suboxone for the past 2 months daily. FAMILY PSYCHIATRIC HISTORY: The patient has a positive family psychiatric hi story of suicide attempts in his uncle, mother and brother, as well as each o f those individuals having severe addiction issues. PAST MEDICAL HISTORY: Includes a foot surgery in his early 20s, which led to his opioid addiction. In addition, the patient states that he has seiz ures when attempting to detoxing himself from Suboxone in the past. The patient denies any head injuries. REVIEW OF SYSTEMS: HEENT: Positive for headache and blurry vision, but the patient states that the blurry vision is his baseline. CARDIOVASCULA R: No chest pain. RESPIRATORY: No shortness of breath. GASTROINTES TINAL: The patient endorses Patient Name: VARINDER FISH [id number] that people are out to get him and restaurants a re poisoning his food. Most recently, she states that the patient has become increasingly paranoid of her. The patient also has delusions or illusions of elderly females being his grandmother. Patient also endorsed panic at tacks lasting from 30 seconds to a few minutes where he experiences sh ortness of breath, diaphoresis and intense fear of impending doom. These attacks have led him to become agoraphobic and isolating himself to h is house with his mother. The patient denies any PTSD symptoms or signific ant abuse. PAST PSYCHIATRIC HISTORY: The patient has had three previous suicide attem pts, one, 13 years ago with self cutting of his wrist, one , one month ago w here he ingested 30 pills of [place] and cut his wrist and ended up at the [facility] inpatient unit. Diagnosis there was bipolar diso rder and discharged on the second generation antipsychotic rezultatia. Jocelyne ent began self-mutilation behavior after his discharge and again returned to the [facility] for a second admission during which he wa s diagnosed with schizoaffective disorder, discharged with the ne w medication. He also has a history of a diagnosis of depression made at the age, in which he was in 6th grade and at that time they put him on antidepre ssant, but he is unsure of the name and he did not stay on that medication for long. He states that his current PCP has been prescribing him Celexa 40 m g daily for the past 15 years as well as BuSpar 10 mg for the past year. [facility] with severe polysubstance abuse disorder with martin bstance use including alcohol, opioids, stimulants, and hallucinogenic s. The patient is currently taking Suboxone 8 mg maintenance dosage. He has been on Suboxone for the past 6 to 8 years. The patient most recently carlos t to rehabilitation at the [facility] in [place], as well as the [facility] in [place]. His most recent stay was in February 2016. Patient's stated that he has self-titrated himself over the past years from taking an avera ge of 36 mg of Suboxone daily to an average of 8 mg of Suboxone for the past 2 months daily. FAMILY PSYCHIATRIC HISTORY: The patient has a positive family psychiatric hi story of suicide attempts in his uncle, mother and brother, as well as each o f those individuals having severe addiction issues. PAST MEDICAL HISTORY: Includes a foot surgery in his early 20s, which led to his opioid addiction. In addition, the patient states that he has seiz ures when attempting to detoxing himself from Suboxone in the past. The patient denies any head injuries. REVIEW OF SYSTEMS: HEENT: Positive for headache and blurry vision, but the patient states that the blurry vision is his baseline. CARDIOVASCULA R: No chest pain. RESPIRATORY: No shortness of breath. GASTROINTES TINAL: The patient endorses Patient Name: VARINDER FISH [id number] abdominal pain. GENITOURINARY: The patient denie s any pain on urination. MUSCULOSKELETAL: The patient initially denied mu scle aches, but upon reinterview with attending the patient endorsed pain in his back. ENDOCRINOLOGY: No diabetes or thyroid issues. NE UROLOGIC: No numbness or tingling reported. SKIN: No rashes. PSYCHIATRIC: The patient hears childlike voices laughing in addition to seeing shadows in his vision. The patient also states that he is actively suicidal . HOME MEDICATIONS: Include, 1. Celexa 40. 2. BuSpar 10. 3. Suboxone 8 mg. 4. Clonazepam 0.5 mg t.i.d. ALLERGIES: NO KNOWN DRUG ALLERGIES. SOCIAL HISTORY: Household, the patient is currently living with his mother as he is from his and his 3 children. His mother talisha es in [place]. Employment, the patient is currently une mployed for most of his life. 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 Education, the patient does have some college education. Le gal, the patient has been jailed a few times for DUI, possession of mariju iman and minor in possession. SUBSTANCE ABUSE: The patient had some heavy substance abuse in hi s 20s with alcohol, opioids, heroin, oxycodone, [place] pills, Speed, LSD, PCP, ecstasy and marijuana. The patient states his last heavy alcohol use was 5 years ago; however, now he only drinks occasionally and his last drink was 1 month ago and was a 6 pack of beer. Marijuana use, last use 5 years ago. Be nzo current user for the past 15 years due to severe anxiety. Opioids, last us e one month ago with overdosing on 30 pills, [place]. Speed, crystal me th, last use 6 years ago. PCP, LSD, and ecstasy last use 10 years ago. The patient is a current tobacco smoker using 1-1/2 packs of tobacco a da y. PHYSICAL EXAMINATION: VITAL SIGNS: Temperature 97.7, pulse 68, respira tory rate 18, blood pressure 120/78. MENTAL STATUS EXAMINATION: GENERAL: The patient appears anxious, is in bed with scrub. COGNITION: Intact. Alert and oriented x4. SPEECH: Regular rate and rhythm. MOOD: "Down." AFFECT: Full. THOUGHT PROCESS: Linear. Patient Name: VARINDER FISH [id number] abdominal pain. GENITOURINARY: The patient denie s any pain on urination. MUSCULOSKELETAL: The patient initially denied mu scle aches, but upon reinterview with attending the patient endorsed pain in his back. ENDOCRINOLOGY: No diabetes or thyroid issues. NE UROLOGIC: No numbness or tingling reported. SKIN: No rashes. PSYCHIATRIC: The patient hears childlike voices laughing in addition to seeing shadows in his vision. The patient also states that he is actively suicidal . HOME MEDICATIONS: Include, 1. Celexa 40. 2. BuSpar 10. 3. Suboxone 8 mg. 4. Clonazepam 0.5 mg t.i.d. ALLERGIES: NO KNOWN DRUG ALLERGIES. SOCIAL HISTORY: Household, the patient is currently living with his mother as he is from his and his 3 children. His mother talisha es in [place]. Employment, the patient is currently une mployed for most of his life. 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 Education, the patient does have some college education. Le gal, the patient has been jailed a few times for DUI, possession of mariju iman and minor in possession. SUBSTANCE ABUSE: The patient had some heavy substance abuse in hi s 20s with alcohol, opioids, heroin, oxycodone, [place] pills, Speed, LSD, PCP, ecstasy and marijuana. The patient states his last heavy alcohol use was 5 years ago; however, now he only drinks occasionally and his last drink was 1 month ago and was a 6 pack of beer. Marijuana use, last use 5 years ago. Be nzo current user for the past 15 years due to severe anxiety. Opioids, last us e one month ago with overdosing on 30 pills, [place]. Speed, crystal me th, last use 6 years ago. PCP, LSD, and ecstasy last use 10 years ago. The patient is a current tobacco smoker using 1-1/2 packs of tobacco a da y. PHYSICAL EXAMINATION: VITAL SIGNS: Temperature 97.7, pulse 68, respira tory rate 18, blood pressure 120/78. MENTAL STATUS EXAMINATION: GENERAL: The patient appears anxious, is in bed with scrub. COGNITION: Intact. Alert and oriented x4. SPEECH: Regular rate and rhythm. MOOD: "Down." AFFECT: Full. THOUGHT PROCESS: Linear. Patient Name: VARINDER FISH [id number] abdominal pain. GENITOURINARY: The patient denie s any pain on urination. MUSCULOSKELETAL: The patient initially denied mu scle aches, but upon reinterview with attending the patient endorsed pain in his back. ENDOCRINOLOGY: No diabetes or thyroid issues. NE UROLOGIC: No numbness or tingling reported. SKIN: No rashes. PSYCHIATRIC: The patient hears childlike voices laughing in addition to seeing shadows in his vision. The patient also states that he is actively suicidal . HOME MEDICATIONS: Include, 1. Celexa 40. 2. BuSpar 10. 3. Suboxone 8 mg. 4. Clonazepam 0.5 mg t.i.d. ALLERGIES: NO KNOWN DRUG ALLERGIES. SOCIAL HISTORY: Household, the patient is currently living with his mother as he is from his and his 3 children. His mother talisha es in [place]. Employment, the patient is currently une mployed for most of his life. 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 Education, the patient does have some college education. Le gal, the patient has been jailed a few times for DUI, possession of mariju iman and minor in possession. SUBSTANCE ABUSE: The patient had some heavy substance abuse in hi s 20s with alcohol, opioids, heroin, oxycodone, [place] pills, Speed, LSD, PCP, ecstasy and marijuana. The patient states his last heavy alcohol use was 5 years ago; however, now he only drinks occasionally and his last drink was 1 month ago and was a 6 pack of beer. Marijuana use, last use 5 years ago. Be nzo current user for the past 15 years due to severe anxiety. Opioids, last us e one month ago with overdosing on 30 pills, [place]. Speed, crystal me th, last use 6 years ago. PCP, LSD, and ecstasy last use 10 years ago. The patient is a current tobacco smoker using 1-1/2 packs of tobacco a da y. PHYSICAL EXAMINATION: VITAL SIGNS: Temperature 97.7, pulse 68, respira tory rate 18, blood pressure 120/78. MENTAL STATUS EXAMINATION: GENERAL: The patient appears anxious, is in bed with scrub. COGNITION: Intact. Alert and oriented x4. SPEECH: Regular rate and rhythm. MOOD: "Down." AFFECT: Full. THOUGHT PROCESS: Linear. Patient Name: VARINDER FISH [id number] THOUGHT CONTENT: Positive for suicidal ideation, negative for homicidal ideation. PERCEPTIONS: Positive for auditory and visual womack llucinations. INSIGHT: Fair. JUDGMENT: Fair. MEMORY TO RECENT AND REMOTE EVENTS: Intact. INTELLIGENCE: Average. GAIT: Within normal limits. LABS: RPR nonreactive. TSH is pending. ASSESSMENT: Predisposing factors are genetics, exposure to v iolence. Precipitating factors include drug use, medicati ons taken and relationship loss, stress and major life events. Perpetuating factors include drugs and treatment refractory illness. Protective factors include good nutrition and ac tive lifestyle, optimism and flexibility at his treatment plan, good support network with his mom and , adequate housing. DIAGNOSTIC IMPRESSION: AXIS I: Schizoaffective disorder, bipolar type, most recent episode depressed, substance abuse disorder with opioids currently on 8 mg of Suboxone maintenance. AXIS II: Deferred. AXIS III: None. AXIS IV: Unemployed and from his and kids, living with his mother in [place], most recently moved from [place] in about a year ago. AXIS V: Global Assessment of Functioning is 48. The patient will be placed on Dr. Contreras's [facility] Inpatient Unit and placed on unit restrictions along with elopement and standard PICU precautions. INITIAL STARTING MEDICATIONS: Include, 1. Methadone 20 mg once with a taper for pain. 2. Trazodone 50 mg at bedtime p.r.n. 3. Vistaril 50 mg q. 6 hours p.r.n. 4. Klonopin 0.5 mg t.i.d. 5. Seroquel 100 mg p.o. q.a.m. and 200 mg p.o. a t bedtime. The patient was also encouraged to participate i n group therapy sessions and to be an active participant in his therapy here. Collateral calls were made to the patient's , as well as the patient's mother. Internal medicine will see the patient on admission and if additio nal consults are needed. The Patient Name: VARINDER FISH [id number] THOUGHT CONTENT: Positive for suicidal ideation, negative for homicidal ideation. PERCEPTIONS: Positive for auditory and visual womack llucinations. INSIGHT: Fair. JUDGMENT: Fair. MEMORY TO RECENT AND REMOTE EVENTS: Intact. INTELLIGENCE: Average. GAIT: Within normal limits. LABS: RPR nonreactive. TSH is pending. ASSESSMENT: Predisposing factors are genetics, exposure to v iolence. Precipitating factors include drug use, medicati ons taken and relationship loss, stress and major life events. Perpetuating factors include drugs and treatment refractory illness. Protective factors include good nutrition and ac tive lifestyle, optimism and flexibility at his treatment plan, good support network with his mom and , adequate housing. DIAGNOSTIC IMPRESSION: AXIS I: Schizoaffective disorder, bipolar type, most recent episode depressed, substance abuse disorder with opioids currently on 8 mg of Suboxone maintenance. AXIS II: Deferred. AXIS III: None. AXIS IV: Unemployed and from his and kids, living with his mother in [place], most recently moved from [place] in about a year ago. AXIS V: Global Assessment of Functioning is 48. The patient will be placed on Dr. Contreras's [facility] Inpatient Unit and placed on unit restrictions along with elopement and standard PICU precautions. INITIAL STARTING MEDICATIONS: Include, 1. Methadone 20 mg once with a taper for pain. 2. Trazodone 50 mg at bedtime p.r.n. 3. Vistaril 50 mg q. 6 hours p.r.n. 4. Klonopin 0.5 mg t.i.d. 5. Seroquel 100 mg p.o. q.a.m. and 200 mg p.o. a t bedtime. The patient was also encouraged to participate i n group therapy sessions and to be an active participant in his therapy here. Collateral calls were made to the patient's , as well as the patient's mother. Internal medicine will see the patient on admission and if additio nal consults are needed. The Patient Name: VARINDER FISH [id number] THOUGHT CONTENT: Positive for suicidal ideation, negative for homicidal ideation. PERCEPTIONS: Positive for auditory and visual womack llucinations. INSIGHT: Fair. JUDGMENT: Fair. MEMORY TO RECENT AND REMOTE EVENTS: Intact. INTELLIGENCE: Average. GAIT: Within normal limits. LABS: RPR nonreactive. TSH is pending. ASSESSMENT: Predisposing factors are genetics, exposure to v iolence. Precipitating factors include drug use, medicati ons taken and relationship loss, stress and major life events. Perpetuating factors include drugs and treatment refractory illness. Protective factors include good nutrition and ac tive lifestyle, optimism and flexibility at his treatment plan, good support network with his mom and , adequate housing. DIAGNOSTIC IMPRESSION: AXIS I: Schizoaffective disorder, bipolar type, most recent episode depressed, substance abuse disorder with opioids currently on 8 mg of Suboxone maintenance. AXIS II: Deferred. AXIS III: None. AXIS IV: Unemployed and from his and kids, living with his mother in [place], most recently moved from [place] in about a year ago. AXIS V: Global Assessment of Functioning is 48. The patient will be placed on Dr. Contreras's [facility] Inpatient Unit and placed on unit restrictions along with elopement and standard PICU precautions. INITIAL STARTING MEDICATIONS: Include, 1. Methadone 20 mg once with a taper for pain. 2. Trazodone 50 mg at bedtime p.r.n. 3. Vistaril 50 mg q. 6 hours p.r.n. 4. Klonopin 0.5 mg t.i.d. 5. Seroquel 100 mg p.o. q.a.m. and 200 mg p.o. a t bedtime. The patient was also encouraged to participate i n group therapy sessions and to be an active participant in his therapy here. Collateral calls were made to the patient's , as well as the patient's mother. Internal medicine will see the patient on admission and if additio nal consults are needed. The Patient Name: VARINDER FISH [id number] patient will be monitored daily by our inpatient psychiatric team. MD Hawa Mckeon MD Date Dictated: 12/06/2016 Date 12/06/2016 Transcribed: IP/GOP/HILARIO cc:Hawa Contreras MD Electronically Authenticated and Edited by: Aurora Tyler MD On 12/11/2016 08:44 PM CDT Patient Name: VARINDER FISH [id number] patient will be monitored daily by our inpatient psychiatric team. MD Hawa Mckeon MD Date Dictated: 12/06/2016 Date 12/06/2016 Transcribed: IP/ZUCHEM/VIDA Diagnostics cc:Hawa Contreras MD Electronically Authenticated and Edited by: Aurora Tyler MD On 12/11/2016 08:44 PM CDT Electronically Authenticated by: Hawa Contreras MD On 12/15/2016 06:08 PM CDT Patient Name: VARINDER FISH [id number] patient will be monitored daily by our inpatient psychiatric team. MD Hawa Mckeon MD Date Dictated: 12/06/2016 Date 12/06/2016 Transcribed: IP/ZUCHEM/VIDA Diagnostics cc:Hawa Contreras MD Electronically Authenticated and Edited by: Aurora Tyler MD On 12/11/2016 08:44 PM CDT Electronically Authenticated by: Hawa Contreras MD On 12/15/2016 06:08 PM CDT Electronically Authenticated by: Hawa Contreras MD On 12/15/2016 06:08 PM CDT 2016-12-08 13:57:25-00:00 [facility] History and Physical PATIENT NAME: VARINDER FISH PHYSICIAN: Edil Farr Admitted: MR NUMBER: [id number] DISCHARGED: DIRECT HISTORY AND PHYSICAL CHIEF COMPLAINT: Suicidal ideation. HISTORY OF PRESENT ILLNESS: This is a young male with past medical history of recent diagnosis of schizoaffective and bipolar disorder, who pre sented to the ER as he has been having suicidal ideation. The patient's mot her stated in the ER that he has been missing for a few hours and returned wi th razor blade cuts on his arm. The patient stated that he wanted to kill h imself. He was recently discharged from the [facility] in [facility]. The patient is still complaining of suicidal ideation. Denies any bradford icidal ideation. Denies any auditory or visual hallucinations. REVIEW OF SYSTEMS: He denies any headache, fever or chills. The pat ient said that he has chronic face pain. Previously had workup to rule out any cancers on his face. Denies any numbness or weakness. Denies an y dysuria or hematuria. Denies any GI or symptoms. Other review of sy stem is negative. PAST MEDICAL HISTORY: Recent diagnosis of schizoaffective and bipolar disorder. Denies any diabetes or hypertension. 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 MEDICATIONS: He takes, 1. Celexa. 2. Suboxone. 3. Klonopin. 4. BuSpar. ALLERGIES: NO KNOWN DRUG ALLERGIES. SOCIAL HISTORY: The patient is . He smokes about 2 packs per day. He has 3 children. Denies alcohol or drug use. He is not working. He finished his High School. FAMILY HISTORY: Denies any premature coronary artery disease or diabetes. PHYSICAL EXAMINATION: GENERAL: This is a young, male who is awake, alert, in no acute [facility] History and Physical PATIENT NAME: VARINDER FISH PHYSICIAN: Edil Farr Admitted: MR NUMBER: [id number] DISCHARGED: DIRECT HISTORY AND PHYSICAL CHIEF COMPLAINT: Suicidal ideation. HISTORY OF PRESENT ILLNESS: This is a young male with past medical history of recent diagnosis of schizoaffective and bipolar disorder, who pre sented to the ER as he has been having suicidal ideation. The patient's mot her stated in the ER that he has been missing for a few hours and returned wi th razor blade cuts on his arm. The patient stated that he wanted to kill h imself. He was recently discharged from the Behavioral Health Unit in [facility]. The patient is still complaining of suicidal ideation. Denies any bradford icidal ideation. Denies any auditory or visual hallucinations. REVIEW OF SYSTEMS: He denies any headache, fever or chills. The pat ient said that he has chronic face pain. Previously had workup to rule out any cancers on his face. Denies any numbness or weakness. Denies an y dysuria or hematuria. Denies any GI or symptoms. Other review of sy stem is negative. PAST MEDICAL HISTORY: Recent diagnosis of schizoaffective and bipolar disorder. Denies any diabetes or hypertension. 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 MEDICATIONS: He takes, 1. Celexa. 2. Suboxone. 3. Klonopin. 4. BuSpar. ALLERGIES: NO KNOWN DRUG ALLERGIES. SOCIAL HISTORY: The patient is . He smokes about 2 packs per day. He has 3 children. Denies alcohol or drug use. He is not working. He finished his High School. FAMILY HISTORY: Denies any premature coronary artery disease or diabetes. PHYSICAL EXAMINATION: GENERAL: This is a young, male who is awake, alert, in no acute Patient Name: VARINDER FISH [id number] distress. VITAL SIGNS: He is afebrile, heart rate 64, bloo d pressure is 127/65. HEENT: Normocephalic, atraumatic. No icterus. No pallor. No pharyngeal congestion. The patient has poor dental hygiene. NECK: Supple. No JVD. No lymphadenopathy. LUNGS: Clear to auscultation. No wheezing or rho nchi. CARDIOVASCULAR: S1, S2, regular rate and rhythm. ABDOMEN: Soft, nontender, nondistended. No hepat omegaly. EXTREMITIES: No cyanosis , congestion or edema. CINDER BLOCK [employer]KER: Oriented x3. Extraocular muscles intact. No facial droop. No pronator drift. SKIN: He has abrasions on his right forearm. LABORATORY DATA: RPR is nonreactive. ASSESSMENT: 1. Schizoaffective and bipolar disorder, now wit h suicidal ideation. 2. Mild abrasive cuts on his right arm. PLAN: At this time, the patient is being admitted to p sychiatric unit. I will defer management of his psych symptoms with Dr. Contreras. We will continue local wound care on the right arm. The patient i s ambulatory and will not require any DVT prophylaxis. MD ZACKARY Preston TD: 12/06/2016 13:51 Patient Name: VARINDER FISH [id number] distress. VITAL SIGNS: He is afebrile, heart rate 64, bloo d pressure is 127/65. HEENT: Normocephalic, atraumatic. No icterus. No pallor. No pharyngeal congestion. The patient has poor dental hygiene. NECK: Supple. No JVD. No lymphadenopathy. LUNGS: Clear to auscultation. No wheezing or rho nchi. CARDIOVASCULAR: S1, S2, regular rate and rhythm. ABDOMEN: Soft, nontender, nondistended. No hepat omegaly. EXTREMITIES: No cyanosis , congestion or edema. CINDER BLOCK MAKER: Oriented x3. Extraocular muscles intact. No facial droop. No pronator drift. SKIN: He has abrasions on his right forearm. LABORATORY DATA: RPR is nonreactive. ASSESSMENT: 1. Schizoaffective and bipolar disorder, now wit h suicidal ideation. 2. Mild abrasive cuts on his right arm. PLAN: At this time, the patient is being admitted to p sychiatric unit. I will defer management of his psych symptoms with Dr. Contreras. We will continue local wound care on the right arm. The patient i s ambulatory and will not require any DVT prophylaxis. MD ZACKARY Preston TD: 12/06/2016 13:51 Electronically Authenticated by: Edil Gutierrez MD On 12/08/2016 01:57 PM CDT
[2022-08-12] MEDS ORDERED: ONDANSETRON 4 MG/2 ML VIAL ONE (23:47)
[2022-08-12] MEDS ORDERED: PROMETHAZINE INJ 25 MG/ML AMP ONE (23:47)
[2022-08-12] MEDS ORDERED: GLUCAGON 1 MG/VIAL ONE (23:48)
[2022-08-12] MEDS ORDERED: CALCIUM GLUCONATE 1 GM IVPB 2 GM/100 ML BAG IV ONE (23:48)
[2022-08-12] MEDS ORDERED: NA CHLORIDE 0.9% 2,000 ML ONE (23:48)
[2022-08-12] MEDS ORDERED: activated charcoaL 25 GM/120 ML TUBE ONE (23:50)
[2022-08-12 23:55] LABS: Absolute Lymphocytes (CBC) 3.1 K/uL (0.7-4.9); Hematocrit 45.8 % (39.6-49.0); MCV 91.8 fL (80-100); MPV 8.5 fL (7.6-11.3); RBC Red Blood Cell Count 4.99 M/uL (4.33-5.43)
[2022-08-13 00:06] LABS: ALT/SGPT 15 U/L (16-61); Albumin 3.8 g/dL (3.4-5.0); Alkaline Phosphatase 84 U/L (45-117); BUN Blood Urea Nitrogen 4 mg/dL (7-18); Bicarbonate 19 mEq/L (21-32); Bilirubin Direct 0.1 mg/dL (0-0.2); Bilirubin Indirect, Calculated 0.6 mg/dL (0.2-0.8); Bilirubin Total 0.7 mg/dL (0.2-1.0); Glomerular Filtration Rate 64 ml/min (=/>90); Glucose Level 130 mg/dL (74-106); Protein, Total 7.5 g/dL (6.4-8.2); Sodium Level 135 mEq/L (136-145)
[2022-08-13 00:14] LABS: AST/SGOT 17 U/L (15-37); Potassium 3.1 mEq/L (3.5-5.1)
[2022-08-13 01:15] LABS: Specific Gravity 1.011 (1.005-1.030); Urine Bacteria None Seen /HPF (<20); Urine Bilirubin NEGATIVE (Negative); Urine Blood Negative (Negative); Urine Clarity Clear (Clear); Urine Color Light-Yellow (Yellow); Urine Glucose NEGATIVE (Negative); Urine Protein TRACE (Negative); Urine RBC None Seen /HPF (None Seen); Urine Urobilinogen Normal (Normal)
[2022-08-13 01:17] LABS: Barbiturates NEGATIVE (NEGATIVE); Benzodiazepines NEGATIVE (NEGATIVE); Cocaine NEGATIVE (NEGATIVE); METHAMPHETAM NEGATIVE (NEGATIVE); Methadone NEGATIVE (NEGATIVE); Opiates NEGATIVE (NEGATIVE); Phencyclidine NEGATIVE (NEGATIVE); THC Cannibis NEGATIVE (NEGATIVE)
[2022-08-13 01:23] LABS: Protime INR 1.03
[2022-08-13] MEDS ORDERED: D5 0.45 NS 1,000 ML IV ONE (01:47)
[2022-08-13] MEDS ORDERED: KETAMINE HCL IN 0.9 % NACL 50 MG/5 ML SYRINGE IV ONE (05:30)
--- NOTE | 2022-08-13 05:33 | P.HP ---
Certification for Inpatient Patient admitted to: Inpatient With expected LOS: >2 Midnights Patient will require the following post-hospital care: None Practitioner: I am a practitioner with admitting privileges, knowledge of patient current condition, hospital course, and medical plan of care. Services: Services provided to patient in accordance with Admission requirements found in Title 42 Section 412.3 of the Code of Federal Regulations Patient History Date of Service: 08/13/22 Reason for admission: Intentional overdose History of Present Illness: 42-year-old male with history of anxiety, bipolar disorder, depression, paranoid schizophrenia presents emergency department after an intentional overdose last night. He presented to the ER around 2300, it is unclear what time he ingested the medications, it was reported that patient took thirty 10 mg amlodipine tablets, up to 90 losartan 50 mg tablets, Keppra 500 mg up to 180 tablets. Please control was called Case #[id number] concern primarily for calcium channel titi overdose recommended as needed atropine, calcium, high-dose insulin/D10, Levophed if necessary. Central line placed in emergency department. Patient has remained normotensive for the last 6 to 7 hours during his stay in the emergency department, he is altered, drowsy, oriented x1 at this time moving all extremities. ED provider wishes to admit for suicide attempt, intentional overdose. Will need to be monitored in the ICU given overdose. Allergies No Known Allergies Allergy (Unverified 02/28/12 17:13) - Past Medical/Surgical History -: Anxiety/BPD/schizophrenia -: Unable to obtain Psychosocial/ Personal History: Unable to obtain - Social History Place of Residence: Home Review of Systems is unable to be obtained Physical Examination - Physical Exam General: Alert, In no apparent distress, Oriented x1, Other (Drowsy) HEENT: Atraumatic, PERRLA, Mucous membr. moist/pink, EOMI, Sclerae nonicteric Neck: Supple, 2+ carotid pulse no bruit, No LAD, Without JVD or thyroid abnormality Respiratory: Clear to auscultation bilaterally, Normal air movement Cardiovascular: Regular rate/rhythm, Normal S1 S2 Gastrointestinal: Normal bowel sounds, No tenderness Musculoskeletal: No tenderness Integumentary: No rashes Neurological: Normal gait, Normal strength at 5/5 x4 extr, Normal tone, Abnormal speech (Speech slowed, slurred) - Studies Laboratory Data (last 24 hrs) 08/13/22 00:31: PT 11.3, INR 1.03, APTT 24.6 08/12/22 23:20: WBC 10.90, Hgb 16.0, Hct 45.8, Plt Count 343 08/12/22 23:20: Sodium 135 L, Potassium 3.1 L, BUN 4 L, Creatinine 1.42 H, Glucose 130 H, Total Bilirubin 0.7, AST 17, ALT 15 L, Alkaline Phosphatase 84 Assessment and Plan - Plan Assessment: Intentional overdose-suicidal ideation/suicide attempt Hypokalemia History of anxiety/BPD/schizophrenia Plan: Intentional overdose-suicidal ideation/suicide attempt Patient reportedly ingested large amounts of amlodipine, losartan, Keppra. We will need to monitor in ICU, central line placed in ED for use if needed for hypertension. See further recommendations from poison control/case number and H&P. After cleared medically will need inpatient psych. Psych consult in place. Hypokalemia Replaced in ED, protocol in place. History of anxiety/BPD/schizophrenia Hold home medications given overdose. DVT PPX: Lovenox Code status: Full Discharge Plan: Home Plan to discharge in: Greater than 2 days - Advance Directives Does patient have a Living Will: No Does patient have a Durable POA for Healthcare: No - Code Status/Comfort Care Code Status Assessed: Yes (Full code) Critical Care: No Time Spent Managing Pts Care (In Minutes): 70
[2022-08-13] MEDS ORDERED: D5.45NS W/KCL 20MEQ 1,000 ML IV ONE (05:37)
[2022-08-13] MEDS ORDERED: ETOMIDATE 20 MG/10 ML VIAL IV ONE (05:50)
--- NOTE | 2022-08-13 05:53 | ER ---
Nurse's Notes [facility] Name: Dami Newton Age: 42 yrs Sex: Male : 1980 Arrival Date: 08/12/2022 Time: 23:02 Bed 4 Private MD: Diagnosis: Amlodipine overdose, losartan overdose, Keppra overdose , suicidal ideation, depression, suicidal plan Presentation: 08/12 23:10 Chief complaint: EMS states: "Pt took all of his prescription Losartan 50 mg, mb9 Amlodipine Besylate 10mg, and Levetiracetam 500 mg on purpose. Last filled prescriptions was on 07/26/22. Pt has been having decreased LOC and vomiting". Coronavirus screen: Vaccine status: Patient reports receiving the 2nd dose of the covid vaccine. Ebola Screen: No symptoms or risks identified at this time. Initial Sepsis Screen: Does the patient meet any 2 criteria? No. Patient's initial sepsis screen is negative. Does the patient have a suspected source of infection? No. Patient's initial sepsis screen is negative. Risk Assessment: Do you want to hurt yourself or someone else? Patient reports desire/thoughts of hurting themselves or someone else. Provider notified. Onset of symptoms was August 12, 2022. 23:10 Method Of Arrival: EMS: [facility] mb9 23:10 Acuity: STEVE 2 mb9 Triage Assessment: 23:15 General: Appears in no apparent distress. uncomfortable, Behavior is cooperative, flat. vc1 Pain: Denies pain. EENT: No deficits noted. No signs and/or symptoms were reported regarding the EENT system. Neuro: Level of Consciousness is awake, obeys commands, lethargic, Oriented to person, place, situation. Cardiovascular: No deficits noted. Respiratory: Airway is patent Respiratory effort is even, unlabored, Respiratory pattern is regular, symmetrical. GI: No deficits noted. No signs and/or symptoms were reported involving the gastrointestinal system. : No deficits noted. No signs and/or symptoms were reported regarding the genitourinary system. Derm: No deficits noted. No signs and/or symptoms reported regarding the dermatologic system. Musculoskeletal: No deficits noted. No signs and/or symptoms reported regarding the musculoskeletal system. Historical: - Allergies: 23:37 Ruxulti; mb9 - Home Meds: 23:37 losartan 50 mg oral tablet [Active]; amlodipine 10 mg tablet [Active]; levetiracetam mb9 500 mg oral tablet [Active]; - PMHx: 23:37 addiction; Anxiety; Bipolar disorder; Depression; Paranoid Schizophrenia; mb9 - Family history:: not pertinent. - Social history:: Smoking status: unknown. Screenin/23 01:36 [facility] ED Fall Risk Assessment (Adult) History of falling in the last 3 months, vc1 including since admission No falls in past 3 months (0 pts) Confusion or Disorientation No (0 pts) Intoxicated or Sedated Yes (3 pts) Impaired Gait Yes (1 pt) Mobility Assist Device Used No (0 pt) Altered Elimination Yes (1 pt) Score/Fall Risk Level 3 or more points = High Risk Oriented to surroundings, Maintained a safe environment, Educated pt \\T\\ family on fall prevention, incl call for assistance when getting out of bed, Hourly rounding (assess needs \\T\\ fall precautionary measures) done. Abuse screen: Denies threats or abuse. Nutritional screening: No deficits noted. Tuberculosis screening: No symptoms or risk factors identified. Assessment: 00:00 Reassessment: No changes from previously documented assessment. vc1 01:00 Reassessment: No changes from previously documented assessment. Patient and/or family vc1 updated on plan of care and expected duration. Pain level reassessed. Neuro: Level of Consciousness is obtunded. 02:00 Reassessment: No changes from previously documented assessment. Patient and/or family vc1 updated on plan of care and expected duration. Pain level reassessed. 03:00 Reassessment: No changes from previously documented assessment. Patient and/or family vc1 updated on plan of care and expected duration. Pain level reassessed. 04:04 Reassessment: Update given to Poison control, no new recommendations. Reassessment: vc1 Patient and/or family updated on plan of care and expected duration. Pain level reassessed. Pain: Denies pain. Neuro: Level of Consciousness is lethargic. 05:00 Reassessment: No changes from previously documented assessment. Neuro: Le vc1 Agitation-Sedation Scale (RASS): -2 Light sedation Level of Consciousness is obtunded. 06:00 Reassessment: No changes from previously documented assessment. Patient and/or family vc1 updated on plan of care and expected duration. Pain level reassessed. 06:41 Reassessment: No changes from previously documented assessment. Patient and/or family vc1 updated on plan of care and expected duration. Pain level reassessed. 07:00 Reassessment: No changes from previously documented assessment. Report received from ll1 webfocus developer RN. Psych: 08/12 23:10 [place] Suicide Severity Screening: In the past month, have you wished you were vc1 or wished you could go to sleep and not wake up? Patient responds "yes." Based off the client's responses additional C-SSRS screening is required. "In the past month, have you actually had any thoughts of killing yourself?" Patient responds "yes." Based off the client's response additional [place] suicide severity screening questions to be further documented on paper forms. "In your lifetime, have you ever done anything, started to do anything, or prepared to do anything to end your life?" Patient responds "yes." Patient reports suicidal intent within 3 past months. Patient reports suicidal intent occurred greater than 3 months prior. Subjective: Patient's mood is sad, Delusions are denied, Hallucinations are denied Having thoughts of suicide. Plan for suicide is patient took the rest of 2 of his blood pressure medications and all of his seizure medications with the intent of killing himself. Objective: Patient is cooperative, Speech is slow, soft, Affect is flat, Patient has mutilated themselves by old cuts on the upper thighs and wrists. Interventions: Removed personal items and placed in bag. Patient placed in hospital gown. Searched person for dangerous items. Urine collected and sent for urine drug test. Belonging list filled out. Safety Checks: Personal items have been removed. Pt must remain on cardiac monitoring Door is open. Commitment: Patient will be an involuntary commitment. Commitment papers completed. 08/13 01:38 Pt denies substance abuse. vc1 Vital Signs: 08/12 23:10 BP 113 / 64; Pulse 93; Resp 18; Pulse Ox 96% on R/A; Weight 97.52 kg; Height 5 ft. 10 mb9 in. ; 08/13 00:00 BP 123 / 99; Pulse 97; Resp 17; Temp 96.1; Pulse Ox 98% on R/A; vc1 01:00 BP 115 / 74; Pulse 89; Resp 25; Temp 96.7(Ca); Pulse Ox 93% on R/A; vc1 02:00 BP 148 / 98; Pulse 89; Resp 11; Pulse Ox 96% on 3 lpm NC; vc1 03:00 BP 108 / 59; Pulse 86; Resp 18; Temp 97(Ca); Pulse Ox 98% on 3 lpm NC; vc1 04:00 BP 100 / 67; Pulse 99; Resp 17; Temp 97.6(Ca); Pulse Ox 95% on 3 lpm NC; vc1 05:00 BP 119 / 76; Pulse 101; Resp 22; Temp 97.6(Ca); Pulse Ox 96% on 3 lpm NC; vc1 06:00 BP 130 / 77; Pulse 96; Resp 19; Temp 97.8(Ca); Pulse Ox 97% on 3 lpm NC; vc1 06:30 BP 130 / 66 (auto/); Pulse 95 MON; Resp 19 S; Temp 97.9(Ca); Pulse Ox 97% on R/A; vc1 07:00 BP 115 / 91; Pulse 101; Resp 17; Pulse Ox 98% on R/A; ll1 08/12 23:10 Body Mass Index 30.85 (97.52 kg, 177.8 cm) mb9 ED Course: 08/12 23:10 Patient arrived in ED. mb9 23:11 Cj Curtis MD is Attending Physician. sp4 23:15 Triage completed. mb9 23:15 Arm band placed on. mb9 23:26 Acetaminophen Sent. kl 23:26 Basic Metabolic Panel Sent. kl 23:26 CBC with Diff Sent. kl 23:26 ETOH Level Sent. kl 23:26 Hepatic Function Sent. kl 23:26 PT-INR Sent. kl 23:26 Ptt, Activated Sent. kl 23:26 Salicylate Sent. kl 23:33 Chest Single View XRAY In Process Unspecified. EDMS 23:53 Placed in gown. Bed in low position. Call light in reach. Side rails up X 1. Client mb9 placed on continuous cardiac and pulse oximetry monitoring. NIBP monitoring applied. quality assurance monitor chassis on. 08/13 00:05 3-way catheter inserted, using sterile technique, 16 Fr. Specimen obtained. vc1 00:19 Raquel Rubio RN is Primary Nurse. vc1 05:52 Janes Abdi MD is Hospitalizing Provider. sp4 06:00 Hospitalizing Provider role handed off by Janes Abdi MD sp4 06:00 Crescencio Martinez MD is Hospitalizing Provider. sp4 07:00 No provider procedures requiring assistance completed. Patient admitted, IV remains in bp place. Restraints: 07:00 Non-Violent Restraint: Order obtained. Initiated on August 13, 2022 at 07:00 Unable to bp provide Restraint education. PT DISORIENTED, UNABLE TO UNDERSTAND RESTRAINT RELEASE CRITERIA. Actions/Behavior observed: Confused/disoriented, has impaired decision making, has decreased level of consciousness, unable to follow instructions, repeated attempts to remove/tamper lines/tubes/IV med devices \\T\\ wound dressing, Less restrictive alternatives attempted: decrease environmental stimuli, reoriented to location, medications evaluated, medicated for pain/anxiety, Alternative interventions: Ineffective. Clinical justification for use: patient safety, Mental status: agitated/restless, confused, Cognition: poor judgement, poor safety awareness, unable to follow commands, Circulation: Within defined parameters (based on Cardiovascular assessment) Skin integrity: Within defined parameters (based on Integumentary assessment) Signs of injury related to restraint: No injuries noted. Range of Motion (ROM): declined. Elimination/Hygiene: with urinary catheter, Restraint status: Soft wrist restraint (Right) Started. Soft wrist restraint (Left) Started. Soft ankle restraint (Right) Started. Soft ankle restraint (Left) Started. Criteria to discontinue Restraint not met. Restraint continued. Administered Medications: 06:42 Discontinued: D5-1/2 NS IV 1000 ml IV at 125 ml/hr once; 1000 mL bolus; followed by 125 vc1 mL/hr continuous 00:19 Drug: NS 0.9% IV 1000 ml Route: IV; Rate: 1 bolus; Site: right hand; vc1 01:19 Follow up: IV Status: Completed infusion; IV Intake: 1000ml vc1 00:19 Drug: Glucagon IVP 1 mg Route: IVP; Site: right hand; vc1 06:44 Follow up: Response: No adverse reaction vc1 00:19 Drug: Calcium Gluconate IVPB 2 grams Route: IVPB; Infused Over: 60 mins; Site: right vc1 hand; 01:19 Follow up: IV Status: Completed infusion; IV Intake: 100ml vc1 00:20 Drug: Ondansetron IVP 8 mg Route: IVP; Site: right hand; vc1 01:00 Follow up: Response: No adverse reaction; Marked relief of symptoms; Vomiting decreased vc1 00:20 Drug: Promethazine IM 25 mg Route: IM; Site: right deltoid; vc1 01:00 Follow up: Response: No adverse reaction; Marked relief of symptoms; Vomiting decreased vc1 00:38 Drug: NS 0.9% IV 1000 ml Route: IV; Rate: 1 bolus; Site: left antecubital; vc1 01:38 Follow up: IV Status: Completed infusion; IV Intake: 1000ml vc1 01:51 Drug: D5-1/2 NS IV 1000 ml Route: IV; Rate: 125 ml/hr; Site: right hand; vc1 06:42 Follow up: IV Status: Order to discontinue infusion; IV Intake: 500ml vc1 02:24 Not Given (Physician Discretion): Actidose-Sorbitol PO Suspension 100 grams PO once vc1 05:33 Drug: Ketamine IVP 200 mg {Note: administered by Dr Curtis.} Route: IVP; Site: right kl hand; 06:43 Follow up: Response: No adverse reaction vc1 06:00 Drug: D5-1/2 NS with KCl IV 20 mEq/L 1000 ml Route: IV; Rate: 125 ml/hr; Site: right vc1 jugular; Medication: 08/12 23:56 VIS not applicable for this client. mb9 Intake: 08/13 01:19 IV: 100ml; Total: 100ml. vc1 01:19 IV: 1000ml; Total: 1100ml. vc1 01:38 IV: 1000ml; Total: 2100ml. vc1 06:42 IV: 500ml; Total: 2600ml. vc1 Output: 00:05 Urine: 200ml (Bal); Total: 200ml. vc1 Outcome: 05:53 Decision to Hospitalize by Provider. sp4 07:32 Admitted to ER Hold. Please see [facility] for further documentation. bp 07:32 Condition: stable 07:32 Instructed on the need for admit. 10:22 Patient left the ED. ll1 Signatures: Dispatcher [employer] EDMS Margarita Gonzalez RN RN kl Peltier, Brian, RN RN bp Lewis, Lynsay, RN RN [facility] Raquel Rubio RN RN vc1 Cherry Olivares RN RN mb9 Cj Curtis MD MD sp4 Corrections: (The following items were deleted from the chart) 00: 00:20 [place] Suicide Severity Screening: In the past month, have you wished you were vc1 or wished you could go to sleep and not wake up? Patient responds "yes." Based off the client's responses additional [place]-SSRS screening is required. "In the past month, have you actually had any thoughts of killing yourself?" Patient responds "yes." Based off the client's response additional [place] suicide severity screening questions to be further documented on paper forms. "In your lifetime, have you ever done anything, started to do anything, or prepared to do anything to end your life?" Patient responds "yes." Patient reports suicidal intent within 3 past months. Patient reports suicidal intent occurred greater than 3 months prior. 1 : 00:20 Subjective: Patient's mood is sad, Delusions are denied, Hallucinations are 1 denied Having thoughts of suicide. Plan for suicide is patient took several different blood pressure medications with the intent to kill himself 1 : 00:20 Objective: Patient is cooperative, Speech is slow, soft, Affect is flat, Patient vc1 has mutilated themselves by old cuts on the upper thighs and wrists 1 00:20 Interventions: Removed personal items and placed in bag. Patient placed in [facility] hospital gown. Searched person for dangerous items. Urine collected and sent for urine drug test. Belonging list filled out. 1 00:20 Safety Checks: Personal items have been removed. Pt must remain on cardiac [facility] monitoring Door is open. 1 : 00:20 Commitment: Patient will be an involuntary commitment. Commitment papers [facility] completed. 1 00:26 05/22 23:10 [place] Suicide Severity Screening: In the past month, have you wished you vc1 were or wished you could go to sleep and not wake up? Patient responds "yes." Based off the client's responses additional [place]-SSRS screening is required. "In the past month, have you actually had any thoughts of killing yourself?" Patient responds "yes." Based off the client's response additional [place] suicide severity screening questions to be further documented on paper forms. "In your lifetime, have you ever done anything, started to do anything, or prepared to do anything to end your life?" Patient responds "yes." Patient reports suicidal intent within 3 past months. Patient reports suicidal intent occurred greater than 3 months prior. vc1 08/13 00:26 08/12 23:10 Subjective: Patient's mood is sad, Delusions are denied, Hallucinations are vc1 denied Having thoughts of suicide. Plan for suicide is patient took several different blood pressure medications with the intent to kill himself vc1 08/13 04:52 04:50 General: Appears in no apparent distress. uncomfortable, Behavior is cooperative, vc1 flat, vc1 : 04:50 Pain: Denies pain. vc1 vc1 : 04:50 EENT: No deficits noted. No signs and/or symptoms were reported regarding the vc1 EENT system. vc1 04:50 Neuro: Level of Consciousness is awake, obeys commands, lethargic, Oriented to vc1 person, place, situation, vc1 04:50 Cardiovascular: No deficits noted. vc1 vc1 : 04:50 Respiratory: Airway is patent Respiratory effort is even, unlabored, Respiratory vc1 pattern is regular, symmetrical, vc1 04:50 GI: No deficits noted. No signs and/or symptoms were reported involving the vc1 gastrointestinal system. vc1 : 04:50 : No deficits noted. No signs and/or symptoms were reported regarding the vc1 genitourinary system. vc1 04:50 Derm: No deficits noted. No signs and/or symptoms reported regarding the vc1 dermatologic system. vc1 04:50 Musculoskeletal: No deficits noted. No signs and/or symptoms reported regarding vc1 the musculoskeletal system. vc1
--- NOTE | 2022-08-13 05:54 | EDPHYS ---
Physician Documentation [facility] Name: Dami Newton Age: 42 yrs Sex: Male : 1980 Arrival Date: 08/12/2022 Time: 23:02 Bed 4 Private MD: ED Physician Cj Curtis HPI: 08/12 23:13 This 42 yrs old Male presents to ER via Unassigned with complaints of sp4 overdose, SI. 23:13 42-year-old male with prior history of suicidal attempt, presents for acute overdose sp4 with the following medications. Keppra 500 mg full bottle presumably 180 tablets. Amlodipine besylate 10 mg presumably entire bottle of 30 tablets, also losartan 50 mg presumably entire bottle of 90 tablets. Patient states he is upset and depressed and does not want to live anymore. Patient on arrival is somnolent and actively vomiting. Patient is not able to say when he took those medications. Medications belonged to patient's mother Ms. Conchis Johnson. . 23:43 Poison control was contacted and case number recorded [id number]. Poison control states sp4 that amlodipine is the most dangerous, being calcium channel titi can cause severe hypotension with bradycardia. Poison control advised atropine IV, calcium IV, in case of hypotension Central line placement, infusion of insulin 1 unit per cake per hour. D10 infusion. And Levophed infusion all in case of significant hypotension. . Historical: - Allergies: 23:37 Ruxulti; mb9 - Home Meds: 23:37 losartan 50 mg oral tablet [Active]; amlodipine 10 mg tablet [Active]; levetiracetam mb9 500 mg oral tablet [Active]; - PMHx: 23:37 addiction; Anxiety; Bipolar disorder; Depression; Paranoid Schizophrenia; mb9 - Family history:: not pertinent. - Social history:: Smoking status: unknown. ROS: 23:43 Constitutional: Negative for fever, chills, and weight loss, Eyes: Negative for injury, sp4 pain, redness, and discharge, ENT: Negative for injury, pain, and discharge, Neck: Negative for injury, pain, and swelling, Cardiovascular: Negative for chest pain, palpitations, and edema, Respiratory: Negative for shortness of breath, cough, wheezing, and pleuritic chest pain, Abdomen/GI: Negative for abdominal pain, nausea, vomiting, diarrhea, and constipation, Back: Negative for injury and pain, : Negative for injury, bleeding, discharge, and swelling, MS/Extremity: Negative for injury and deformity, Skin: Negative for injury, rash, and discoloration, Neuro: Negative for headache, weakness, numbness, tingling, and seizure, positive for drowsiness Psych: Positive for depression, suicidal ideation, suicidal attempt. Positive for suicide plan Allergy/Immunology: Negative for hives, rash, and allergies Endocrine: Negative for neck swelling, polydipsia, polyuria, polyphagia, and weight changes Hematologic/Lymphatic: Negative for swollen nodes, abnormal bleeding, and unusual bruising Exam: 23:43 Constitutional: This is a well developed, well nourished patient who is awake, drowsy sp4 on arrival, arousable, cooperative on exam, vomited actively on arrival to the emergency room, ill-appearing, nontoxic Head/Face: Normocephalic, atraumatic. Eyes: Pupils equal round and reactive to light, extra-ocular motions intact. Lids and lashes normal. Conjunctiva and sclera are not injected. Cornea within normal limits. Periorbital areas with no swelling, redness, or edema. ENT: Nares patent. No nasal discharge, no septal abnormalities noted. Tympanic membranes are normal and external auditory canals are clear. Oropharynx with no redness, swelling, or masses, exudates, or evidence of obstruction, uvula midline. Mucous membranes moist. Poor dentition Neck: Trachea midline, no thyromegaly or masses palpated, and no cervical lymphadenopathy. Supple, full range of motion without nuchal rigidity, or vertebral point tenderness. No Meningismus. Chest/axilla: Normal chest wall appearance and motion. Nontender with no deformity. No lesions are appreciated. Cardiovascular: Regular rate and rhythm with a normal S1 and S2. No gallops, murmurs, or rubs. Normal PMI, no JVD. No pulse deficits. Respiratory: Lungs have equal breath sounds bilaterally, clear to auscultation and percussion. No rales, rhonchi or wheezes noted. No increased work of breathing, no retractions or nasal flaring. Abdomen/GI: Soft, non-tender, with normal bowel sounds. No distension or tympany. No guarding or rebound. No evidence of tenderness throughout. Back: No spinal tenderness. No costovertebral tenderness. Male : Normal genitalia with no discharge or lesions. Skin: Warm, dry with normal turgor. Normal color with no rashes, no lesions, and no evidence of cellulitis. MS/ Extremity: Pulses equal, no cyanosis. Neurovascular intact. Full, normal range of motion. Neuro: Awake and alert, GCS 15, oriented to person, place, time, and situation. Cranial nerves II-XII grossly intact. Motor strength 5/5 in all extremities. Sensory grossly intact. Psych: Awake, alert, with orientation to person, place and time. Behavior, mood, and affect are within normal limits 08/13 05:49 ECG was reviewed by the Attending Physician. Normal sinus rhythm at the rate of 82, no sp4 ST elevation or depression, no ectopy, normal EKG overall, normal intervals. EKG time 2347 08/12/2022 Vital Signs: 08/12 23:10 BP 113 / 64; Pulse 93; Resp 18; Pulse Ox 96% on R/A; Weight 97.52 kg; Height 5 ft. 10 mb9 in. ; 08/13 00:00 BP 123 / 99; Pulse 97; Resp 17; Temp 96.1; Pulse Ox 98% on R/A; vc1 01:00 BP 115 / 74; Pulse 89; Resp 25; Temp 96.7(Ca); Pulse Ox 93% on R/A; vc1 02:00 BP 148 / 98; Pulse 89; Resp 11; Pulse Ox 96% on 3 lpm NC; vc1 03:00 BP 108 / 59; Pulse 86; Resp 18; Temp 97(Ca); Pulse Ox 98% on 3 lpm NC; vc1 04:00 BP 100 / 67; Pulse 99; Resp 17; Temp 97.6(Ca); Pulse Ox 95% on 3 lpm NC; vc1 05:00 BP 119 / 76; Pulse 101; Resp 22; Temp 97.6(Ca); Pulse Ox 96% on 3 lpm NC; vc1 06:00 BP 130 / 77; Pulse 96; Resp 19; Temp 97.8(Ca); Pulse Ox 97% on 3 lpm NC; vc1 06:30 BP 130 / 66 (auto/); Pulse 95 MON; Resp 19 S; Temp 97.9(Ca); Pulse Ox 97% on R/A; vc1 07:00 BP 115 / 91; Pulse 101; Resp 17; Pulse Ox 98% on R/A; ll1 08/12 23:10 Body Mass Index 30.85 (97.52 kg, 177.8 cm) mb9 Procedures: 05:49 Central Line: the site was prepped with in sterile fashion, Hibiclens , a triple lumen sp4 catheter was inserted, in the right internal jugular vein, in 1 attempts. placement was verified, by CXR, by blood return, the site was dressed with 4X4s, Tegaderm, using sterile technique, the patient tolerated the procedure, well, Right internal jugular triple-lumen CVL placed with ultrasound guidance without complications. MDM: 08/12 23:26 Patient medically screened. sp4 08/13 05: Differential Diagnosis altered mental status, sepsis, Multiple medication overdose. sp4 :49 Data reviewed: vital signs, nurses notes, lab test result(s), EKG. sp4 :49 ED course: Patient was monitored in the emergency department and thus far has been sp4 stable. Patient was excepted for monitoring to ICU for further management. Central line placed in case of blood pressure dropped and required resuscitation in case of bradycardia and blood pressure drop secondary to amlodipine ingestion. . 08/12 23:12 Order name: Acetaminophen; Complete Time: 00:37 [facility] 08/12 23:12 Order name: Basic Metabolic Panel; Complete Time: 00:37 [facility] 08/12 23:12 Order name: CBC with Diff; Complete Time: 00:37 [facility] 08/12 23:12 Order name: ETOH Level; Complete Time: 00:37 [facility] 08/12 23:12 Order name: Hepatic Function; Complete Time: 00:37 [facility] 08/12 23:12 Order name: PT-INR; Complete Time: : [facility] 08/12 23:12 Order name: Ptt, Activated; Complete Time: : [facility] 08/12 23:12 Order name: Salicylate; Complete Time: 00:37 [facility] 08/12 23:12 Order name: Urinalysis w/ reflexes; Complete Time: 01: [facility] 08/12 23:12 Order name: Urine Drug Screen; Complete Time: [facility] 08/13 08:53 Order name: Basic Metabolic Panel EDMS 08/13 08:53 Order name: Magnesium EDKY 08/12 23:12 Order name: Chest Single View XRAY [facility] 08/13 05:54 Order name: Chest Single View XRAY [facility] 08/12 23:12 Order name: EKG; Complete Time: 23:12 [facility] 08/13 07:33 Order name: Diet Finger Food; Complete Time: 07:33 ll1 08/12 23:12 Order name: EKG - Nurse/Tech; Complete Time: 00:38 [facility] 08/12 23:12 Order name: IV Saline Lock; Complete Time: 00:38 [facility] 08/12 23:12 Order name: Labs collected and sent; Complete Time: 00:38 [facility] 08/12 23:12 Order name: Suicide Precautions; Complete Time: 00: [facility] 08/12 23:12 Order name: Suicide Screening ([place]); Complete Time: 00:38 [facility] 08/13 07:46 Order name: Restraint:Non-Violent; Complete Time: 07:46 bp EC:49 Rate is 82 beats/min. Rhythm is regular, Normal Sinus Rhythm. QRS [place] is Normal. MD sp4 interval is normal. QRS interval is normal. QT interval is normal. T waves are Normal. No ST changes noted. Clinical impression: Normal ECG. Interpreted by me. Administered Medications: 06:42 Discontinued: D5-1/2 NS IV 1000 ml IV at 125 ml/hr once; 1000 mL bolus; followed by 125 vc1 mL/hr continuous 00:19 Drug: NS 0.9% IV 1000 ml Route: IV; Rate: 1 bolus; Site: right hand; vc1 01:19 Follow up: IV Status: Completed infusion; IV Intake: 1000ml vc1 00:19 Drug: Glucagon IVP 1 mg Route: IVP; Site: right hand; vc1 06:44 Follow up: Response: No adverse reaction vc1 00:19 Drug: Calcium Gluconate IVPB 2 grams Route: IVPB; Infused Over: 60 mins; Site: right vc1 hand; 01:19 Follow up: IV Status: Completed infusion; IV Intake: 100ml vc1 00:20 Drug: Ondansetron IVP 8 mg Route: IVP; Site: right hand; vc1 01:00 Follow up: Response: No adverse reaction; Marked relief of symptoms; Vomiting decreased vc1 00:20 Drug: Promethazine IM 25 mg Route: IM; Site: right deltoid; vc1 01:00 Follow up: Response: No adverse reaction; Marked relief of symptoms; Vomiting decreased vc1 00:38 Drug: NS 0.9% IV 1000 ml Route: IV; Rate: 1 bolus; Site: left antecubital; vc1 01:38 Follow up: IV Status: Completed infusion; IV Intake: 1000ml vc1 01:51 Drug: D5-1/2 NS IV 1000 ml Route: IV; Rate: 125 ml/hr; Site: right hand; vc1 06:42 Follow up: IV Status: Order to discontinue infusion; IV Intake: 500ml vc1 02:24 Not Given (Physician Discretion): Actidose-Sorbitol PO Suspension 100 grams PO once vc1 05:33 Drug: Ketamine IVP 200 mg {Note: administered by Dr Curtis.} Route: IVP; Site: right kl hand; 06:43 Follow up: Response: No adverse reaction vc1 06:00 Drug: D5-1/2 NS with KCl IV 20 mEq/L 1000 ml Route: IV; Rate: 125 ml/hr; Site: right vc1 jugular; Disposition Summary: 08/13/22 05:53 Hospitalization Ordered Hospitalization Status: Inpatient Admission sp4 Condition: Stable sp4 Problem: new sp4 Symptoms: have improved sp4 Bed/Room Type: Standard sp4 Provider: Crescencio Martinez(08/13/22 06:01) sp4 Location: Intensive Care Unit(08/13/22 09:38) bd Room Assignment: 2-(08/13/22 09:38) bd Diagnosis - Amlodipine overdose, losartan overdose, Keppra overdose , suicidal ideation, sp4 depression, suicidal plan Forms: - Medication Reconciliation Form sp4 - SBAR form sp4 Critical care time excluding procedures: 05:54 Critical care time: Bedside Care: 36 minutes, Consultation: 12 minutes, Family sp4 Intervention: 12 minutes. Total time: 60 minutes Signatures: Dispatcher [employer] EDMS Alicia Vann Kimberly RN Brianna Heaton RN Zane Dobbs, RN MDS COORDINATOR-C RN MDS COORDINATOR-Cla1 Brain Jackson RN Raquel Cartagena RN RN vc1 Cherry Olivares RN RN mb9 Cj Curtis MD MD sp4 Corrections: (The following items were deleted from the chart) 06:01 05:53 Janes Abdi sp4 sp4 06:18 05:53 Intensive Care Unit sp4 mw 06:18 05:53 sp4 mw 09:38 06:18 [facility] ER HOLD mw bd 09:38 06:18 ERHOLD- mw bd
[2022-08-13] MEDS: D5.45NS W/KCL 20MEQ 1,000 ML IV SCH ×2 (07:07→13:36)
[2022-08-13 08:47] LABS: Magnesium 2.1 mg/dL (1.6-2.4); Potassium 3.8 mEq/L (3.5-5.1)
[2022-08-13 09:00] VITALS: BMI 30.7
[2022-08-13] MEDS: ENOXAPARIN 40 MG/0.4 ML SQ SCH (09:00)
[2022-08-13] MEDS ORDERED: ENOXAPARIN 40 MG/0.4 ML SQ ONE (09:09)
--- NOTE | 2022-08-13 11:23 | RAD REPORT ---
EXAM DESCRIPTION: Chest Single View 08/13/2022 12:20 AM CDT CLINICAL HISTORY: 42 years, Male, overdose COMPARISON: None. FINDINGS: Single view of the chest was obtained portable. No prior films are available for compariso n. External EKG leads within the [id number] limits diagnosis. The cardiomediastinal silhouette dem onstrate to be unremarkable. The heart is not enlarged. The thoracic aorta is unremarkable. The pulmo nary vasculature is normal distribution. Costophrenic angles are sharp. No areas of consolidation o r masses are seen. The rest of the soft tissue and bony structures demonstrate to be unremarkable. IMPRESSION: NO ACUTE CARDIOPULMONARY DISEASE SEEN. Electronically signed by: Vinod Pugh MD 08/13/2022 12:20 AM CDT Due to temporary technical issues with the PACS/Fluency reporting system, reports are being signed by the in house radiologists without review as a courtesy to insure prompt reporting. The interpreting radiologist is fully responsible for the content of the report.
--- NOTE | 2022-08-13 15:36 | RAD REPORT ---
EXAM DESCRIPTION: Chest Single View CLINICAL HISTORY: 42 years Male CVL placement COMPARISON: Chest x-ray 08/12/2022 FINDINGS: Right IJ catheter tip likely in the SVC. Lung volumes diminished. Cardiac silhouette is unchanged. No pneumothorax. No large pleural effusion. No focal consolidation. No acute bony finding. IMPRESSION: 1. Right IJ catheter tip likely in the SVC. No pneumothorax. 2. No acute cardiopulmonary findings. Electronically signed by: Bruna Valera MD 08/13/2022 6:46 AM CDT Due to temporary technical issues with the PACS/Fluency reporting system, reports are being signed by the in house radiologists without review as a courtesy to insure prompt reporting. The interpreting radiologist is fully responsible for the content of the report.
[2022-08-13] MEDS: ONDANSETRON 4 MG/2 ML VIAL IV PRN (16:35)
[2022-08-14] MEDS: D5.45NS W/KCL 20MEQ 1,000 ML IV SCH (00:21)
[2022-08-14 04:47] LABS: Absolute Lymphocytes (CBC) 1.4 K/uL (0.7-4.9); Hematocrit 42.2 % (39.6-49.0); Lymphocytes % 12.6 % (15.3-44.8); MCV 91.8 fL (80-100); MPV 7.9 fL (7.6-11.3)
--- NOTE | 2022-08-14 04:58 | EKG ---
Test Date: 2022-08-12 Test Time: 23:47:45 Gore Cutter: MEASUREMENT RESULTS: Intervals: Rate: 82 DE: 172 QRSD: 86 QT: 368 QTc: 429 [place]: P: 49 DE: 172 QRS: 52 T: 51 INTERPRETIVE STATEMENTS: Normal sinus rhythm Normal ECG Compared to ECG 06/21/2022 04:31:24 No significant changes Electronically Signed On 08-14-22 04:54:19 CDT by Michael Charles
[2022-08-14 05:15] LABS: Bilirubin Total 0.4 mg/dL (0.2-1.0); Potassium 4.1 mEq/L (3.5-5.1); Protein, Total 6.4 g/dL (6.4-8.2); Thyroid Stimulating Hormone 0.435 uIU/mL (0.358-3.740)
[2022-08-14] MEDS: ENOXAPARIN 40 MG/0.4 ML SQ SCH (08:55)
[2022-08-14] MEDS: NA CHLORIDE 0.9% 1,000 ML IV SCH ×2 (10:12→20:42)
--- NOTE | 2022-08-14 11:38 | P.CNS ---
Date of Consult: 08/14/22 Reason for Consult: JARAD Requesting Physician: Zane Ontiveros Chief Complaint: Intentional overdose History of Present Illness: Pt ia a 42-year-old male with who's PMHx is obtained largely through chart review and information provided by the SENIOR RESERVOIR ENGINEER as pt is lethargic and unable to provide history and no family members at bedside. Per the records, there is a history of anxiety, bipolar disorder, depression, paranoid s chizophrenia and pt yesterday presented to the emergency department after a reported intentional overdose last night. It is unclear what time he ingested the offending medications, it was reported that patient took up to thirty 10 mg amlodipine tablets, up to 90 losartan 50 mg tablets, Keppra 500 mg up to 180 tablets. Patient has remained normotensive but sent to the ICU for close montoring, pt has been lethargic but per SENIOR RESERVOIR ENGINEER did wake up briefly earlier and answer some questions. Renal service consulted for JARAD developed. Allergies No Known Allergies Allergy (Unverified 02/28/12 17:13) - Past Medical/Surgical History Diabetic: No -: Anxiety/BPD/schizophrenia -: Unable to obtain Psychosocial/ Personal History: Unable to obtain - Social History Smoking Status: Unknown if ever smoked Place of Residence: Home Review of Systems is unable to be obtained Physical Examination Temp Pulse Resp BP Pulse Ox 98.8 F 95 H 19 103/79 99 08/14/22 08:00 08/14/22 09:00 08/14/22 09:00 08/14/22 09:00 08/14/22 09:00 General: Other (lethargic, NAD) HEENT: Atraumatic, Normocephalic Neck: Supple Respiratory: Clear to auscultation bilaterally, Normal air movement Cardiovascular: Other (Mildly tachy but regular) Gastrointestinal: Soft and benign, Non-distended, No tenderness Musculoskeletal: No tenderness, No warmth Integumentary: No significant lesion Neurological: Other (Lethargic, ) Conclusions/Impression: A/P) 1. Stage II JARAD in the setting of medication overdose including ARB per reports although fortunately pt is non oliguric and K level is acceptable. UA on admission was unremarkable. 2. Cont to monitor UOP closely. Monitor lytes, currently acceptable. 3. Cont NS isotonic IVF. 4. Cont vitals monitoring closely in the ICU including monitoring BG, cont close monitoring for other signs of CCB toxicity. CCB medications are not typically amenable to removal by hemodialysis/filtration 5. AMS, lethargy 2nd to medication overdose/other -management per hospitalist team. 6. Unclear if drug levels of the offending medications are available to document and follow up. Seamus Florian MD, FASN
--- NOTE | 2022-08-14 12:47 | P.PN ---
Subjective Date of Service: 08/14/22 Chief Complaint: Intentional overdose Subjective: No new changes Physical Examination - Vital Signs Temperature: 98.8 F Blood Pressure: 103/79 Pulse: 95 Respirations: 19 Pulse Ox (%): 99 - Physical Exam General: Alert, Confused HEENT: Atraumatic, Normocephalic Respiratory: Normal air movement Cardiovascular: Normal pulses, Regular rate/rhythm Gastrointestinal: Soft and benign Musculoskeletal: No swelling Assessment And Plan - Plan History of paranoid schizophrenia History of mental irritation History of depression History of bipolar disorder Acute kidney injury Metabolic encephalopathy. Parasuicide Plan:
--- NOTE | 2022-08-14 14:02 | P.PN ---
Subjective Date of Service: 08/14/22 Chief Complaint: Intentional overdose Subjective: No new changes, Improving (still altered to some degree.) Physical Examination - Vital Signs Temperature: 98.8 F Blood Pressure: 103/79 Pulse: 95 Respirations: 19 Pulse Ox (%): 99 - Physical Exam General: Confused HEENT: Atraumatic, Normocephalic Neck: Supple Respiratory: Normal air movement Cardiovascular: Regular rate/rhythm, Normal S1 S2 Gastrointestinal: Soft and benign Musculoskeletal: No swelling Assessment And Plan - Plan History of paranoid schizophrenia History of mental irritation History of depression History of bipolar disorder Acute kidney injury-post constrast exposure. Metabolic encephalopathy. Parasuicide Plan: He does have worsening cr level post contrast exposure. we will continue hydration. Nephrology consult placed. He also does have better pulse rate. we will continue to dose medication for eGFR. We will continue to follow nephrology recommendation. We will continue to avoid exposure to nephrotoxins. we do think his JARAD episode is due to contrast exposure. He is still significantly affected by multiple drugs taken however he is clinically stable with stable vitals. We will continue aggressive IV hydration to assist with expelling overdosed drugs and also to hydrate him for his contrast-induced nephropathy episode. Psychiatry recommendation pending. DVT and GI prophylaxis on board.
[2022-08-14 14:39] LABS: Magnesium 2.5 mg/dL (1.6-2.4); Potassium 3.9 mEq/L (3.5-5.1)
[2022-08-14] MEDS: ONDANSETRON 4 MG/2 ML VIAL IV PRN (14:47)
[2022-08-15 05:11] LABS: Absolute Lymphocytes (CBC) 1.9 K/uL (0.7-4.9); Lymphocytes % 21.6 % (15.3-44.8); MPV 8.1 fL (7.6-11.3); RBC Red Blood Cell Count 4.35 M/uL (4.33-5.43)
[2022-08-15 05:28] LABS: Albumin 2.7 g/dL (3.4-5.0); Bilirubin Total 0.3 mg/dL (0.2-1.0); Potassium 3.7 mEq/L (3.5-5.1); Protein, Total 5.8 g/dL (6.4-8.2)
[2022-08-15 05:34] VITALS: O2SAT 95
[2022-08-15] MEDS: NA CHLORIDE 0.9% 1,000 ML IV SCH (05:43)
[2022-08-15] MEDS: ENOXAPARIN 40 MG/0.4 ML SQ SCH (07:52)
--- NOTE | 2022-08-15 08:28 | P.PN ---
Subjective Date of Service: 08/15/22 Chief Complaint: Intentional overdose Subjective: No new changes, Improving (More stable and less restless.) Physical Examination - Vital Signs Temperature: 98.1 F Blood Pressure: 124/69 Pulse: 71 Respirations: 15 Pulse Ox (%): 99 - Physical Exam HEENT: Atraumatic, Normocephalic Neck: Supple Respiratory: Normal air movement Cardiovascular: Regular rate/rhythm, Normal S1 S2 Gastrointestinal: Soft and benign Musculoskeletal: No swelling Assessment And Plan - Plan Plan History of paranoid schizophrenia History of depression History of bipolar disorder Acute kidney injury-post contrast exposure, resolving.. Metabolic encephalopathy. Parasuicide Plan: His creatinine is now much improved. JARAD episode is not resolving. Latest value of creatinine is 1.138. Nephrology following for management recommendation. we will continue to dose medication for eGFR. We will continue to follow nephrology recommendations. We will continue to avoid exposure to nephrotoxins. we do think his JARAD episode is due to contrast exposure. He is still significantly affected by multiple drugs taken however he is clinically stable with stable vitals. We will continue aggressive IV hydration to assist with expelling overdosed drugs and also to hydrate him for his contrast-induced nephropathy episode. Psychiatry recommendation pending.
[2022-08-15] MEDS: NACHLORIDE 0.45% 1,000 ML IV SCH ×2 (09:49→22:37)
[2022-08-15] MEDS ORDERED: POTASSIUM CL SA 10 MEQ TAB PO ONE (10:32)
[2022-08-15] MEDS: ONDANSETRON 4 MG/2 ML VIAL IV PRN ×2 (12:52→18:21)
[2022-08-16 05:36] LABS: Absolute Lymphocytes (CBC) 2.1 K/uL (0.7-4.9); Hematocrit 38.7 % (39.6-49.0); Lymphocytes % 25.1 % (15.3-44.8); MCV 91.1 fL (80-100); MPV 8.4 fL (7.6-11.3); RBC Red Blood Cell Count 4.25 M/uL (4.33-5.43)
[2022-08-16 05:50] LABS: Albumin 2.8 g/dL (3.4-5.0); Bilirubin Total 0.4 mg/dL (0.2-1.0); Protein, Total 6.1 g/dL (6.4-8.2)
[2022-08-16] MEDS: ENOXAPARIN 40 MG/0.4 ML SQ SCH (07:33)
[2022-08-16] MEDS ORDERED: ESCITALOPRAM 20 MG TAB PO SCH (09:00)
[2022-08-16 14:18] VITALS: TEMP 97
[2022-08-16 17:26] VITALS: BP 137/66
[2022-08-16] MEDS ORDERED: QUETIAPINE 100MG TAB PO SCH (21:00)
[2022-08-16] MEDS ORDERED: HOME MED 1 EA UNK (Buprenorphine Hcl/Naloxone Hcl [Suboxone 8 Mg-2 Mg Sl Film] Film) SL SCH (21:00)
[2022-08-17] MEDS ORDERED: DIVALPROEX DR 500MG TAB PO SCH (09:00)
[2022-08-17] MEDS ORDERED: BUSPIRONE HCL 15 MG TABLET PO SCH (09:00)
== END 2022-08-16 17:10 | disposition home or self-care (01) | DRG 917 ==
LOC: ER 23:02 → ERHOLD 08-13 05:25 → 3RD-ICU 08-13 10:05
PROVIDERS: ADMIT Internal Medicine Nephrology; ATTEND Hospitalist
PROC: 02HV33Z Insertion of Infusion Device into Superior Vena Cava, Percutaneous Approach (ICD-10-PCS; principal; 2022-08-13)
DX: T46.1X2A Poisoning by calcium-channel blockers, intentional self-harm, initial encounter (principal); G93.41 Metabolic encephalopathy; F20.0 Paranoid schizophrenia; N17.9 Acute kidney failure, unspecified; E87.6 Hypokalemia; F41.9 Anxiety disorder, unspecified; F31.9 Bipolar disorder, unspecified; T46.5X2A Poisoning by other antihypertensive drugs, intentional self-harm, initial encounter; T42.6X2A Poisoning by other antiepileptic and sedative-hypnotic drugs, intentional self-harm, initial encounter; Z91.51 Personal history of suicidal behavior; Z79.899 Other long term (current) drug therapy
CPT/HCPCS: 36415; 71045; 80048; 80053; 80076; 80307; 81001; 83735; 84439; 84443; 85025; 85610; 85730; 93005; 96361; 96365; 96372; 96375; 99285; G0480; J0610; J1610; J1650; J2405; J2550; J7030; J7799